=== PATIENT | male | born 1955 | race Caucasian/White ===

== ENCOUNTER 2021-01-11 12:38 | Outpatient (REF) | payer MEDICARE, SELFPAY ==
[2021-01-11 14:11] LABS: MANUAL DIFF FLAG NO
[2021-01-11 14:23] LABS: Basophils Percent Auto 0.7 % (0-2); Eosinophils Absolute Auto 0.3 X10*3/uL (0.0-0.4); Eosinophils Percent Auto 4.3 % (0-4); Hematocrit 46.7 % (42-52); Hemoglobin 15.9 g/dl (14.0-18.0); Imm Gran Abs Auto 0.02 X10*3/uL (0.00-0.03); Imm Gran Pct Auto 0.3 % (0.0-0.4); Lymphocytes Absolute Auto 1.8 X10*3/uL (1.2-4.9); Lymphocytes Percent Auto 31.5 % (20-40); Mean Corpuscular Hemoglobin 29.7 pg (27.0-33.0); Mean Corpuscular Volume 87.1 fL (80-98); Mean Platelet Volume 10.2 fL (9.4-12.4); Monocytes Absolute Auto 0.6 X10*3/uL (0.1-1.2); Monocytes Percent Auto 10.2 % (2-11); Neutrophils Absolute Auto 3.1 X10*3/uL (2.0-8.3); Platelet Count 277 X10*3/uL (160-400); Red Blood Count 5.36 X10*6/uL (4.60-5.80); Red Cell Distribution Width 14.1 % (11.0-16.0); White Blood Count 5.8 X10*3/uL (4.8-10.8)
[2021-01-11 14:33] LABS: Alanine Aminotransferase 59 U/L (0-40); Albumin Level 4.7 g/dL (3.5-5.0); Alkaline Phosphatase 60 U/L (39-117); Anion Gap 15 (12-20); Aspartate Amino Transferase 44 U/L (5-37); Bilirubin Total 1.1 mg/dL (0.0-1.0); Blood Urea Nitrogen 19 mg/dL (9-16); Carbon Dioxide 22 mmol/L (22-29); Chloride 110 mmol/L (96-108); Cholesterol 195 mg/dL; Estimated Glomerular Filt Rate > 60; Glucose Fasting 88 mg/dL (60-99); HDL Cholesterol 33 mg/dL; LDL Cholesterol Calculated 136 mg/dl; Potassium 3.9 mmol/L (3.3-5.1); Sodium 143 mmol/L (135-145); Total Protein 7.8 g/dL (6.5-8.0); Triglycerides 130 mg/dL
[2021-01-11 15:32] LABS: Prostate Specific Antigen 4.62 ng/mL (<0.05-4.0)
== END 2021-01-11 12:39 | disposition home or self-care (01) ==
LOC: HO.10HDL 12:38
PROVIDERS: Visit Provider Internal Medicine Medical Oncology
DX: Z12.5 Encounter for screening for malignant neoplasm of prostate (principal); I10 Essential (primary) hypertension; E66.9 Obesity, unspecified; J44.9 Chronic obstructive pulmonary disease, unspecified; Z87.891 Personal history of nicotine dependence
CPT/HCPCS: 36415; 80053; 80061; 84153; 85025

== ENCOUNTER 2021-04-12 12:30 | Outpatient (REF) | payer MEDICARE, SELFPAY ==
[2021-04-12 13:22] LABS: MANUAL DIFF FLAG NO
[2021-04-12 13:25] LABS: Basophils Percent Auto 0.7 % (0-2); Eosinophils Absolute Auto 0.2 X10*3/uL (0.0-0.4); Eosinophils Percent Auto 3.6 % (0-4); Hemoglobin 15.7 g/dl (14.0-18.0); Imm Gran Abs Auto 0.01 X10*3/uL (0.00-0.03); Imm Gran Pct Auto 0.2 % (0.0-0.4); Lymphocytes Absolute Auto 2.3 X10*3/uL (1.2-4.9); Lymphocytes Percent Auto 38.3 % (20-40); Mean Corpuscular HGB Conc 34.1 g/dl (31.0-36.0); Mean Corpuscular Hemoglobin 29.9 pg (27.0-33.0); Mean Corpuscular Volume 87.6 fL (80-98); Mean Platelet Volume 10.3 fL (9.4-12.4); Monocytes Absolute Auto 0.7 X10*3/uL (0.1-1.2); Monocytes Percent Auto 10.8 % (2-11); Neutrophils Absolute Auto 2.8 X10*3/uL (2.0-8.3); Neutrophils Percent Auto 46.4 % (45-73); Platelet Count 292 X10*3/uL (160-400); Red Blood Count 5.25 X10*6/uL (4.60-5.80); Red Cell Distribution Width 13.9 % (11.0-16.0); White Blood Count 6.1 X10*3/uL (4.8-10.8)
[2021-04-12 14:03] LABS: Alanine Aminotransferase 47 U/L (0-40); Albumin Level 4.5 g/dL (3.5-5.0); Alkaline Phosphatase 56 U/L (39-117); Amylase 137 U/L (28-100); Anion Gap 12 (12-20); Aspartate Amino Transferase 31 U/L (5-37); Bilirubin Total 0.6 mg/dL (0.0-1.0); Blood Urea Nitrogen 18 mg/dL (9-16); Calcium 9.7 mg/dL (8.4-10.2); Carbon Dioxide 24 mmol/L (22-29); Chloride 111 mmol/L (96-108); Estimated Glomerular Filt Rate > 60; Glucose Random 82 mg/dL (60-115); Lipase 43 U/L (8-78); Potassium 4.1 mmol/L (3.3-5.1); Sodium 143 mmol/L (135-145); Total Protein 7.7 g/dL (6.5-8.0)
[2021-04-12 14:24] LABS: Prostate Specific Antigen 5.27 ng/mL (<0.05-4.0)
== END 2021-04-12 12:31 | disposition home or self-care (01) ==
LOC: HO.10HDL 12:30
PROVIDERS: Visit Provider Internal Medicine Medical Oncology
DX: Z12.5 Encounter for screening for malignant neoplasm of prostate (principal); I10 Essential (primary) hypertension; J44.9 Chronic obstructive pulmonary disease, unspecified; K80.20 Calculus of gallbladder without cholecystitis without obstruction; E66.9 Obesity, unspecified
CPT/HCPCS: 36415; 80053; 82150; 83690; 84153; 85025

== ENCOUNTER 2021-05-10 12:31 | Outpatient (REF) | payer MEDICARE, SELFPAY ==
[2021-05-10 13:47] LABS: Amylase 207 U/L (28-100)
[2021-05-10 13:57] LABS: PSA,Total (Free>4and<10) 5.06 ng/mL (0.00-4.00)
[2021-05-11 12:30] LABS: Free Prostate Spec Ag 0.5 ng/mL; Percent Free Prostate Spec Ag 11 % (calc) (>25); Prostate Specific Ag Total 4.6 ng/mL (< OR = 4.0)
== END 2021-05-10 12:32 | disposition home or self-care (01) ==
LOC: HO.10HDL 12:31
PROVIDERS: PCP Internal Medicine Medical Oncology; Visit Provider Internal Medicine Medical Oncology
DX: Z71.89 Other specified counseling (principal)
CPT/HCPCS: 36415; 82150; 84153; 84154

== ENCOUNTER 2021-08-10 12:40 | Outpatient (REF) | payer MEDICARE, SELFPAY ==
[2021-08-10 13:58] LABS: MANUAL DIFF FLAG NO
[2021-08-10 14:08] LABS: Basophils Percent Auto 0.7 % (0-2); Eosinophils Absolute Auto 0.4 X10*3/uL (0.0-0.4); Eosinophils Percent Auto 6.6 % (0-4); Hematocrit 45.5 % (42.0-52.0); Hemoglobin 15.6 g/dl (14.0-18.0); Imm Gran Abs Auto 0.02 X10*3/uL (0.00-0.03); Imm Gran Pct Auto 0.3 % (0.0-0.4); Lymphocytes Percent Auto 35.1 % (20-40); Mean Corpuscular HGB Conc 34.3 g/dl (31.0-36.0); Mean Corpuscular Volume 87.5 fL (80.0-98.0); Mean Platelet Volume 9.8 fL (9.4-12.4); Monocytes Absolute Auto 0.5 X10*3/uL (0.1-1.2); Monocytes Percent Auto 9.3 % (2-11); Neutrophils Absolute Auto 2.7 x10*3/uL (2.0-8.3); Platelet Count 285 X10*3/uL (160-400); Red Cell Distribution Width 14.1 % (11.0-16.0); White Blood Count 5.7 X10*3/uL (4.8-10.8)
[2021-08-10 14:51] LABS: Alanine Aminotransferase 52 U/L (0-40); Albumin Level 4.6 g/dL (3.5-5.0); Alkaline Phosphatase 54 U/L (39-117); Amylase 114 U/L (28-100); Anion Gap 13 (12-20); Aspartate Amino Transferase 42 U/L (5-37); Bilirubin Total 0.7 mg/dL (0.0-1.0); Blood Urea Nitrogen 16 mg/dL (9-16); Carbon Dioxide 22 mmol/L (22-29); Chloride 110 mmol/L (96-108); Cholesterol 205 mg/dL; Estimated Glomerular Filt Rate > 60; Glucose Fasting 91 mg/dL (60-99); HDL Cholesterol 33 mg/dL; LDL Cholesterol Calculated 143 mg/dl; Potassium 3.7 mmol/L (3.3-5.1); Sodium 141 mmol/L (135-145); Total Protein 7.7 g/dL (6.5-8.0); Triglycerides 148 mg/dL
== END 2021-08-10 12:41 | disposition home or self-care (01) ==
LOC: HO.10HDL 12:40
PROVIDERS: Visit Provider Internal Medicine Medical Oncology
DX: I10 Essential (primary) hypertension (principal); J44.9 Chronic obstructive pulmonary disease, unspecified; E66.9 Obesity, unspecified; N40.0 Benign prostatic hyperplasia without lower urinary tract symptoms
CPT/HCPCS: 36415; 80053; 80061; 82150; 85025

== ENCOUNTER 2021-08-21 17:49 | Emergency (ER) | payer MEDICARE, SELFPAY ==
--- NOTE | ~2021-08-21 | XR_ITS ---
EXAMINATION: XR FOREARM, RIGHT XR HAND/WRIST, RIGHT CLINICAL INFORMATION: Pain following fall. COMPARISON: None TECHNIQUE: AP and lateral views of the right forearm. AP, oblique, and lateral views of the right hand and wrist. FINDINGS: RIGHT FOREARM: No proximal radius or ulnar fracture. Tiny ulnotrochlear marginal osteophytes. No osseous erosion. RIGHT HAND AND WRIST: Mildly displaced, oblique fracture through the radial styloid with a resultant fracture gap measuring approximately 0.2 cm and contacting the ulnar aspect of the articular surface. There is mild comminution with an additional fracture fragment along the anterior aspect of the articular surface measuring up to 0.7 cm in AP dimension. Circumferential soft tissue swelling. XR/XR forearm RT 2V IMPRESSION: Comminuted distal radial fracture with multiple extensions to the radiocarpal articular surface. Circumferential soft tissue swelling.
--- NOTE | ~2021-08-21 | XR_ITS ---
EXAMINATION: XR FOREARM, RIGHT XR HAND/WRIST, RIGHT CLINICAL INFORMATION: Pain following fall. COMPARISON: None TECHNIQUE: AP and lateral views of the right forearm. AP, oblique, and lateral views of the right hand and wrist. FINDINGS: RIGHT FOREARM: No proximal radius or ulnar fracture. Tiny ulnotrochlear marginal osteophytes. No osseous erosion. RIGHT HAND AND WRIST: Mildly displaced, oblique fracture through the radial styloid with a resultant fracture gap measuring approximately 0.2 cm and contacting the ulnar aspect of the articular surface. There is mild comminution with an additional fracture fragment along the anterior aspect of the articular surface measuring up to 0.7 cm in AP dimension. Circumferential soft tissue swelling. XR/XR hand wrist RT IMPRESSION: Comminuted distal radial fracture with multiple extensions to the radiocarpal articular surface. Circumferential soft tissue swelling.
[2021-08-21 17:59] VITALS: BP 152/77; PULSE 78; RESP 18; TEMP 36.9; O2SAT 98; BMI 30.2
[2021-08-21] MEDS: oxyCODONE HCl Immed Release 5 MG TABLET PO (19:19)
--- NOTE | 2021-08-21 19:46 | ED.EXTPRO ---
HPI - Extremity Problem General Chief complaint: Extremity Injury, Upper Stated complaint: fall - right wrist swelling Time Seen by Provider: 08/21/21 19:10 Source: patient Mode of arrival: ambulatory Limitations: no limitations History of Present Illness HPI Narrative: 66-year-old male who was blowing leaves on his roof, getting down off his ladder, and missed the last step and fell off of the ladder from the 2nd rung, about 2 ft fall, and his right wrist when under the leaf blower backpack he was wearing. He did not hit his head, no loss of consciousness. Related Data Previous Rx's Medication Instructions Recorded oxycodone 5 mg capsule 5 mg PO Q6H PRN #12 cap MDD 20 mg 08/21/21 oxycodone 5 mg capsule 5 mg PO TID PRN 3 Days #9 cap 08/21/21 Allergies Allergy/AdvReac Type Severity Reaction Status Date / Time No Known Allergies Allergy Unverified 06/11/20 16:52 Review of Systems Constitutional: Constitutional: Denies body ache(s), Denies chills, Denies fatigue, Denies fever(s), Denies headache(s), Denies malaise and Denies weakness Eyes: Eyes: Denies diplopia ENT: Denies vertigo, Denies dizziness, Denies otalgia, Denies headache(s), Denies mouth pain, Denies post nasal drip, Denies sinus pain, Denies sinus pressure, Denies sore throat and Denies throat swelling Cardiovascular: Cardiovascular: Denies chest pain, Denies syncope, Denies leg edema, Denies lightheadedness, Denies Loss of Consciousness, Denies palpitations and Denies dyspnea Respiratory: Respiratory: Denies chest congestion, Denies cough and Denies dyspnea Musculoskeletal: Musculoskeletal: Reports arthralgias, Reports joint swelling and Reports tingling Neurologic: Denies confusion, Denies vertigo, Denies dizziness, Denies syncope, Denies headache(s), Reports tingling and Denies weakness Psychiatric: Psychiatric: Denies anxiety, Denies confusion and Denies depression Endocrine: Endocrine: Denies fatigue and Denies palpitations Allergic/Immunologic: Allergic/Immunologic: Denies throat swelling PMFSH Past Medical History Medical History COPD (chronic obstructive pulmonary disease) HTN (hypertension) Prostate CA Social History Social History Advance Directives: No Advance Directives Information Provided: No Physical Exam Vital Signs: Vital Signs: Last Vital Signs Temp 98.4 F 08/21/21 17:59 Pulse 78 08/21/21 17:59 Resp 18 08/21/21 17:59 BP 152/77 H 08/21/21 17:59 Pulse Ox 98 08/21/21 17:59 Body Mass Index 30.2 Const: General: No confusion Nutritional Appearance: well nourished Orientation/consciousness: No confusion Limitations: no limitations Eyes: Conjunctivae: conjunctivae normal Pupils: Equal, round and reactive pupils present EOM: EOMs intact bilaterally Neck: Neck: Yes full ROM, Yes no lymphadenopathy and Yes supple Resp: Effort & Inspection: normal respiratory effort and able to speak in complete sentences Auscultation: clear to auscultation bilaterally, no crackles, no rales, no rhonchi and no wheezes Cardio: Rate: regular rate Rhythm: regular rhythm Heart sounds: S1 normal heart sound present and S2 normal heart sound present Skin: General skin exam: no rashes or lesions noted Neuro: General: No confusion Cranial nerves: Yes Equal, round and reactive pupils present Extrem: Right upper extremity: normal capillary refill and wrist Details: abnormal to inspection Details: joint swelling, tenderness Location: of the distal radius, swelling Location: of the dorsal wrist, normal ROM, normal vascular exam and radial pulse present; Negative for no unusual warmth, no lacerations, no ecchymosis and no crepitus Psych: Appearance: grossly normal Affect: normal affect Attitude: cooperative Thought process: Normal thought process present Course Course Course Narrative: 66-year-old male with comminuted distal radial fracture extending into the articular surface. Patient was splinted in a volar fiberglass splint, counseled to employ rice, given oxycodone, and follow-up with Ortho Discharge Plan Discharge Clinical Impression: Fracture of wrist Qualifiers: Encounter type: initial encounter Fracture type: closed Laterality: right Qualified Code(s): S62.101A - Fracture of unspecified carpal bone, right wrist, initial encounter for closed fracture Patient Disposition: Home, Self-Care Instructions: Splint Care (ED), R.I.C.E. Treatment (ED) Additional Instructions: Please call [facility] at [phone] Monday for follow-up appointment this week. Please leave the wrist print on it until you are seen by orthopedics. Please rest, and elevate your right hand. Use oxycodone as prescribed for pain. Please return for any new or concerning symptoms. Prescriptions: New oxycodone 5 mg capsule 5 mg PO TID PRN (Reason: pain) 3 Days Qty: 9 RF: 0 oxycodone 5 mg capsule 5 mg PO Q6H MDD 20 mg PRN (Reason: pain) Qty: 12 RF: 0 Referrals: Fede Hook MD [Physician] - 2 days Interventions: ED Discharge Assessment Last Done: 08/21/21 19:50 Discharge Date/Time: 08/21/21 19:54
== END 2021-08-21 19:54 | disposition home or self-care (01) ==
PROVIDERS: Emergency Provider Internal Medicine; PCP Internal Medicine Medical Oncology
DX: S52.501A Unspecified fracture of the lower end of right radius, initial encounter for closed fracture (principal); I10 Essential (primary) hypertension; J44.9 Chronic obstructive pulmonary disease, unspecified; W11.XXXA Fall on and from ladder, initial encounter; Y93.9 Activity, unspecified; Y92.009 Unspecified place in unspecified non-institutional (private) residence as the place of occurrence of the external cause; Y99.9 Unspecified external cause status
CPT/HCPCS: 29125; 73090; 73110; 73130; 99283; 99284

== ENCOUNTER 2021-08-23 09:07 | Outpatient (REF) | payer MEDICARE, SELFPAY ==
--- NOTE | ~2021-08-23 | XR_ITS ---
EXAMINATION: XR WRIST, RIGHT CLINICAL INFORMATION: Pain. Fracture. COMPARISON: Previous x-rays most recent 08/21/2021 TECHNIQUE: PA, lateral, and oblique views of the right wrist. FINDINGS: There is a nondisplaced fracture of the radial styloid and appears unchanged. The intra-articular with the radiocarpal and distal radial ulnar joints. No other fracture is seen. There may be a cyst in the triquetrum. Carpal bones are otherwise normal. There is diffuse soft tissue swelling. XR/XR wrist RT min 3V IMPRESSION: No change in right distal radius fracture.
== END 2021-08-23 09:08 | disposition home or self-care (01) ==
LOC: HO.HOSX 09:07
PROVIDERS: Visit Provider Physician Assistant
DX: S52.501A Unspecified fracture of the lower end of right radius, initial encounter for closed fracture (principal)
CPT/HCPCS: 29085; 73110; 99202

== ENCOUNTER 2021-08-31 10:07 | Outpatient (REF) | payer MEDICARE, SELFPAY ==
--- NOTE | ~2021-08-31 | XR_ITS ---
EXAMINATION: XR WRIST, RIGHT CLINICAL INFORMATION: Right wrist pain status post fracture. COMPARISON: None TECHNIQUE: PA, lateral, and oblique views of the right wrist. FINDINGS: Again seen is a nondisplaced, comminuted intra-articular fracture of the distal radius with similar appearance. The distal ulna is intact. The carpal bones are normally aligned. The soft tissues are unremarkable. XR/XR wrist RT min 3V IMPRESSION: Similar appearance of distal right radial fracture without evidence for significant interval healing.
== END 2021-08-31 10:08 | disposition home or self-care (01) ==
LOC: HO.HOSX 10:07
PROVIDERS: Visit Provider Orthopaedic Surgery
DX: S52.501D Unspecified fracture of the lower end of right radius, subsequent encounter for closed fracture with routine healing (principal)
CPT/HCPCS: 73110; 99212

== ENCOUNTER 2021-09-29 08:30 | Outpatient (REF) | payer MEDICARE, SELFPAY ==
--- NOTE | ~2021-09-29 | XR_ITS ---
EXAMINATIONS: XR wrist RT min 3V CLINICAL INFORMATION: Reason for Exam M25.531 - Pain in right wrist COMPARISON: 08/31/2021 VIEWS: Frontal lateral and oblique FINDINGS: Redemonstration of a nondisplaced comminuted intra-articular fracture of the distal radius. Bone alignments remain satisfactory. No new fractures. XR/XR wrist RT min 3V IMPRESSION: Unhealed stable nondisplaced comminuted intra-articular fracture of the distal radius.
== END 2021-09-29 08:31 | disposition home or self-care (01) ==
LOC: HO.HOSX 08:30
PROVIDERS: Visit Provider Orthopaedic Surgery
DX: S52.501D Unspecified fracture of the lower end of right radius, subsequent encounter for closed fracture with routine healing (principal)
CPT/HCPCS: 73110; 99212

== ENCOUNTER 2022-03-16 11:46 | Outpatient (REF) | payer MEDICARE, SELFPAY ==
[2022-03-16 13:47] LABS: MANUAL DIFF FLAG NO
[2022-03-16 14:09] LABS: Basophils Absolute Auto 0.1 X10*3/uL (0.0-0.2); Eosinophils Absolute Auto 0.2 X10*3/uL (0.0-0.4); Hematocrit 47.8 % (42.0-52.0); Imm Gran Abs Auto 0.01 X10*3/uL (0.00-0.03); Imm Gran Pct Auto 0.2 % (0.0-0.4); Lymphocytes Absolute Auto 1.7 X10*3/uL (1.2-4.9); Lymphocytes Percent Auto 32.6 % (20-40); Mean Corpuscular HGB Conc 33.5 g/dl (31.0-36.0); Mean Corpuscular Hemoglobin 29.4 pg (27.0-33.0); Mean Corpuscular Volume 87.9 fL (80.0-98.0); Mean Platelet Volume 10.3 fL (9.4-12.4); Monocytes Absolute Auto 0.5 X10*3/uL (0.1-1.2); Monocytes Percent Auto 9.9 % (2-11); Neutrophils Absolute Auto 2.8 x10*3/uL (2.0-8.3); Neutrophils Percent Auto 52.3 % (45-73); Platelet Count 295 X10*3/uL (160-400); Red Blood Count 5.44 X10*6/uL (4.60-5.80); White Blood Count 5.3 X10*3/uL (4.8-10.8)
[2022-03-16 14:31] LABS: Alanine Aminotransferase 54 U/L (0-40); Albumin Level 4.6 g/dL (3.5-5.0); Alkaline Phosphatase 66 U/L (39-117); Anion Gap 16 (12-20); Aspartate Amino Transferase 48 U/L (5-37); Bilirubin Total 0.8 mg/dL (0.0-1.0); Blood Urea Nitrogen 19 mg/dL (9-16); Calcium 9.2 mg/dL (8.4-10.2); Carbon Dioxide 19 mmol/L (22-29); Chloride 110 mmol/L (96-108); Cholesterol 188 mg/dL; Estimated Glomerular Filt Rate > 60; Glucose Fasting 85 mg/dL (60-99); HDL Cholesterol 32 mg/dL; LDL Cholesterol Calculated 132 mg/dl; Potassium 4.5 mmol/L (3.3-5.1); Sodium 140 mmol/L (135-145); Total Protein 8.2 g/dL (6.5-8.0); Triglycerides 123 mg/dL
[2022-03-16 15:08] LABS: Prostate Specific Antigen 7.31 ng/mL (<0.05-4.0)
== END 2022-03-16 11:47 | disposition home or self-care (01) ==
LOC: HO.10HDL 11:46
PROVIDERS: Visit Provider Internal Medicine Medical Oncology
DX: Z12.5 Encounter for screening for malignant neoplasm of prostate (principal); I10 Essential (primary) hypertension; N40.0 Benign prostatic hyperplasia without lower urinary tract symptoms; C61 Malignant neoplasm of prostate; E66.3 Overweight
CPT/HCPCS: 36415; 80053; 80061; 84153; 85025

== ENCOUNTER 2022-05-10 12:07 | Outpatient (REF) | payer MEDICARE, SELFPAY ==
[2022-05-10 13:16] LABS: MANUAL DIFF FLAG NO
[2022-05-10 13:35] LABS: Basophils Percent Auto 0.7 % (0-2); Eosinophils Absolute Auto 0.2 X10*3/uL (0.0-0.4); Eosinophils Percent Auto 3.8 % (0-4); Hemoglobin 15.7 g/dl (14.0-18.0); Imm Gran Abs Auto 0.01 X10*3/uL (0.00-0.03); Imm Gran Pct Auto 0.2 % (0.0-0.4); Lymphocytes Absolute Auto 2.3 X10*3/uL (1.2-4.9); Lymphocytes Percent Auto 40.3 % (20-40); Mean Corpuscular HGB Conc 34.1 g/dl (31.0-36.0); Mean Corpuscular Hemoglobin 29.4 pg (27.0-33.0); Mean Corpuscular Volume 86.1 fL (80.0-98.0); Monocytes Absolute Auto 0.5 X10*3/uL (0.1-1.2); Monocytes Percent Auto 9.2 % (2-11); Neutrophils Absolute Auto 2.6 x10*3/uL (2.0-8.3); Neutrophils Percent Auto 45.8 % (45-73); Platelet Count 282 X10*3/uL (160-400); Red Blood Count 5.34 X10*6/uL (4.60-5.80); Red Cell Distribution Width 13.9 % (11.0-16.0); White Blood Count 5.8 X10*3/uL (4.8-10.8)
[2022-05-10 13:43] LABS: Alanine Aminotransferase 49 U/L (0-40); Albumin Level 4.4 g/dL (3.5-5.0); Alkaline Phosphatase 63 U/L (39-117); Anion Gap 13 (12-20); Aspartate Amino Transferase 37 U/L (5-37); Bilirubin Total 0.3 mg/dL (0.0-1.0); Blood Urea Nitrogen 13 mg/dL (9-16); Carbon Dioxide 24 mmol/L (22-29); Chloride 108 mmol/L (96-108); Estimated Glomerular Filt Rate > 60; Glucose Random 94 mg/dL (60-115); Potassium 3.6 mmol/L (3.3-5.1); Sodium 141 mmol/L (135-145); Total Protein 7.7 g/dL (6.5-8.0)
[2022-05-10 13:55] LABS: Prostate Specific Antigen 6.52 ng/mL (<0.05-4.0)
== END 2022-05-10 12:08 | disposition home or self-care (01) ==
LOC: HO.10HDL 12:07
PROVIDERS: Visit Provider Internal Medicine Medical Oncology
DX: Z12.5 Encounter for screening for malignant neoplasm of prostate (principal); C61 Malignant neoplasm of prostate
CPT/HCPCS: 36415; 80053; 84153; 85025

== ENCOUNTER 2022-11-17 09:28 | Outpatient (REF) | payer MEDICARE, SELFPAY ==
[2022-11-17 10:54] LABS: MANUAL DIFF FLAG NO
[2022-11-17 11:25] LABS: Basophils Percent Auto 0.6 % (0-2); Eosinophils Absolute Auto 0.2 X10*3/uL (0.0-0.4); Eosinophils Percent Auto 2.7 % (0-4); Hematocrit 47.2 % (42.0-52.0); Imm Gran Abs Auto 0.01 X10*3/uL (0.00-0.03); Imm Gran Pct Auto 0.1 % (0.0-0.4); Lymphocytes Absolute Auto 2.8 X10*3/uL (1.2-4.9); Lymphocytes Percent Auto 41.7 % (20-40); Mean Corpuscular HGB Conc 33.9 g/dl (31.0-36.0); Mean Corpuscular Hemoglobin 29.3 pg (27.0-33.0); Mean Corpuscular Volume 86.4 fL (80.0-98.0); Mean Platelet Volume 10.4 fL (9.4-12.4); Monocytes Absolute Auto 0.6 X10*3/uL (0.1-1.2); Monocytes Percent Auto 8.5 % (2-11); Neutrophils Absolute Auto 3.1 x10*3/uL (2.0-8.3); Neutrophils Percent Auto 46.4 % (45-73); Platelet Count 297 X10*3/uL (160-400); Red Blood Count 5.46 X10*6/uL (4.60-5.80); Red Cell Distribution Width 14.3 % (11.0-16.0); White Blood Count 6.7 X10*3/uL (4.8-10.8)
[2022-11-17 12:08] LABS: Alanine Aminotransferase 56 U/L (0-40); Albumin Level 4.4 g/dL (3.5-5.0); Alkaline Phosphatase 60 U/L (39-117); Anion Gap 16 (12-20); Aspartate Amino Transferase 44 U/L (5-37); Bilirubin Total 0.9 mg/dL (0.0-1.0); Blood Urea Nitrogen 15 mg/dL (9-16); Calcium 9.3 mg/dL (8.4-10.2); Carbon Dioxide 22 mmol/L (22-29); Chloride 111 mmol/L (96-108); Cholesterol 206 mg/dL; Estimated Glomerular Filt Rate > 60; Glucose Fasting 76 mg/dL (60-99); HDL Cholesterol 32 mg/dL; LDL Cholesterol Calculated 140 mg/dl; Potassium 4.3 mmol/L (3.3-5.1); Prostate Specific Antigen 8.43 ng/mL (<0.05-4.0); Sodium 145 mmol/L (135-145); Total Protein 7.5 g/dL (6.5-8.0); Triglycerides 174 mg/dL
== END 2022-11-17 09:29 | disposition home or self-care (01) ==
LOC: HO.10HDL 09:28
PROVIDERS: Visit Provider Internal Medicine Medical Oncology
DX: Z12.5 Encounter for screening for malignant neoplasm of prostate (principal); C61 Malignant neoplasm of prostate; I10 Essential (primary) hypertension
CPT/HCPCS: 36415; 80053; 80061; 84153; 85025

== ENCOUNTER 2023-01-05 11:28 | Outpatient (REF) | payer MEDICARE, SELFPAY ==
[2023-01-05 13:33] LABS: Basophils Percent Auto 0.6 % (0-2); Eosinophils Absolute Auto 0.2 X10*3/uL (0.0-0.4); Eosinophils Percent Auto 2.5 % (0-4); Hematocrit 46.2 % (42.0-52.0); Hemoglobin 15.7 g/dl (14.0-18.0); Imm Gran Abs Auto 0.02 X10*3/uL (0.00-0.03); Imm Gran Pct Auto 0.3 % (0.0-0.4); Lymphocytes Absolute Auto 2.3 X10*3/uL (1.2-4.9); Lymphocytes Percent Auto 35.4 % (20-40); MANUAL DIFF FLAG NO; Mean Corpuscular Hemoglobin 29.3 pg (27.0-33.0); Mean Corpuscular Volume 86.4 fL (80.0-98.0); Mean Platelet Volume 10.1 fL (9.4-12.4); Monocytes Absolute Auto 0.6 X10*3/uL (0.1-1.2); Monocytes Percent Auto 8.6 % (2-11); Neutrophils Absolute Auto 3.4 x10*3/uL (2.0-8.3); Neutrophils Percent Auto 52.6 % (45-73); Platelet Count 284 X10*3/uL (160-400); Red Blood Count 5.35 X10*6/uL (4.60-5.80); Red Cell Distribution Width 14.2 % (11.0-16.0); White Blood Count 6.5 X10*3/uL (4.8-10.8)
[2023-01-05 13:58] LABS: Alanine Aminotransferase 47 U/L (0-40); Albumin Level 4.4 g/dL (3.5-5.0); Alkaline Phosphatase 65 U/L (39-117); Anion Gap 12 (12-20); Aspartate Amino Transferase 38 U/L (5-37); Bilirubin Total 0.9 mg/dL (0.0-1.0); Blood Urea Nitrogen 16 mg/dL (9-16); Calcium 9.1 mg/dL (8.4-10.2); Carbon Dioxide 24 mmol/L (22-29); Chloride 109 mmol/L (96-108); Estimated Glomerular Filt Rate > 60; Glucose Fasting 81 mg/dL (60-99); Potassium 4.1 mmol/L (3.3-5.1); Sodium 141 mmol/L (135-145); Total Protein 7.2 g/dL (6.5-8.0)
[2023-01-05 14:14] LABS: Prostate Specific Antigen 8.74 ng/mL (<0.05-4.0)
== END 2023-01-05 11:29 | disposition home or self-care (01) ==
LOC: HO.10HDL 11:28
PROVIDERS: Visit Provider Internal Medicine Medical Oncology
DX: C61 Malignant neoplasm of prostate (principal); E66.9 Obesity, unspecified; I10 Essential (primary) hypertension; Z12.5 Encounter for screening for malignant neoplasm of prostate
CPT/HCPCS: 36415; 80053; 84153; 85025

== ENCOUNTER 2023-04-07 11:38 | Outpatient (REF) | payer MEDICARE, SELFPAY ==
[2023-04-07 13:27] LABS: MANUAL DIFF FLAG NO
[2023-04-07 13:41] LABS: Basophils Percent Auto 0.5 % (0-2); Eosinophils Absolute Auto 0.1 X10*3/uL (0.0-0.4); Eosinophils Percent Auto 1.9 % (0-4); Hematocrit 47.8 % (42.0-52.0); Hemoglobin 16.2 g/dl (14.0-18.0); Imm Gran Abs Auto 0.02 X10*3/uL (0.00-0.03); Imm Gran Pct Auto 0.3 % (0.0-0.4); Lymphocytes Absolute Auto 2.2 X10*3/uL (1.2-4.9); Lymphocytes Percent Auto 35.4 % (20-40); Mean Corpuscular HGB Conc 33.9 g/dl (31.0-36.0); Mean Corpuscular Hemoglobin 29.7 pg (27.0-33.0); Mean Corpuscular Volume 87.5 fL (80.0-98.0); Mean Platelet Volume 10.3 fL (9.4-12.4); Monocytes Absolute Auto 0.5 X10*3/uL (0.1-1.2); Monocytes Percent Auto 8.3 % (2-11); Neutrophils Absolute Auto 3.4 x10*3/uL (2.0-8.3); Neutrophils Percent Auto 53.6 % (45-73); Platelet Count 293 X10*3/uL (160-400); Red Blood Count 5.46 X10*6/uL (4.60-5.80); White Blood Count 6.3 X10*3/uL (4.8-10.8)
[2023-04-07 14:49] LABS: Alanine Aminotransferase 62 U/L (0-40); Albumin Level 4.7 g/dL (3.5-5.0); Alkaline Phosphatase 51 U/L (39-117); Anion Gap 12 (12-20); Aspartate Amino Transferase 49 U/L (5-37); Bilirubin Total 0.9 mg/dL (0.0-1.0); Blood Urea Nitrogen 16 mg/dL (9-16); Calcium 9.3 mg/dL (8.4-10.2); Carbon Dioxide 25 mmol/L (22-29); Chloride 109 mmol/L (96-108); Cholesterol 196 mg/dL; Estimated Glomerular Filt Rate > 60; Glucose Fasting 92 mg/dL (60-99); HDL Cholesterol 36 mg/dL; LDL Cholesterol Calculated 128 mg/dl; Potassium 4.3 mmol/L (3.3-5.1); Sodium 142 mmol/L (135-145); Triglycerides 163 mg/dL
== END 2023-04-07 11:39 | disposition home or self-care (01) ==
LOC: HO.10HDL 11:38
PROVIDERS: Visit Provider Internal Medicine Medical Oncology
DX: Z12.5 Encounter for screening for malignant neoplasm of prostate (principal); I10 Essential (primary) hypertension; N40.0 Benign prostatic hyperplasia without lower urinary tract symptoms; C61 Malignant neoplasm of prostate; E66.9 Obesity, unspecified
CPT/HCPCS: 36415; 80053; 80061; 84153; 85025

== ENCOUNTER 2023-11-22 11:22 | Outpatient (REF) | payer MEDICARE, SELFPAY ==
[2023-11-22 13:16] LABS: MANUAL DIFF FLAG NO
[2023-11-22 13:25] LABS: Basophils Percent Auto 0.9 % (0-2); Eosinophils Absolute Auto 0.3 X10*3/uL (0.0-0.4); Eosinophils Percent Auto 6.1 % (0-4); Hematocrit 46.7 % (42.0-52.0); Hemoglobin 16.1 g/dl (14.0-18.0); Lymphocytes Absolute Auto 1.1 X10*3/uL (1.2-4.9); Lymphocytes Percent Auto 23.6 % (20-40); Mean Corpuscular HGB Conc 34.5 g/dl (31.0-36.0); Mean Corpuscular Hemoglobin 30.1 pg (27.0-33.0); Mean Corpuscular Volume 87.3 fL (80.0-98.0); Mean Platelet Volume 9.6 fL (9.4-12.4); Monocytes Absolute Auto 0.5 X10*3/uL (0.1-1.2); Monocytes Percent Auto 10.3 % (2-11); Neutrophils Absolute Auto 2.6 x10*3/uL (2.0-8.3); Neutrophils Percent Auto 59.1 % (45-73); Platelet Count 228 X10*3/uL (160-400); Red Blood Count 5.35 X10*6/uL (4.60-5.80); Red Cell Distribution Width 14.7 % (11.0-16.0); White Blood Count 4.5 X10*3/uL (4.8-10.8)
[2023-11-22 13:41] LABS: Alanine Aminotransferase 57 U/L (0-40); Albumin Level 4.3 g/dL (3.5-5.0); Alkaline Phosphatase 58 U/L (39-117); Anion Gap 9 (12-20); Aspartate Amino Transferase 41 U/L (5-37); Bilirubin Total 0.7 mg/dL (0.0-1.0); Blood Urea Nitrogen 17 mg/dL (9-16); Calcium 8.7 mg/dL (8.4-10.2); Carbon Dioxide 26 mmol/L (22-29); Chloride 109 mmol/L (96-108); Cholesterol 188 mg/dL (<200); Estimated Glomerular Filt Rate > 60; Glucose Fasting 91 mg/dL (60-99); HDL Cholesterol 33 mg/dL (>40); LDL Cholesterol Calculated 124 mg/dL (<100); Potassium 3.7 mmol/L (3.3-5.1); Sodium 140 mmol/L (135-145); Total Protein 7.8 g/dL (6.5-8.0); Triglycerides 157 mg/dL (<150)
[2023-11-22 13:57] LABS: Prostate Specific Antigen 4.79 ng/mL (<0.05-4.0)
[2023-11-22 18:19] LABS: Gamma Glutamyl Transpeptidase 32 U/L (11-51)
== END 2023-11-22 11:23 | disposition home or self-care (01) ==
LOC: HO.10HDL 11:22
PROVIDERS: Visit Provider Internal Medicine Medical Oncology
DX: I10 Essential (primary) hypertension (principal); J44.9 Chronic obstructive pulmonary disease, unspecified; N40.0 Benign prostatic hyperplasia without lower urinary tract symptoms; C61 Malignant neoplasm of prostate; E66.9 Obesity, unspecified; Z12.5 Encounter for screening for malignant neoplasm of prostate
CPT/HCPCS: 36415; 80053; 80061; 82977; 84153; 85025

== ENCOUNTER 2024-03-29 12:12 | Outpatient (REF) | payer MEDICARE, SELFPAY ==
[2024-03-29 13:19] LABS: MANUAL DIFF FLAG NO
[2024-03-29 13:43] LABS: Basophils Percent Auto 0.9 % (0-2); Eosinophils Absolute Auto 0.2 X10*3/uL (0.0-0.4); Eosinophils Percent Auto 3.2 % (0-4); Hematocrit 46.9 % (42.0-52.0); Hemoglobin 16.2 g/dl (14.0-18.0); Imm Gran Abs Auto 0.01 X10*3/uL (0.00-0.03); Imm Gran Pct Auto 0.2 % (0.0-0.4); Lymphocytes Absolute Auto 1.5 X10*3/uL (1.2-4.9); Mean Corpuscular HGB Conc 34.5 g/dl (31.0-36.0); Mean Corpuscular Hemoglobin 30.5 pg (27.0-33.0); Mean Corpuscular Volume 88.3 fL (80.0-98.0); Mean Platelet Volume 9.8 fL (9.4-12.4); Monocytes Absolute Auto 0.5 X10*3/uL (0.1-1.2); Monocytes Percent Auto 10.7 % (2-11); Neutrophils Absolute Auto 2.5 x10*3/uL (2.0-8.3); Platelet Count 281 X10*3/uL (160-400); Red Blood Count 5.31 X10*6/uL (4.60-5.80); Red Cell Distribution Width 13.8 % (11.0-16.0); White Blood Count 4.7 X10*3/uL (4.8-10.8)
[2024-03-29 13:44] LABS: Alanine Aminotransferase 50 U/L (0-40); Albumin Level 4.5 g/dL (3.5-5.0); Alkaline Phosphatase 54 U/L (39-117); Anion Gap 11 (12-20); Aspartate Amino Transferase 41 U/L (5-37); Bilirubin Total 0.8 mg/dL (0.0-1.0); Blood Urea Nitrogen 19 mg/dL (9-16); Calcium 9.3 mg/dL (8.4-10.2); Carbon Dioxide 23 mmol/L (22-29); Chloride 110 mmol/L (96-108); Cholesterol 203 mg/dL (<200); Estimated Glomerular Filt Rate > 60; Glucose Fasting 89 mg/dL (60-99); HDL Cholesterol 34 mg/dL (>40); LDL Cholesterol Calculated 141 mg/dL (<100); Potassium 4.2 mmol/L (3.3-5.1); Sodium 140 mmol/L (135-145); Triglycerides 141 mg/dL (<150)
[2024-03-29 13:55] LABS: Prostate Specific Antigen 1.41 ng/mL (<0.05-4.0)
== END 2024-03-29 12:13 | disposition home or self-care (01) ==
LOC: HO.10HDL 12:12
PROVIDERS: Visit Provider Internal Medicine Medical Oncology
DX: I10 Essential (primary) hypertension (principal); J44.9 Chronic obstructive pulmonary disease, unspecified; K80.20 Calculus of gallbladder without cholecystitis without obstruction; C61 Malignant neoplasm of prostate; E66.9 Obesity, unspecified; Z87.891 Personal history of nicotine dependence; Z12.5 Encounter for screening for malignant neoplasm of prostate
CPT/HCPCS: 36415; 80053; 80061; 84153; 85025

== ENCOUNTER 2024-08-07 11:51 | Outpatient (REF) | payer MEDICARE, SELFPAY ==
[2024-08-07 13:10] LABS: MANUAL DIFF FLAG NO
[2024-08-07 13:12] LABS: Basophils Absolute Auto 0.1 X10*3/uL (0.0-0.2); Basophils Percent Auto 1.3 % (0-2); Eosinophils Absolute Auto 0.3 X10*3/uL (0.0-0.4); Eosinophils Percent Auto 5.9 % (0-4); Hematocrit 47.4 % (42.0-52.0); Hemoglobin 16.2 g/dl (14.0-18.0); Imm Gran Abs Auto 0.01 X10*3/uL (0.00-0.03); Imm Gran Pct Auto 0.2 % (0.0-0.4); Lymphocytes Absolute Auto 1.9 X10*3/uL (1.2-4.9); Lymphocytes Percent Auto 34.6 % (20-40); Mean Corpuscular HGB Conc 34.2 g/dl (31.0-36.0); Mean Corpuscular Hemoglobin 30.2 pg (27.0-33.0); Mean Corpuscular Volume 88.3 fL (80.0-98.0); Mean Platelet Volume 9.4 fL (9.4-12.4); Monocytes Absolute Auto 0.5 X10*3/uL (0.1-1.2); Neutrophils Absolute Auto 2.8 x10*3/uL (2.0-8.3); Platelet Count 327 X10*3/uL (160-400); Red Blood Count 5.37 X10*6/uL (4.60-5.80); Red Cell Distribution Width 14.4 % (11.0-16.0); White Blood Count 5.6 X10*3/uL (4.8-10.8)
[2024-08-07 13:23] LABS: Alanine Aminotransferase 62 U/L (0-40); Albumin Level 4.5 g/dL (3.5-5.0); Alkaline Phosphatase 59 U/L (39-117); Anion Gap 12 (12-20); Aspartate Amino Transferase 57 U/L (5-37); Bilirubin Total 0.6 mg/dL (0.0-1.0); Blood Urea Nitrogen 13 mg/dL (9-16); Calcium 9.3 mg/dL (8.4-10.2); Carbon Dioxide 26 mmol/L (22-29); Chloride 108 mmol/L (96-108); Cholesterol 187 mg/dL (<200); Estimated Glomerular Filt Rate > 60; Glucose Fasting 91 mg/dL (60-99); HDL Cholesterol 32 mg/dL (>40); LDL Cholesterol Calculated 113 mg/dL (<100); Potassium 4.1 mmol/L (3.3-5.1); Sodium 142 mmol/L (135-145); Total Protein 8.1 g/dL (6.5-8.0); Triglycerides 214 mg/dL (<150)
[2024-08-07 13:44] LABS: Prostate Specific Antigen 1.41 ng/mL (<0.05-4.0)
== END 2024-08-07 11:52 | disposition home or self-care (01) ==
LOC: HO.10HDL 11:51
PROVIDERS: Visit Provider Internal Medicine Medical Oncology
DX: Z12.5 Encounter for screening for malignant neoplasm of prostate (principal); I10 Essential (primary) hypertension; C61 Malignant neoplasm of prostate; E66.9 Obesity, unspecified
CPT/HCPCS: 36415; 80053; 80061; 84153; 85025

== ENCOUNTER 2024-10-04 11:48 | Outpatient (REF) | payer MEDICARE, SELFPAY ==
[2024-10-04 13:00] LABS: MANUAL DIFF FLAG NO
[2024-10-04 13:02] LABS: Basophils Percent Auto 0.8 % (0-2); Eosinophils Absolute Auto 0.2 X10*3/uL (0.0-0.4); Eosinophils Percent Auto 3.7 % (0-4); Hematocrit 47.2 % (42.0-52.0); Hemoglobin 16.6 g/dl (14.0-18.0); Imm Gran Abs Auto 0.02 X10*3/uL (0.00-0.03); Imm Gran Pct Auto 0.4 % (0.0-0.4); Lymphocytes Absolute Auto 1.5 X10*3/uL (1.2-4.9); Lymphocytes Percent Auto 30.5 % (20-40); Mean Corpuscular HGB Conc 35.2 g/dl (31.0-36.0); Mean Corpuscular Volume 88.1 fL (80.0-98.0); Mean Platelet Volume 9.4 fL (9.4-12.4); Monocytes Absolute Auto 0.5 X10*3/uL (0.1-1.2); Neutrophils Absolute Auto 2.6 x10*3/uL (2.0-8.3); Neutrophils Percent Auto 53.6 % (45-73); Platelet Count 286 X10*3/uL (160-400); Red Blood Count 5.36 X10*6/uL (4.60-5.80); Red Cell Distribution Width 14.4 % (11.0-16.0); White Blood Count 4.9 X10*3/uL (4.8-10.8)
[2024-10-04 13:20] LABS: Alanine Aminotransferase 53 U/L (0-40); Albumin Level 4.3 g/dL (3.5-5.0); Alkaline Phosphatase 54 U/L (39-117); Anion Gap 10 (12-20); Aspartate Amino Transferase 45 U/L (5-37); Bilirubin Total 0.4 mg/dL (0.0-1.0); Blood Urea Nitrogen 14 mg/dL (9-16); Calcium 8.6 mg/dL (8.4-10.2); Carbon Dioxide 26 mmol/L (22-29); Chloride 111 mmol/L (96-108); Estimated Glomerular Filt Rate > 60; Glucose Random 91 mg/dL (60-115); Sodium 143 mmol/L (135-145); Total Protein 7.8 g/dL (6.5-8.0)
[2024-10-04 13:37] LABS: Prostate Specific Antigen 1.06 ng/mL (<0.05-4.0)
[2024-10-04 13:38] LABS: Gamma Glutamyl Transpeptidase 28 U/L (11-51)
[2024-10-04 13:44] LABS: Erythrocyte Sedimentation Rate 2 MM/HR (0-15)
== END 2024-10-04 11:49 | disposition home or self-care (01) ==
LOC: HO.10HDL 11:48
PROVIDERS: Visit Provider Internal Medicine Medical Oncology
DX: Z12.5 Encounter for screening for malignant neoplasm of prostate (principal); I10 Essential (primary) hypertension; N40.0 Benign prostatic hyperplasia without lower urinary tract symptoms; E66.9 Obesity, unspecified
CPT/HCPCS: 36415; 80053; 82977; 84153; 85025; 85652

== ENCOUNTER 2024-11-05 13:30 | Outpatient (AMB) | payer MEDICARE, SELFPAY ==
--- NOTE | 2024-11-05 13:31 | A.OFFVIS_ITS ---
Vital Signs 3 11/05/24 13:39 Height 5 ft 6 in Weight 202 lb BMI 32.6 BP 163/87 H Blood Pressure Location Lt brachial Position Sitting Pulse 76 Intake Visit Reasons: Large celia on neck Intake Note: Patient is seen in office for evaluation and treatment of a mass of the neck/shoulder. Pt c/o: onset couple yrs ago, was squeeze and pus came out, then came back and feels like is pressing on something, left side is always sore, no discharge, redness ref. 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 He reports occasional discomfort associated with the lesion and feels as the lesion has greatly increased in size. He is requesting excision. Denies any previous surgery in this location. [facility] Medical History Distal radius fracture, right HTN (hypertension) Prostate CA COPD (chronic obstructive pulmonary disease) Surgical History Hx of prostate biopsy (05/2023) Hx of bilateral cataract extraction (1999) Hx of colonoscopy Family History Father No problems noted. Mother HX: breast cancer Review of Systems Const All systems reviewed & are unremarkable except as noted in HPI and below Denies chills, Denies fever(s), Denies headache(s), Denies poor appetite and Denies weakness ENT Denies headache(s) Card Denies chest pain, Denies irregular heart rhythm, Denies palpitations and Denies dyspnea Resp Denies cough, Denies excessive phlegm production and Denies dyspnea GI Denies abdominal pain, Denies bloating, Denies change in bowel habits, Denies constipation, Denies heartburn, Denies diarrhea, Denies nausea and Denies vomiting Denies difficulty urinating and Denies urinary frequency Musc Denies back pain, Denies muscle weakness and Denies numbness Skin/Breast Denies changing lesions and Denies unusual bruising Neuro Denies headache(s), Denies numbness, Denies paresthesias and Denies weakness Psych Denies anxiety and Denies depression Endo Denies palpitations Obdulio/Lymph Denies lymphadenopathy Physical Exam Const General: cooperative and no acute distress Nutritional Appearance: well nourished Orientation/consciousness: patient oriented x3 Limitations: no limitations HEENT Head: Yes normocephalic and Yes atraumatic Ears: hearing grossly normal bilaterally Neck Other: 2 cm epidermal inclusion cyst with no fluctuance to indicate underlying infection. No overlying erythema. Nontender to palpation. Neck images: 2 1. 2 cm epidermal inclusion cyst Resp Effort & Inspection: normal respiratory effort, no audible wheezes, no cough and no respiratory distress Cardio Jugular venous distension: no JVD GI Inspection: Yes normal to inspection Skin Other: Warm, dry, no rash Neuro General: patient oriented x3 Extrem General: Yes no clubbing, cyanosis or edema Office Procedures Excision Details: Preoperative diagnosis: Epidermal inclusion cyst posterior left neck Postoperative diagnosis: Same Procedure: Excision of epidermal inclusion cyst posterior left neck Surgeon: George Bob MD Construction Ironworker: None Anesthesia: Lidocaine 1% with epinephrine 10 mL Indications for procedure: 69-year-old male patient presenting with a large posterior neck epidermal inclusion cyst measuring 2 cm in diameter. Operative findings: 2 cm noninfected epidermal inclusion cyst Specimen: Epidermal inclusion cyst posterior left neck Estimated blood loss: 5 mL Complications: None Procedure details: Patient was brought to the procedure room and placed in a prone position. The site of surgery was confirmed by the patient in the posterior left neck. After ensuring informed consent, the skin was prepped with Betadine and draped in a sterile fashion. Local anesthesia was infiltrated in elliptical fashion oriented transversely over the epidermal inclusion cyst. Elliptical incision was then created with a scalpel again oriented transversely and carried out through subcutaneous tissue down to the cyst wall. Sharp dissection was then used to dissect the lesion from the surrounding subcutaneous tissue. Hemostasis was achieved using light pressure. The specimen was passed off the table and sent to pathology for further examination. Skin was then closed using interrupted 3-0 nylon sutures. Sterile dressings consisting of 2 x 2 gauze and Tegaderm were then applied. The patient tolerated the procedure well. He will follow-up in the office in 1 week for suture removal. [id number] scalp/neck/hands/feet/genitalia 1.1cm-2cm Procedure code (CPT) selection complete Assessment & Plan Assessment & Plan (1) Epidermal inclusion cyst: Code(s): L72.0 - Epidermal cyst Category: Medical Plan 69-year-old male patient presenting with a large epidermal inclusion cyst of the posterior neck. He underwent excision of this lesion under local anesthesia today and tolerated the procedure well. He will return in 1 week for suture removal. Orders: Orders 2 Surgical Today L72.0 - Epidermal cyst Coding Level of Care Code New Pt Level 4 (90028) Diagnoses Epidermal inclusion cyst L72.0 CPT Codes Scalp/Neck/Hands/Feet/Genetalia - CPT: 68314-[id number] scalp/neck/hands/feet/genitalia 1.1cm-2cm ([id number])
[2024-11-05 13:39] VITALS: BP 163/87; PULSE 76; BMI 32.6
--- OUTSIDE RECORDS SUMMARY | 2024-11-05 14:36 | XMS_ITS | Clinical Summary ---
Author Organization [facility] it Address [address] [place] [address] Care Team Providers Care Radar Engineer Name Role Phone Unavailable Primary Care Provider Unavailabl e Social History Tobacco Use Types Packs/Day Years Used Date Smoking Tobacco: Never Assessed Sex and Gender Information Value Date Recorded Sex Assigned at Not on file Legal Sex Male 4:20 AM EST Gender Identity Not on file Sexual Orientation Not on file Plan of Treatment Health Maintenance Due Date Last Done Comments DTaP,Tdap,and Td Vaccines (1 - Tdap) 1973 Zoster Vaccines (1 of 2) 02/14/2004 Pneumococcal Vaccine: 50+ Ye ars (1 of 1 - PCV) 2019 Abdominal Aortic Aneurysm (A AA) Screen 10/24/2023 Cholesterol Screening (Lipid Panel) 10/24/2023 Colorectal Cancer Screening: Colonoscopy 10/24/2023 Depression Screening 10/24/2023 Falls Risk Assessment 10/24/2023 Hepatitis C Screening 10/24/2023 Social Influencers of Health Screening 10/24/2023 COVID-19 Vaccine ( - 2023-2 5 season) 2024 Influenza Vaccine (#1) 2024 RSV Immunization Patients 60 + Years Old (1 - 1-dose 75+ series) 2029 HIB Vaccines Aged Out No longer eligi ble based on patient's age to complete this topic HPV Vaccines Aged Out No longer eligi ble based on patient's age to complete this topic Hepatitis A Vaccines Aged Out No long er eligible based on patient's age to complete this topic Hepatitis B Vaccines Aged Out No long er eligible based on patient's age to complete this topic IPV Vaccines Aged Out No longer eligi ble based on patient's age to complete this topic MMR Vaccines Aged Out No longer eligi ble based on patient's age to complete this topic Meningococcal ACWY Vaccine Aged Out N o longer eligible based on patient's age to complete this topic RSV Immunization Patients Un meghann 20 months Aged Out No longer eligible b ased on patient's age to complete this topic Varicella Vaccines Aged Out No longer eligible based on patient's age to complete this topic
--- OUTSIDE RECORDS SUMMARY | 2024-11-05 14:36 | XMS_ITS ---
Author Organization Micah Bellamy III, MD Address [address] [place] [address] [place] [id number] Care Team Providers Care International Account Representative Name Role Phone Micah Bellamy Primary Care Provider Allergies Allergen (clinical drug ingredient) Drug/Non Drug [...] AM > Referral Faxed with progress note, Janett Lloyd 10/24/2024 03:12:28 PM >Patient is scheduled [...] DAY Active Ketoconazole 2 % 1 application School Leader ally Twice a day 04/01/2024 Active Ondansetron [...] Date Provider Diagnosis Micah Bellamy III, MD [address] [place] [address] [place] [id number] 10/14/2024 Micah Bellamy Essential hypertensi on I10 [...] completed his radiation in October [address] [facility]. This value will be observed. 10/14/2024 [...] EVERY DAY Ketoconazole 2 % 1 application School Leader ally Twice a day 04/01/2024 Ondansetron 4 [...] Evaluate and Treat Large jatin on neck, George Bob Next Appt Details Follow Up: 3 Months, Reason: OV, Regular check-up and follow-up on mass removal Provider Name:Micah Bellamy, 02/14/2025 03:00:00 PM, [address] [place] [address] [address], [place], [phone], Provider Name:Micah Bellamy, 08/18/2025 03:30:00 PM, [address] [place] [address] [place], [phone], Progress Notes * Rosalino RICE TDOB:1955 ( 69 yo M)Acc No.[id number]:10/14/2024 Patient:?Rosalino RICE Provider:?Micah Bellamy MD :1955???Age:69 Y???Sex:Male Connor e:10/14/2024 Address:[address] [place] [address], [id number] Subjective: * Chief Complaints: * ???Prostate cancerHypertensi onCOPDHearing lossBenign prostatic hypertrophyObesitySebaceous cyst, neck * HPI: ???:? TO SALLY FOR NECK JATIN. ?Telehealth?Location of provider rendering services:?{...} [address] [facility] [address] ?Location of patient:?address listed in demographics for today's visit ?Patient identification confirmed using:?Name, ?Telehealth method:?Telephone only. Patient not visible to care provider. ?Consent:?Patient verbally consented to treatment, Patient verbally consented to billing insurance company, Patient informed of any privacy concerns related to method of visit ?Total time spent with patient (mins)?22 ?The patient, a 69-year-old male, reported feeling okay [...] is feeling generally well and is breathing comfortably.? He is not smoking.? His PSA is stable.It has improved from 1.41 to 1.06. * ROS:?General/Constitutional:?pain?only normal aches and pains.?Chills?denies.?Fatigue?admits.?Fever?denies.?ENT:?Decreased hearing?in both ears.?Respiratory:?Cough?denies.?Cardiovascular:?Chest pain with exertion?denies.?Dyspnea on exertion?denies.?Shortness of breath?denies.?Gastrointestinal:?Constipation?occasional.?Decreased appetite?denies.?Diarrhea?denies.?Heartburn?denies.?Nausea?denies.?Rectal bleeding?denies.?Vomiting?denies.?Hematology:?bruising?denies.?petechiae?denies.?Swollen glands?none have been noted.?Genitourinary:?Frequent urination?once a night.?Musculoskeletal:?Muscle aches?denies.?Painful joints?denies.?Sciatica?denies.?Weakness?denies.?Skin:?Itching?denies.?Rash?denies.?Skin lesion(s)?denies.?Neurologic:?Difficulty speaking?denies.?Dizziness?denies.?Headache?denies.?Low back pain?denies.?Psychiatric:?Depressed mood?denies.? * Medical History:? * Surgical History:?colonoscop y - tubular adenoma 2009colonoscopy 2012bilateral cataract extractions 1999Space OAR/ Gold seed placement, Prostate Ca 3Prostate Biopsy 05/2023No history * Hospitalization/Major Diagno stic Procedure:?No history * Family History:?Father: dece ased 62 yrs, myocardial infarction in operating room, diabetes mellitus, diagnosed with DM.?Mother: 67 yrs, breast cancer, diagnosed with Cancer.?1 brother(s) - healthy. .? He has no children. He is not aware of any family history of substance use disorder, addiction or mental illness. * Social History:?Tobacco Use:?Tobacco Use/Smoking?Patient is a?former smoker ?How long has it been since you last smoked??> 10 years ?Additional Findings: Tobacco Non-User?Ex-cigarette smoker ?Tobacco Control (Standard)?Tobacco use:?Former smoker ?How long has it been since you last smoked??Greater than 10 years ?Additional Findings: Tobacco non-user?Ex-cigarette smoker ???He is working. He has no children. He was born in [place], [place]. He is in a happy and secure relationship with his significant other, Perry Estevez {'Alcohol Consumption': 'No history of alcohol consumption'}. * Medications:?TakinghydrALAZI NE HCl 25 mg ab 1 tablet with [...] reviewed and reconciled with the patient * Allergies:?No Known Drug All ergyno[Allergies Verified] Objective: * Vitals:?Ht: 66, Wt:197, BMI: 31.79, Wt-k.36. * ???Past Orders: Lab:Complete Blood Count Aut o Diff * Collection Date 10/04/2024 08/07/2024 03/29/2024 Collection Time 11:50 AM 11:54 AM 12:18 PM Order Date 10/04/2024 08/07/2024 03/29/2024 White Blood Count 4.9 (Ref Range: 4.8-10.8 X10*3/uL) 5.6 (Ref Range: 4.8-10.8 X10*3/uL) 4.7?L (Ref Range: 4.8-10.8 X10*3/uL) Red Blood Count [...] Percent Auto 3.7 (Ref Range: 0-4 %) 5.9?H (Ref Range: 0-4 %) 3.2 (Ref Range: [...] (Ref Range: 0.0-1.0 mg/dL) Aspartate Amino Transferase 45?H (Ref Range: 5-37 U/L) 37 (Ref Range: 5-37 U/L) 31 (Ref Range: 5-37 U/L) Alanine Aminotransferase 53?H (Ref Range: 0-40 U/L) 49?H (Ref Range: 0-40 U/L) 47?H (Ref Range: 0-40 U/L) Total Protein 7.8 [...] mmol/L) 4.1 (Ref Range: 3.3-5.1 mmol/L) Chloride 111?H (Ref Range: 96-108 mmol/L) 108 (Ref Range: 96-108 mmol/L) 111?H (Ref Range: 96-108 mmol/L) Carbon Dioxide 26 (Ref Range: 22-29 mmol/L) 24 (Ref Range: 22-29 mmol/L) 24 (Ref Range: 22-29 mmol/L) Anion Gap 10?L (Ref Range: 12-20) 13 (Ref Range: 12-20) 12 (Ref Range: 12-20) Blood Urea Nitrogen 14 (Ref Range: 9-16 mg/dL) 13 (Ref Range: 9-16 mg/dL) 18?H (Ref Range: 9-16 mg/dL) Creatinine 0.98 (Ref [...] Time - 10/04/2024 11:50 AM)?ValueReference Range?Erythrocyte Sedimentation Usql15-18 - MM/HR ???Lab:URINE DIP STICK (Order Date - 08/14/2024) (Collection Date & Time - 08/14/2024)?ValueReference Range?SGNegative1.005 - 1.025?pH 5.05.0 - 9.0?LEUNegativeNegative -?NITNegativeNegative - ?APL89Pzizlvwf - Trace?GLUNegativeNegative -?KET1.025 Negative -?UBG0.20.1 - 1.8?BILNegative0.2 - 1.3?BLDNegative Negative -?MenstratingN/A * Lab:[facility] * Collection Date 08/07/2024 03/29/2024 11/22/2023 Collection Time 11:55 AM 12:18 PM 11:30 AM Order Date 08/07/2024 03/29/2024 11/22/2023 Sodium 142 (Ref Range: 135-145 mmol/L) 140 (Ref Range: 135-145 mmol/L) 140 (Ref Range: 135-145 mmol/L) Bilirubin Total 0.6 (Ref Range: 0.0-1.0 mg/dL) 0.8 (Ref Range: 0.0-1.0 mg/dL) 0.7 (Ref Range: 0.0-1.0 mg/dL) Aspartate Amino Transferase 57?H (Ref Range: 5-37 U/L) 41?H (Ref Range: 5-37 U/L) 41?H (Ref Range: 5-37 U/L) Alanine Aminotransferase 62?H (Ref Range: 0-40 U/L) 50?H (Ref Range: 0-40 U/L) 57?H (Ref Range: 0-40 U/L) Total Protein 8.1?H (Ref Range: 6.5-8.0 g/dL) 8.0 (Ref Range: [...] mmol/L) Chloride 108 (Ref Range: 96-108 mmol/L) 110?H (Ref Range: 96-108 mmol/L) 109?H (Ref Range: 96-108 mmol/L) Carbon Dioxide 26 (Ref Range: 22-29 mmol/L) 23 (Ref Range: 22-29 mmol/L) 26 (Ref Range: 22-29 mmol/L) Anion Gap 12 (Ref Range: 12-20) 11?L (Ref Range: 12-20) 9?L (Ref Range: 12-20) Blood Urea Nitrogen 13 (Ref Range: 9-16 mg/dL) 19?H (Ref Range: 9-16 mg/dL) 17?H (Ref Range: 9-16 mg/dL) Creatinine 1.09 (Ref [...] AM Order Date 08/07/2024 03/29/2024 11/22/2023 Triglycerides 214?H (Ref Range: <150 mg/dL) 141 (Ref Range: <150 mg/dL) 157?H (Ref Range: <150 mg/dL) Cholesterol 187 (Ref Range: <200 mg/dL) 203?H (Ref Range: <200 mg/dL) 188 (Ref Range: <200 mg/dL) LDL Cholesterol Calculated 113?H (Ref Range: <100 mg/dL) 141?H (Ref Range: <100 mg/dL) 124?H (Ref Range: <100 mg/dL) HDL Cholesterol 32?L (Ref Range: >40 mg/dL) 34?L (Ref Range: >40 mg/dL) 33?L (Ref Range: >40 mg/dL) Assessment: * Assessment: 1.?Prostate cancer - C61 (Pr imary)???Notes :His PSA has fallen to 1.06. He completed his radiation in October [address] [facility]. This value will be observed.???2.?Essential hypertension - I10???Notes :His blood pressure is stable. I recommended aggressive weight loss and sodium restriction.???3.?Obesity (BMI 30.0-34.9) - E66.9???Notes :He weighs 197 pounds.? His appetite is good.? We discussed his weight loss strategy.? We reviewed his diet and nutrition.? We made a plan to lose weight at a rate of one half of a pound per week.? He was encouraged to be physically active.???4.?Benign prostatic hyperplasia, unspecified whether lower urinary tract symptoms present - N40.0???Notes :He arises from sleep once or twice a night to urinate.? We have discussed lifestyle modifications he could make to reduce nocturia.? He remains under the care of urology.???5.?Former smoker - Z87.891???Notes :He is highly motivated not to smoke. We reviewed his plan to prevent relapse in times of stress and illness.???6.?Chronic obstructive pulmonary disease, unspecified - J44.9???Notes :He is breathing comfortably. He is moving air well without obstruction. He is no longer smoking.??? Plan: * Treatment: 2.?Obesity (BMI 30.0-34.9)?LAB: PROFILE, FASTING (COMPREHENSIVE METABOLIC) ?LAB: GGT ?LAB: PSA, TOTAL ?LAB: CBC WITH AUTO DIFF ?LAB: Lipid Panel 3.?Benign prostatic hyperpla mei, unspecified whether lower urinary tract symptoms present?LAB: GGT ?LAB: PSA, TOTAL 4.?Others? Continue amLODIPine Besylate Tablet, 10 MG, TAKE 1 TABLET BY MOUTH EVERY DAY.? Referral To:George Bob??General Surgery ?Reason:Evaluate and Treat Large jatin on neck * Procedure Codes:? * Preventive Medicine:? ??Counseling:?Care goal follow-up plan:?Counseling for abnormal BMI given?Yes ?Above Normal BMI Follow-up?Dietary management education, guidance, and counseling, Dietary needs education, Exercise promotion: strength training, Exercise promotion: stretching, Feeding regime, Giving encouragement to exercise, Lifestyle education regarding diet, Nutrition / feeding management, Nutrition therapy, Prescribed activity/exercise education, Prescribed diet education, Prescribed dietary intake, Special diet education, Weight monitoring , Intervention, Order not done: Medical or Other reason not done ?Smoking/Tobacco Use?Patient counseled on the dangers of tobacco use and urged to quit.?10/14/2024 ??COPD Care Plan:?Patient Lifestyle Goals?Relieve symptoms and improve quality of life, Reduce number of ED and hospitalizations, Be able to be more active with friends and family.?Treatment Goals?Eat a nutritious diet and increase water consumption to 6-8 glasses a day, Eat 4-5 small meals throughout the day.?Barriers?no barriers.?Self-Managment Goals?Get an air purifier for the rooms you are in the most, Eat a healthy diet, Exercise at least 3xs per week for at least 30 mins.? * Follow Up:?3 Months (Reason: OV, Regular check-up and follow-up on mass removal) * Images: * Sign off status: Completed true * Provider:?Micah Bellamy MD Date:?09/26 Generated for Sebastián remy/Taylor/[place] on:?11/05/2024 02:36 PM EST History and Physical Notes * HPI (History of Present Illness) Category Sub-Category Detail Notes [facility]...} [address] [id number] Location of patient:: address listed in demographics [...]
--- OUTSIDE RECORDS SUMMARY | 2024-11-05 14:36 | XMS_ITS ---
Author Organization Micah Bellamy III, MD Address [address] [place] [address] Care Team Providers Care Building Services Supervisor Name Role Phone Micah Bellamy Primary Care Provider Allergies Allergen (clinical drug ingredient) Drug/Non Drug Allergy documented on EMR Reaction Allergy Type Onset Date Status No Known Drug Allergy Unknown Drug Allergy Active Results Component Value Reference Range Notes URINE DIP STICK Reviewed date:08/14/2024 04:26:49 PM Interpretation: Performing Lab: Notes/Report: SG Negative 1.005 - 1.025 pH 5.0 5.0 - 9.0 MED Negative Negative - NIT Negative Negative - PRO 15 Negative - Trace GLU Negative Negative - KET 1.025 Negative - UBG 0.2 0.1 - 1.8 WALT Negative 0.2 - 1.3 BLD Negative Negative - Menstrating N/A REASON FOR VISIT Annual Exam Medications Medication SIG (Take, Route, Frequency, Duration) Notes Start Date End Date Status Ketoconazole 2 % 1 application Starting Sheet Tank Operator ally Twice a day 04/01/2024 Active Ondansetron 4 MG 1 tablet on the tong ue and allow to dissolve Orally every four hours prn nausea 07/09/2021 Active Sildenafil Citrate 20 MG 5 tablets Orall y once aday prn ED 06/27/2017 Active amLODIPine Besylate 10 MG TAKE 1 TABLET BY MOUTH EVERY DAY Active hydrALAZINE HCl 25 mg 1 tablet with food Orally Twice a day Active Ondansetron 4 MG 1 tablet on the tong ue and allow to dissolve Orally every four hours for nausea for 30 days 08/14/2024 Active Social History Tobacco Use: Social History [...] Additional Findings: Tobacco non-user Ex-cigaret te smoker AUDIT-C (Standard) Question Answer Notes Did you have a drink containing alcohol in the p ast year? No Points 0 Interpretation Negative Problems Problem Type SNOMED Code ICD Code Onset Dates Problem Status W/U Status Risk Notes Problem Major depression, single episode (78127645) Major depressive disorder, single episode, unspecified (F32.9) Active confirmed His depression remains in remission. Vital Signs Temperature 97.4 degrees Fahrenheit 08/14/20 24 Blood pressure systolic 143 mm Hg 08/14/20 24 Blood pressure diastolic 87 mm Hg 024 Heart Rate 86 /min 08/14/2024 Height 66 in 08/14/2024 Weight 194 lbs 08/14/2024 BMI 31.31 kg/m2 08/14/2024 Encounters Encounter Location Date Provider Diagnosis Micah Bellamy III, MD [address] [place] [address] [place] [address] 08/14/2024 Micah Bellamy Essential hypertensi on I10 ; Prostate cancer C61 ; Benign prostatic hyperplasia, unspecified whether lower urinary tract symptoms present N40.0 ; Obesity (BMI 30.0-34.9) E66.9 ; Former smoker Z87.891 ; Chronic obstructive pulmonary disease, unspecified J44.9 ; Sensorineural hearing loss (SNHL) of both ears H90.3 and Major depressive disorder, single episode, unspecified F32.9 Assessments Encounter Date Diagnosis (ICD Code) Assessment Notes Treat ment Notes Treatment Clinical Notes 08/14/2024 Essential hypertension (ICD-10 - I10) His blood pressure isSlightly elevated at 143/87.. I recommended aggressive weight loss and sodium restriction.He will return in the near future to have it rechecked. If necessary. His medications will be adjusted. 08/14/2024 Prostate cancer (ICD-10 - C61) His PSA has fallen to 1.41. He completed his radiation in October 2023 at [facility]. This value will be observed. 08/14/2024 Benign prostatic hyperplasia, unspecified whether lower urinary tract symptoms present (ICD-10 - N40.0) He ariises from sleep once a night to urinate. He has had no dysuria or hematuria. He remains under the care of urology for his prostate cancer. 08/14/2024 Obesity (BMI 30.0-34.9) (ICD-10 - E66.9) His body mass index is 1. His weight is unchanged. We reviewed his weight loss strategy and lipids. He will attempt to lose weight at a rate of one half of a pound per week. 08/14/2024 Former smoker (ICD-10 - Z87.891) He is highly motivated not to smoke. We reviewed his plan to prevent relapse in times of stress and illness. 08/14/2024 Chronic obstructive pulmonary disease, unspecified (ICD-10 - J44.9) He is breathing comfortably. He is moving air well without obstruction. He is no longer smoking. 08/14/2024 Sensorineural hearing loss (SNHL) of both ears (ICD-10 - H90.3) He is going to address this issue this summer. 08/14/2024 Major depressive disorder, single episode, unspecified (ICD-10 - F32.9) His depression remains in remission. Plan Of Treatment Medication Medication Name Sig Start Date Stop Date Notes Ketoconazole 2 % 1 application Starting Sheet Tank Operator ally Twice a day 04/01/2024 Ondansetron 4 MG 1 tablet on the tong ue and allow to dissolve Orally every four hours prn nausea 07/09/2021 Sildenafil Citrate 20 MG 5 tablets Orall y once aday prn ED 06/27/2017 amLODIPine Besylate 10 MG TAKE 1 TABLET BY MOUTH EVERY DAY hydrALAZINE HCl 25 mg 1 tablet with food Orally Twice a day Ondansetron 4 MG 1 tablet on the tong ue and allow to dissolve Orally every four hours for nausea for 30 days 08/14/2024 Pending Test Test Name Order Date PROFILE, RANDOM (COMPREHENSIVE METABOLIC ) 08/14/2024 GGT 08/14/2024 PSA, TOTAL 08/14/2024 SED RATE (ESR) 08/14/2024 CBC WITH AUTO DIFF 08/14/2024 Next Appt Details Follow Up: 2 Months, After C trevin, Reason: OV, Monitor liver function Provider Name:Micah Parisrne, 02/14/2025 03:00:00 PM, [address] [place], [place], [address], Provider Name:Micah Bellamy, 08/18/2025 03:30:00 PM, [address], [place], [address], Progress Notes * Rosalino RICE TDOB:1955 ( 69 yo M)Acc No.[id number]:08/14/2024 Progress Notes Patient:?MYRTLEROHINIAbram Rosalino T Provider:?Micah Bellamy MD :1955???Age:69 Y???Sex:Male Connor e:08/14/2024 Address:[address] [place] [id number] Subjective: * Chief Complaints: * ???Annual Exam * HPI: ???Depression Screening:?PHQ-9?Little interest or pleasure in doing things?Not at all ?Feeling down, depressed, or hopeless?Not at all ?Trouble falling or staying asleep, or sleeping too much?Not at all ?Feeling tired or having little energy?Not at all ?Poor appetite or overeating?Not at all ?Feeling bad about yourself or that you are a failure, or have let yourself or your family down?Not at all ?Trouble concentrating on things, such as reading the newspaper or watching television?Not at all ?Moving or speaking so slowly that other people could have noticed; or the opposite, being so fidgety or restless that you have been moving around a lot more than usual?Not at all ?Thoughts that you would be better off or of hurting yourself in some way?Not at all ?Total Score?0 ???COVID-19 Screening:?Questions?Have you experienced fever, chills, cough, sore throat, shortness of breath, difficulty breathing, muscle aches, loss of taste or smell??No ?Have you been exposed to the virus within the last 10 days??No ?Have you travelled internationally in the last 10 days??No ?Have you been exposed to COVID-19 in the past??No ???Fall Risk Screening:?Fall History?Have you had any falls with injury in the past year??No ?Have you had two or more falls in the past year??No ?Fall Risk Assessment:?No falls in the past year ???SDOH Questions:?SDOH Questions?In the past year have you been worried about losing your housing??No ?In the past year have you or any family members you live with been unable to get any of the following when it was really needed? Check all that apply:?Decline to answer ???:? The patient, a 69-year-old male, presented with concerns about his liver numbers. He reported no discomfort in the area where his liver is located. He also mentioned that his PSA (Prostate-Specific Antigen) levels have been fluctuating, with the most recent reading being 1.41. The patient has been on active surveillance and underwent radiation therapy in 2023 for prostate cancer. He reported a week-long episode of severe shaking and inability to keep food down, which occurred the Monday before . He also mentioned a past incident where he believed he might have cotton stuck in his ear, but upon examination, no foreign object was found. The patient also reported a change in his ejaculate, noticing small amounts of a clear liquid with occasional drops of blood. Blood Sugar Level is Normal. * ROS:?General/Constitutional:?pain?only normal aches and pains.?Chills?denies.?Fatigue?admits.?Fever?denies.?ENT:?Decreased hearing?in both ears.?Respiratory:?Cough?denies.?Cardiovascular:?Chest pain with exertion?denies.?Dyspnea on exertion?denies.?Shortness of breath?denies.?Gastrointestinal:?Constipation?admits.?Decreased appetite?denies.?Diarrhea?denies.?Heartburn?denies.?Nausea?denies.?Rectal bleeding?denies.?Vomiting?denies.?Hematology:?bruising?denies.?petechiae?denies.?Swollen glands?none have been noted.?Genitourinary:?Frequent urination?once a night.?Musculoskeletal:?Muscle aches?denies.?Painful joints?denies.?Sciatica?denies.?Weakness?denies.?Skin:?Itching?denies.?Rash?denies.?Skin lesion(s)?denies.?Neurologic:?Difficulty speaking?denies.?Dizziness?denies.?Headache?denies.?Low back pain?denies.?Psychiatric:?Depressed mood?denies.? * Medical History:? * Surgical History:?colonoscop y - tubular adenoma 2009colonoscopy 2012bilateral cataract extractions 2000Space OAR/ Gold seed placement, Prostate Ca 3Prostate [...] 10 years ?Additional Findings: Tobacco non-user?Ex-cigarette smoker ???Drugs/Alcohol:?Drugs?Have you used drugs other than those for medical reasons in the past 12 months??No ???Drug/Alcohol:?AUDIT-C (Standard)?Did you have a drink containing alcohol in the past year??No ?Points?0 ?Interpretation?Negative ???He is working. He has no children. He was born in [place], [place]. He is in a happy and secure relationship with his significant other, Perry Estevez {'Alcohol Consumption': 'No history of alcohol consumption'}. * Medications:?TakinghydrALAZI NE HCl 25 mg ab 1 tablet with food Orally Twice a day amLODIPine Besylate 10 MG Tablet TAKE 1 TABLET BY MOUTH EVERY DAY Sildenafil Citrate 20 MG Tablet 5 tablets Orally once aday prn ED Ondansetron 4 MG Tablet Disintegrating 1 tablet on the tongue and allow to dissolve Orally every four hours prn nausea Ketoconazole 2 % Cream 1 application Externally Twice a day Medication List reviewed and reconciled with the patientTaking hydrALAZINE HCl 25 mg ab 1 tablet with food Orally Twice a day Taking amLODIPine Besylate 10 MG Tablet TAKE 1 TABLET BY MOUTH EVERY DAY Taking Sildenafil Citrate 20 MG Tablet 5 tablets Orally once aday prn ED Taking Ondansetron 4 MG Tablet Disintegrating 1 tablet on the tongue and allow to dissolve Orally every four hours prn nausea Taking Ketoconazole 2 % Cream 1 application Externally Twice a day Medication List reviewed and reconciled with the patient * Allergies:?No Known Drug All ergyno[Allergies Verified] Objective: * Vitals:?Ht: 66, Wt:194, BMI: 31.31, BP:143/87, HR:86, Temp:97.4, Wt-k. * ???Past Orders: Lab:Complete Blood Count Aut o Diff * Collection Date 08/07/2024 03/29/2024 11/22/2023 Collection Time 11:54 AM 12:18 PM 11:30 AM Order Date 08/07/2024 03/29/2024 11/22/2023 White Blood Count 5.6 (Ref Range: 4.8-10.8 X10*3/uL) 4.7?L (Ref Range: 4.8-10.8 X10*3/uL) 4.5?L (Ref Range: 4.8-10.8 X10*3/uL) Red Blood Count 5.37 (Ref Range: 4.60-5.80 X10*6/uL) 5.31 (Ref Range: 4.60-5.80 X10*6/uL) 5.35 (Ref Range: 4.60-5.80 X10*6/uL) Hemoglobin 16.2 (Ref Range: 14.0-18.0 g/dl) 16.2 (Ref Range: 14.0-18.0 g/dl) 16.1 (Ref Range: 14.0-18.0 g/dl) Hematocrit 47.4 (Ref Range: 42.0-52.0 %) 46.9 (Ref Range: 42.0-52.0 %) 46.7 (Ref Range: 42.0-52.0 %) Mean Corpuscular Volume 88.3 (Ref Range: 80.0-98.0 fL) 88.3 (Ref Range: 80.0-98.0 fL) 87.3 (Ref Range: 80.0-98.0 fL) Mean Corpuscular Hemoglobin 30.2 (Ref Range: 27.0-33.0 pg) 30.5 (Ref Range: 27.0-33.0 pg) 30.1 (Ref Range: 27.0-33.0 pg) Mean Corpuscular HGB Conc 34.2 (Ref Range: 31.0-36.0 g/dl) 34.5 (Ref Range: 31.0-36.0 g/dl) 34.5 (Ref Range: 31.0-36.0 g/dl) Red Cell Distribution Width 14.4 (Ref Range: 11.0-16.0 %) 13.8 (Ref Range: 11.0-16.0 %) 14.7 (Ref Range: 11.0-16.0 %) Platelet Count 327 (Ref Range: 160-400 X10*3/uL) 281 (Ref Range: 160-400 X10*3/uL) 228 (Ref Range: 160-400 X10*3/uL) Mean Platelet Volume 9.4 (Ref Range: 9.4-12.4 fL) 9.8 (Ref Range: 9.4-12.4 fL) 9.6 (Ref Range: 9.4-12.4 fL) Neutrophils Percent Auto 50.0 (Ref Range: 45-73 %) 54.0 (Ref Range: 45-73 %) 59.1 (Ref Range: 45-73 %) Imm Gran Pct Auto 0.2 (Ref Range: 0.0-0.4 %) 0.2 (Ref Range: 0.0-0.4 %) 0.0 (Ref Range: 0.0-0.4 %) Lymphocytes Percent Auto 34.6 (Ref Range: 20-40 %) 31.0 (Ref Range: 20-40 %) 23.6 (Ref Range: 20-40 %) Monocytes Percent Auto 8.0 (Ref Range: 2-11 %) 10.7 (Ref Range: 2-11 %) 10.3 (Ref Range: 2-11 %) Eosinophils Percent Auto 5.9?H (Ref Range: 0-4 %) 3.2 (Ref Range: 0-4 %) 6.1?H (Ref Range: 0-4 %) Basophils Percent Auto 1.3 (Ref Range: 0-2 %) 0.9 (Ref Range: 0-2 %) 0.9 (Ref Range: 0-2 %) NRBC Pct Auto 0.0 (Ref Range: 0.0-0.2 /100WBC) 0.0 (Ref Range: 0.0-0.2 /100WBC) 0.0 (Ref Range: 0.0-0.2 /100WBC) Neutrophils Absolute Auto 2.8 (Ref Range: 2.0-8.3 x10*3/uL) 2.5 (Ref Range: 2.0-8.3 x10*3/uL) 2.6 (Ref Range: 2.0-8.3 x10*3/uL) Imm Gran Abs Auto 0.01 (Ref Range: 0.00-0.03 X10*3/uL) 0.01 (Ref Range: 0.00-0.03 X10*3/uL) 0.00 (Ref Range: 0.00-0.03 X10*3/uL) Lymphocytes Absolute Auto 1.9 (Ref Range: 1.2-4.9 X10*3/uL) 1.5 (Ref Range: 1.2-4.9 X10*3/uL) 1.1?L (Ref Range: 1.2-4.9 X10*3/uL) Monocytes Absolute Auto 0.5 (Ref Range: 0.1-1.2 X10*3/uL) 0.5 (Ref Range: 0.1-1.2 X10*3/uL) 0.5 (Ref Range: 0.1-1.2 X10*3/uL) Eosinophils Absolute Auto 0.3 (Ref Range: 0.0-0.4 X10*3/uL) 0.2 (Ref Range: 0.0-0.4 X10*3/uL) 0.3 (Ref Range: 0.0-0.4 X10*3/uL) Basophils Absolute Auto 0.1 (Ref Range: 0.0-0.2 X10*3/uL) 0.0 (Ref Range: 0.0-0.2 X10*3/uL) 0.0 (Ref Range: 0.0-0.2 X10*3/uL) NRBC Abs Auto 0.000 (Ref Range: 0.0-0.012 X10*3/uL) 0.000 (Ref Range: 0.0-0.012 X10*3/uL) 0.000 (Ref Range: 0.0-0.012 X10*3/uL) * Lab:Prostate Specific Antige n * Collection Date 08/07/2024 03/29/2024 11/22/2023 Collection Time 11:54 AM 12:18 PM 11:30 AM Order Date 08/07/2024 03/29/2024 11/22/2023 Prostate Specific Antigen 1.41 (Ref Range: <0.05-4.0 ng/mL) 1.41 (Ref Range: <0.05-4.0 ng/mL) 4.79?H (Ref Range: <0.05-4.0 ng/mL) * Lab:Lipid Panel * Collection Date 08/07/2024 [...] >40 mg/dL) 33?L (Ref Range: >40 mg/dL) * Lab:Comprehensive [place]. Glenny l Fast * Collection Date 08/07/2024 03/29/2024 11/22/2023 Collection Time 11:55 AM 12:18 PM 11:30 AM Order Date 08/07/2024 03/29/202411/2211/22/2023 Sodium 142 (Ref Range: 135-145 mmol/L) 140 [...] 8.4-10.2 mg/dL) 8.7 (Ref Range: 8.4-10.2 mg/dL) ???Lab:URINE DIP STICK (Order Date - 08/14/2024) (Collection Date & Time - 08/14/2024)?ValueReference Range?SGNegative1.005 - 1.025?pH 5.05.0 - 9.0?LEUNegativeNegative -?NITNegativeNegative - ?[id number] - Trace?GLUNegativeNegative -?KET1.025 Negative -?UBG0.20.1 - 1.8?BILNegative0.2 - 1.3?BLDNegative Negative -?MenstratingN/A * Examination: ???General Examination: ?GENERAL APPEARANCE:?pleasant, well nourished, well developed, in no acute distress, calm and relaxed, obese, man.?HEAD:?atraumatic, normocephalic.?EYES:?eomi, perrla, anicteric, conjugate.?EARS:?normal.?NOSE:?septum intact.?ORAL CAVITY:?normal, unremarkable.?NECK/THYROID:?no jugular venous distention, no carotid bruit, thyroid normal.?LYMPH NODES:?no enlarged lymph nodes,spleen normal.?SKIN:?no suspicious lesions, anicteric.?HEART:?no clicks, gallops, murmurs, or rubs, regular rhythm, S1, S2 normal, no s3, or vascular bruits.?LUNGS:?, diminished breath sounds throughout, good air movement, no wheezes, rales, rhonchi.?BREASTS:??no masses palpable bilaterally.?ABDOMEN:?bowel sounds normal, no ascites, no organomegaly, no mass, centripital obesity.?RECTAL EXAM:?not examined.?MUSCULOSKELETAL:?extremities unremarkable, no clubbing, cyanosis or edema.?PERIPHERAL PULSES:?normal.?NEUROLOGIC:?alert and oriented, cranial nerves 2-12 grossly intact, deep tendon reflexes 2+ symmetrical, motor strength normal upper and lower extremities, sensory exam intact.?PSYCH:?alert, oriented.? : ???{'Liver Enzyme Levels':'Slightly elevated', 'Ear Examination': 'No foreign object found', 'White Blood Cell Count': 'Normal', 'Cholesterol Levels': 'Good', 'Triglycerides': 'Slightly elevated', 'Kidney Function': 'Perfect', 'Blood Sugar Levels': 'Good'}. ??? Assessment: * Assessment: 1.?Prostate cancer - C61 (Pr imary)???Notes :His PSA has fallen to 1.41. He completed his radiation in October 2023 at [facility]. This value will be observed.???2.?Essential hypertension - I10???Notes :His blood pressure isSlightly elevated at 143/87.. I recommended aggressive weight loss and sodium restriction.He will return in the near future to have it rechecked.? If necessary.? His medications will be adjusted.???3.?Benign prostatic hyperplasia, unspecified whether lower urinary tract symptoms present - N40.0???Notes :He ariises from sleep once a night to urinate.? He has had no dysuria or hematuria.? He remains under the care of urology for his prostate cancer.???4.?Obesity (BMI 30.0-34.9) - E66.9???Notes :His body mass index is 1.? His weight is unchanged.? We reviewed his weight loss strategy and lipids.? He will attempt to lose weight at a rate of one half of a pound per week.???5.?Former smoker - Z87.891???Notes :He is highly motivated not to smoke. We reviewed his plan to prevent relapse in times of stress and illness.???6.?Chronic obstructive pulmonary disease, unspecified - J44.9???Notes :He is breathing comfortably. He is moving air well without obstruction. He is no longer smoking.???7.?Sensorineural hearing loss (SNHL) of both ears - H90.3???Notes :He is going to address this issue this summer.???8.?Major depressive disorder, single episode, unspecified - F32.9???Notes :His depression remains in remission.??? Plan: * Treatment: 2.?Benign prostatic hyperpla mei, unspecified whether lower urinary tract symptoms present?LAB: PROFILE, RANDOM (COMPREHENSIVE METABOLIC) ?LAB: GGT ?LAB: PSA, TOTAL ?LAB: SED RATE (ESR) ?LAB: CBC WITH AUTO DIFF 3.?Obesity (BMI 30.0-34.9)?LAB: PROFILE, RANDOM (COMPREHENSIVE METABOLIC) ?LAB: GGT ?LAB: PSA, TOTAL ?LAB: SED RATE (ESR) ?LAB: CBC WITH AUTO DIFF 4.?Others? Continue amLODIPine Besylate Tablet, 10 MG, TAKE 1 TABLET BY MOUTH EVERY DAY.?? * Labs:? * ?Lab: URINE DIP STICK (C ollection Date & Time - 08/14/2024) ? Value Reference Range ?SG Negative 1.005 - 1.025 * ?pH 5.0 5.0 - 9.0 * ?MED Negative Negative - * ?NIT Negative Negative - * ?PRO 15 Negative - Trac e * ?GLU Negative Negative - * ?KET 1.025 Negative - * ?UBG 0.2 0.1 - 1.8 * ?WALT Negative 0.2 - 1.3 * ?BLD Negative Negative - * ?Menstrating N/A * Procedure Codes:?32624 URINE -NO MICRO * Preventive Medicine:? ??Counseling:?Care goal follow-up plan:?Counseling [...] dangers of tobacco use and urged to quit.?08/14/2024 ??COPD Care Plan:?Patient Lifestyle Goals?Be able to be more active with friends and family, Reduce number of ED and hospitalizations, Relieve symptoms and improve quality of life.?Treatment Goals?Eat a nutritious diet and increase water consumption to 6-8 glasses a day, Exercise to help whole body, including lungs.?Barriers?no barriers.?Self-Managment Goals?Eat a healthy diet.? * Follow Up:?2 Months, After C hristmas (Reason: OV, Monitor liver function) * Images: * Sign off status: Completed true * Provider:?Micah Bellamy MD Date:?07/27 Generated for Gai sandrita/Taylor/eTransmitting on:?11/05/2024 02:36 PM EST History and Physical Notes * HPI (History of Present Illness) Category Sub-Category Detail Notes Depression Screening PHQ-9 Little inte rest or pleasure in doing things: Not at all Feeling down, depressed, or hopeless: No t at all Trouble falling or staying asleep, or sl eeping too much: Not at all Feeling tired or having little energy: N ot at all Poor appetite or overeating: Not at all Feeling bad about yourself o r that you are a failure, or have let yourself or your family down: Not at all Trouble concentrating on thi ngs, such as reading the newspaper or watching television: Not at all Moving or speaking so slowly that other people could have noticed; or the opposite, being so fidgety or restless that you have been moving around a lot more than usual: Not at all Thoughts that you would be b rachel off or of hurting yourself in some way: Not at all Total Score: 0 Fall Risk Screening Fall History Have you had any falls with injury in the past year?: No Have you had two or more falls in the year?: No Fall Risk Assessment:: No falls in the year COVID-19 Screening Questions Have you had any new onset fever, chills, cough, congestion, sore throat, shortness of breath, muscle aches?: No Have you been exposed to the virus withi n the last 10 days?: No Have you travelled internationally in last 10 days?: No Have you been exposed to COVID-19 in the past?: No SDOH Questions SDOH Questions In the past year have you been worried about losing your housing?: No In the past year have you or any family members you live with been unable to get any of the following when it was really needed? Check all that apply:: Decline to answer Examination Category Sub-Category Detail Notes General Examination GENERAL APPEARANCE: pleasant , well nourished, well developed, in no acute distress, calm and relaxed, obese, man HEAD: atraumatic, normocep halic EYES: eomi, perrla, anicte jeff, conjugate EARS: normal NOSE: septum intact NECK/THYROID: no jugular venous di stention, no carotid bruit, thyroid normal HEART: no clicks, gallops, murmurs, or rubs, regular rhythm, S1, S2 normal, no s3, or vascular bruits LUNGS: , diminished breath sounds throughout, good air movement, no wheezes, rales, rhonchi ABDOMEN: bowel sounds normal, no ascites, no organomegaly, no mass, centripital obesity NEUROLOGIC: alert and oriented, cranial nerves 2-12 grossly intact, deep tendon reflexes 2+ symmetrical, motor strength normal upper and lower extremities, sensory exam intact SKIN: no suspicious lesion s, anicteric PERIPHERAL PULSES: normal BREASTS: no masses palpable b ilaterally MUSCULOSKELETAL: extremities unremark able, no clubbing, cyanosis or edema LYMPH NODES: no enlarged lymph no nic,spleen normal RECTAL EXAM: not examined PSYCH: alert, oriented ORAL CAVITY: normal, unremarkable
--- OUTSIDE RECORDS SUMMARY | 2024-11-05 14:37 | XMS_ITS ---
Author Organization Micah Bellamy III, MD Address [address] [place] [address] Care Team Providers Care Associate Biological Sales Name Role Phone Micah Bellamy Primary Care Provider Allergies Allergen (clinical drug ingredient) Drug/Non Drug Allergy documented on EMR Reaction Allergy Type Onset Date Status No Known Drug Allergy Unknown Drug Allergy Active REASON FOR VISIT Prostate cancer, Hypertension, COPD, Hearing loss, Obesity, Benign prosthetic hypertrophy Medications Medication SIG (Take, Route, Frequency, Duration) Notes Start Date End Date Status Ketoconazole 2 % 1 application Animal Husbandry Technician ally Twice a day 04/01/2024 Active Ondansetron [...] Additional Findings: Tobacco Non-User Ex-cigaret te smoker Vital Signs Temperature 98.1 degrees Fahrenheit 05/31/20 24 Blood pressure systolic 133 mm Hg 05/31/20 24 Blood pressure diastolic 84 mm Hg 024 Heart Rate 67 /min 05/31/2024 Height 66 in 05/31/2024 Weight 194 lbs 05/31/2024 BMI 31.31 kg/m2 05/31/2024 Encounters Encounter Location Date Provider Diagnosis Micah Bellamy III, MD [address] [place] [address] [address] [place], [place] [address] 05/31/2024 Micah Bellamy Essential hypertensi on I10 ; Prostate cancer C61 ; Obesity (BMI 30.0-34.9) E66.9 ; Former smoker Z87.891 ; Benign prostatic hyperplasia, unspecified whether lower urinary tract symptoms present N40.0 and Chronic obstructive pulmonary disease, unspecified J44.9 Assessments Encounter Date Diagnosis (ICD Code) Assessment Notes Treatment Notes Treatment Clinical Notes 05/31/2024 Essential hypertension (ICD-10 - I10) His blood pressure is stable. I recommended aggressive weight loss and sodium restriction. 05/31/2024 Prostate cancer (ICD-10 - C61) His PSA has fallen to 1.41. He completed his radiation in October [address] [facility]. This value will be observed. 05/31/2024 Obesity (BMI 30.0-34.9) (ICD-10 - E66.9) His body mass index remains in the obese range. I have discussed weight loss strategies with him. We reviewed his diet and nutrition. We made a plan to lose weight at a rate of one half of a pound per week. 05/31/2024 Former smoker (ICD-10 - Z87.891) He is highly motivated not to smoke. We reviewed his plan to prevent relapse in times of stress and illness. 05/31/2024 Benign prostatic hyperplasia, unspecified whether lower urinary tract symptoms present (ICD-10 - N40.0) He is rising from sleep once a night to urinate. I reviewed lifestyle modification with him as a way of improving this. 05/31/2024 Chronic obstructive pulmonary disease, unspecified (ICD-10 - J44.9) He is breathing comfortably. He is moving air well without obstruction. He is no longer smoking. Plan Of Treatment Medication Medication Name Sig Start Date Stop Date Notes Ketoconazole 2 % 1 application Animal Husbandry Technician ally Twice a day 04/01/2024 Ondansetron 4 [...] Order Date PROFILE, FASTING (COMPREHENSIVE METABOLI C) 05/31/2024 PSA, TOTAL 05/31/2024 CBC WITH AUTO DIFF 05/31/2024 Lipid Panel 05/31/2024 Next Appt Details Follow Up: As Scheduled, [place] son: OV, Annual Exam Provider Name:Micah Bellamy, 02/14/2025 03:00:00 PM, [address] [place] [address] [address], [place], [address], Provider Name:Micah Bellamy, 08/18/2025 03:30:00 PM, [address] [place] [address] [address], [place], [address], Progress Notes * ZAFARRosalino Valverde TDOB:1955 ( 69 yo M)Acc No.[id number]:05/31/2024 Progress Notes Patient:?Rosalino Naik T Provider:?Micah Bellamy MD :1955???Age:69 Y???Sex:Male Connor e:05/31/2024 Address:[address] [place] [id number] Subjective: * Chief Complaints: * ???Prostate cancerHypertensi onCOPDHearing lossObesityBenign prosthetic hypertrophy * HPI: ???COVID-19 Screening:? He returns for medical management. He has had radiation at [facility] for prostate cancer. His PSA is 1.41 and will be observed. He will see his urologist, Dr. Velasco, next July. He notes that he is slightly short of breath with prolonged physical exertion but otherwise is comfortable. He is trying to lose weight and consume a healthy diet. ?Questions?Have you experienced fever, chills, cough, sore throat, shortness of breath, difficulty breathing, muscle aches, loss of taste or smell??No ?Have you been exposed to the virus within the last 10 days??No ?Have you travelled internationally in the last 10 days??No ?Have you been exposed to COVID-19 in the past??No * ROS:?General/Constitutional:?pain?only normal aches and pains.?Chills?denies.?Fatigue?admits.?Fever?denies.?ENT:?Decreased hearing?in both ears.?Respiratory:?Cough?denies.?Cardiovascular:?Chest pain with exertion?denies.?Dyspnea on exertion?denies.?Shortness of breath?denies.?Gastrointestinal:?Constipation?occasional.?Decreased appetite?denies.?Diarrhea?denies.?Heartburn?denies.?Nausea?denies.?Rectal bleeding?denies.?Vomiting?denies.?Hematology:?bruising?denies.?petechiae?denies.?Swollen glands?none have been noted.?Genitourinary:?Frequent urination?once a night.?Musculoskeletal:?Muscle aches?denies.?Painful joints?denies.?Sciatica?denies.?Weakness?denies.?Skin:?Itching?denies.?Rash?denies.?Skin lesion(s)?denies.?Neurologic:?Difficulty speaking?denies.?Dizziness?denies.?Headache?denies.?Low back pain?denies.?Psychiatric:?Depressed mood?denies.? * Medical History:? * Surgical History:?colonoscop y - tubular adenoma 2009colonoscopy 2012bilateral cataract extractions 1999Space OAR/ Gold seed placement, Prostate Ca rostate Biopsy 05/2023 * Hospitalization/Major Diagno stic Procedure:?Denies Past Hospitalization * Family History:?Father: dece ased 62 yrs, [...] 10 years ?Additional Findings: Tobacco Non-User?Ex-cigarette smoker ???He is working. He has no children. He was born in [place], [place]. He is in a happy and secure relationship with his significant other, Perry Herb * Medications:?TakinghydrALAZI NE HCl 25 mg ab 1 tablet with food Orally Twice a dayamLODIPine Besylate 10 MG Tablet TAKE 1 TABLET BY MOUTH EVERY DAY Sildenafil Citrate 20 MG Tablet 5 tablets Orally once aday prn EDOndansetron 4 MG Tablet Disintegrating 1 tablet on the tongue and allow to dissolve Orally every four hours prn nauseaKetoconazole 2 % Cream 1 application Externally Twice a day, stop date 10/13/2024Medication List reviewed and reconciled with the patientTaking hydrALAZINE HCl 25 mg ab 1 tablet with food Orally Twice a dayTaking amLODIPine Besylate 10 MG Tablet TAKE 1 TABLET BY MOUTH EVERY DAY Taking Sildenafil Citrate 20 MG Tablet 5 tablets Orally once aday prn EDTaking Ondansetron 4 MG Tablet Disintegrating 1 tablet on the tongue and allow to dissolve Orally every four hours prn nauseaTaking Ketoconazole 2 % Cream 1 application Externally Twice a day, stop date 10/13/2024Medication List reviewed and reconciled with the patient * Allergies:?No Known Drug All ergyno[Allergies Verified] Objective: * Vitals:?Ht: 66, Wt:194, BMI: 31.31, BP:133/84, HR:67, Temp:98.1, Wt-k. * ???Past Orders: Lab:Lipid Panel * Order Date 03/29/2024 11/22/2023 04/07/2023 Triglycerides 141 (Ref Range: <150 mg/dL) 157?H (Ref Range: <150 mg/dL) 163 (Ref Range: mg/dL) Cholesterol 203?H (Ref Range: <200 mg/dL) 188 (Ref Range: <200 mg/dL) 196 (Ref Range: mg/dL) LDL Cholesterol Calculated 141?H (Ref Range: <100 mg/dL) 124?H (Ref Range: <100 mg/dL) 128 (Ref Range: mg/dl) HDL Cholesterol 34?L (Ref Range: >40 mg/dL) 33?L (Ref Range: >40 mg/dL) 36 (Ref Range: mg/dL) * Lab:Comprehensive [facility] * Order Date 03/29/2024 11/22/2023 04/07/2023 Sodium 140 (Ref Range: 135-145 mmol/L) 140 (Ref Range: 135-145 mmol/L) 142 (Ref Range: 135-145 mmol/L) Bilirubin Total 0.8 (Ref Range: 0.0-1.0 mg/dL) 0.7 (Ref Range: 0.0-1.0 mg/dL) 0.9 (Ref Range: 0.0-1.0 mg/dL) Aspartate Amino Transferase 41?H (Ref Range: 5-37 U/L) 41?H (Ref Range: 5-37 U/L) 49?H (Ref Range: 5-37 U/L) Alanine Aminotransferase 50?H (Ref Range: 0-40 U/L) 57?H (Ref Range: 0-40 U/L) 62?H (Ref Range: 0-40 U/L) Total Protein 8.0 (Ref Range: 6.5-8.0 g/dL) 7.8 (Ref Range: 6.5-8.0 g/dL) 8.0 (Ref Range: 6.5-8.0 g/dL) Albumin Level 4.5 (Ref Range: 3.5-5.0 g/dL) 4.3 (Ref Range: 3.5-5.0 g/dL) 4.7 (Ref Range: 3.5-5.0 g/dL) Alkaline Phosphatase 54 (Ref Range: 39-117 U/L) 58 (Ref Range: 39-117 U/L) 51 (Ref Range: 39-117 U/L) Potassium 4.2 (Ref Range: 3.3-5.1 mmol/L) 3.7 (Ref Range: 3.3-5.1 mmol/L) 4.3 (Ref Range: 3.3-5.1 mmol/L) Chloride 110?H (Ref Range: 96-108 mmol/L) 109?H (Ref Range: 96-108 mmol/L) 109?H (Ref Range: 96-108 mmol/L) Carbon Dioxide 23 (Ref Range: 22-29 mmol/L) 26 (Ref Range: 22-29 mmol/L) 25 (Ref Range: 22-29 mmol/L) Anion Gap 11?L (Ref Range: 12-20) 9?L (Ref Range: 12-20) 12 (Ref Range: 12-20) Blood Urea Nitrogen 19?H (Ref Range: 9-16 mg/dL) 17?H (Ref Range: 9-16 mg/dL) 16 (Ref Range: 9-16 mg/dL) Creatinine 1.02 (Ref Range: 0.5-1.4 mg/dL) 0.86 (Ref Range: 0.5-1.4 mg/dL) 1.09 (Ref Range: 0.5-1.4 mg/dL) Estimated Glomerular Filt Rate > 60 > 60 > 60 Glucose Fasting 89 (Ref Range: 60-99 mg/dL) 91 (Ref Range: 60-99 mg/dL) 92 (Ref Range: 60-99 mg/dL) Calcium 9.3 (Ref Range: 8.4-10.2 mg/dL) 8.7 (Ref Range: 8.4-10.2 mg/dL) 9.3 (Ref Range: 8.4-10.2 mg/dL) * Lab:Complete Blood Count Aut o Diff * Order Date 03/29/2024 11/22/2023 04/07/2023 White Blood Count 4.7?L (Ref Range: 4.8-10.8 X10*3/uL) 4.5?L (Ref Range: 4.8-10.8 X10*3/uL) 6.3 (Ref Range: 4.8-10.8 X10*3/uL) Red Blood Count 5.31 (Ref Range: 4.60-5.80 X10*6/uL) 5.35 (Ref Range: 4.60-5.80 X10*6/uL) 5.46 (Ref Range: 4.60-5.80 X10*6/uL) Hemoglobin 16.2 (Ref Range: 14.0-18.0 g/dl) 16.1 (Ref Range: 14.0-18.0 g/dl) 16.2 (Ref Range: 14.0-18.0 g/dl) Hematocrit 46.9 (Ref Range: 42.0-52.0 %) 46.7 (Ref Range: 42.0-52.0 %) 47.8 (Ref Range: 42.0-52.0 %) Mean Corpuscular Volume 88.3 (Ref Range: 80.0-98.0 fL) 87.3 (Ref Range: 80.0-98.0 fL) 87.5 (Ref Range: 80.0-98.0 fL) Mean Corpuscular Hemoglobin 30.5 (Ref Range: 27.0-33.0 pg) 30.1 (Ref Range: 27.0-33.0 pg) 29.7 (Ref Range: 27.0-33.0 pg) Mean Corpuscular HGB Conc 34.5 (Ref Range: 31.0-36.0 g/dl) 34.5 (Ref Range: 31.0-36.0 g/dl) 33.9 (Ref Range: 31.0-36.0 g/dl) Red Cell Distribution Width 13.8 (Ref Range: 11.0-16.0 %) 14.7 (Ref Range: 11.0-16.0 %) 14.0 (Ref Range: 11.0-16.0 %) Platelet Count 281 (Ref Range: 160-400 X10*3/uL) 228 (Ref Range: 160-400 X10*3/uL) 293 (Ref Range: 160-400 X10*3/uL) Mean Platelet Volume 9.8 (Ref Range: 9.4-12.4 fL) 9.6 (Ref Range: 9.4-12.4 fL) 10.3 (Ref Range: 9.4-12.4 fL) Neutrophils Percent Auto 54.0 (Ref Range: 45-73 %) 59.1 (Ref Range: 45-73 %) 53.6 (Ref Range: 45-73 %) Imm Gran Pct Auto 0.2 (Ref Range: 0.0-0.4 %) 0.0 (Ref Range: 0.0-0.4 %) 0.3 (Ref Range: 0.0-0.4 %) Lymphocytes Percent Auto 31.0 (Ref Range: 20-40 %) 23.6 (Ref Range: 20-40 %) 35.4 (Ref Range: 20-40 %) Monocytes Percent Auto 10.7 (Ref Range: 2-11 %) 10.3 (Ref Range: 2-11 %) 8.3 (Ref Range: 2-11 %) Eosinophils Percent Auto 3.2 (Ref Range: 0-4 %) 6.1?H (Ref Range: 0-4 %) 1.9 (Ref Range: 0-4 %) Basophils Percent Auto 0.9 (Ref Range: 0-2 %) 0.9 (Ref Range: 0-2 %) 0.5 (Ref Range: 0-2 %) NRBC Pct Auto 0.0 (Ref Range: 0.0-0.2 /100WBC) 0.0 (Ref Range: 0.0-0.2 /100WBC) 0.0 (Ref Range: 0.0-0.2 /100WBC) Neutrophils Absolute Auto 2.5 (Ref Range: 2.0-8.3 x10*3/uL) 2.6 (Ref Range: 2.0-8.3 x10*3/uL) 3.4 (Ref Range: 2.0-8.3 x10*3/uL) Imm Gran Abs Auto 0.01 (Ref Range: 0.00-0.03 X10*3/uL) 0.00 (Ref Range: 0.00-0.03 X10*3/uL) 0.02 (Ref Range: 0.00-0.03 X10*3/uL) Lymphocytes Absolute Auto 1.5 (Ref Range: 1.2-4.9 X10*3/uL) 1.1?L (Ref Range: 1.2-4.9 X10*3/uL) 2.2 (Ref Range: 1.2-4.9 X10*3/uL) Monocytes Absolute Auto 0.5 (Ref Range: 0.1-1.2 X10*3/uL) 0.5 (Ref Range: 0.1-1.2 X10*3/uL) 0.5 (Ref Range: 0.1-1.2 X10*3/uL) Eosinophils Absolute Auto 0.2 (Ref Range: 0.0-0.4 X10*3/uL) 0.3 (Ref Range: 0.0-0.4 X10*3/uL) 0.1 (Ref Range: 0.0-0.4 X10*3/uL) Basophils Absolute Auto 0.0 (Ref Range: 0.0-0.2 X10*3/uL) 0.0 (Ref Range: 0.0-0.2 X10*3/uL) 0.0 (Ref Range: 0.0-0.2 X10*3/uL) NRBC Abs Auto 0.000 (Ref Range: 0.0-0.012 X10*3/uL) 0.000 (Ref Range: 0.0-0.012 X10*3/uL) 0.000 (Ref Range: 0.0-0.012 X10*3/uL) * Lab:Prostate Specific Antige n * Order Date 03/29/2024 11/22/2023 04/07/2023 Prostate Specific Antigen 1.41 (Ref Range: <0.05-4.0 ng/mL) 4.79?H (Ref Range: <0.05-4.0 ng/mL) 8.60?H (Ref Range: <0.05-4.0 ng/mL) * Examination: ???General Examination: ?GENERAL APPEARANCE:?pleasant, well nourished, well developed, in no acute distress, calm and relaxed , obese , man.?HEAD:?atraumatic, normocephalic.?EYES:?eomi, perrla, anicteric, conjugate.?EARS:?normal.?NOSE:?septum intact.?ORAL CAVITY:?normal, unremarkable.?NECK/THYROID:?no jugular venous distention, no carotid bruit, thyroid normal.?LYMPH NODES:?no enlarged lymph nodes,spleen normal.?SKIN:?no suspicious lesions, anicteric.?HEART:?no clicks, gallops, murmurs, or rubs, regular rhythm, S1, S2 normal, no s3, or vascular bruits.?LUNGS:?, diminished breath sounds throughout , no wheezes, rales, rhonchi , good air movement.?BREASTS:??no masses palpable bilaterally.?ABDOMEN:?bowel sounds normal, no ascites, no organomegaly, no mass , centripital obesity.?RECTAL EXAM:?not examined.?MUSCULOSKELETAL:?extremities unremarkable, no clubbing, cyanosis or edema.?PERIPHERAL PULSES:?normal.?NEUROLOGIC:?alert and oriented, cranial nerves 2-12 grossly intact, deep tendon reflexes 2+ symmetrical, motor strength normal upper and lower extremities, sensory exam intact.?PSYCH:?alert, oriented.? Assessment: * Assessment: 1.?Essential hypertension - I10 (Primary), His blood pressure is stable. I recommended aggressive weight loss and sodium restriction.?2.?Prostate cancer - C61, His PSA has fallen to 1.41. He completed his radiation in October [address] [facility]. This value will be observed.?3.?Obesity (BMI 30.0-34.9) - E66.9, His body mass index remains in the obese range. I have discussed weight loss strategies with him. We reviewed his diet and nutrition. We made a plan to lose weight at a rate of one half of a pound per week.?4.?Former smoker - Z87.891, He is highly motivated not to smoke. We reviewed his plan to prevent relapse in times of stress and illness.?5.?Benign prostatic hyperplasia, unspecified whether lower urinary tract symptoms present - N40.0, He is rising from sleep once a night to urinate. I reviewed lifestyle modification with him as a way of improving this.?6.?Chronic obstructive pulmonary disease, unspecified - J44.9, He is breathing comfortably. He is moving air well without obstruction. He is no longer smoking.? Plan: * Treatment: 2.?Prostate cancer?LAB: PROFILE, FASTING (COMPREHENSIVE METABOLIC) ?LAB: PSA, TOTAL ?LAB: CBC WITH AUTO DIFF ?LAB: Lipid Panel 3.?Obesity (BMI 30.0-34.9)?LAB: PROFILE, FASTING (COMPREHENSIVE METABOLIC) ?LAB: PSA, TOTAL ?LAB: CBC WITH AUTO DIFF ?LAB: Lipid Panel 4.?Others? Continue amLODIPine Besylate Tablet, 10 MG, TAKE 1 TABLET BY MOUTH EVERY DAY.?? * Procedure Codes:? * Preventive Medicine:? ??Counseling:?Care [...] dangers of tobacco use and urged to quit.?05/31/2024 ??COPD Care Plan:?Patient Lifestyle Goals?Reduce number of ED and hospitalizations, Relieve symptoms and improve quality of life, Be able to be more active with friends and family.?Treatment Goals?Exercise to help whole body, including lungs, Eat a nutritious diet and increase water consumption to 6-8 glasses a day.?Barriers?no barriers.?Self-Managment Goals?Get an air purifier for the rooms you are in the most, Eat a healthy diet.? * Follow Up:?As Scheduled ([place] son: OV, Annual Exam) * Images: * Sign off status: Completed true * Provider:?Micah Bellamy MD Date:?02/2024 Generated for Sebastián remy/[place] on:?11/05/2024 02:36 PM EST History and Physical Notes * HPI (History of Present Illness) Category Sub-Category Detail Notes COVID-19 Screening Questions Have you had any new onset fever, chills, cough, congestion, sore throat, shortness of breath, muscle aches?: No Have you been exposed to the virus withi n the last 10 days?: No Have you travelled internationally in e last 10 days?: No Have you been exposed to COVID-19 in the past?: No Examination Category Sub-Category Detail Notes General Examination GENERAL APPEARANCE: pleasant , well nourished, well developed, in no acute distress, calm and relaxed , obese , man HEAD: atraumatic, normocep halic EYES: eomi, perrla, anicte jeff, conjugate EARS: normal NOSE: septum intact NECK/THYROID: no jugular venous di stention, no carotid bruit, thyroid normal HEART: no clicks, gallops, murmurs, or rubs, regular rhythm, S1, S2 normal, no s3, or vascular bruits LUNGS: , diminished breath sounds throughout , no wheezes, rales, rhonchi , good air movement ABDOMEN: bowel sounds normal, no ascites, no organomegaly, no mass , centripital obesity NEUROLOGIC: alert and oriented, cranial [...]
--- OUTSIDE RECORDS SUMMARY | 2024-11-05 14:37 | XMS_ITS | Patient Health Record ---
Author Organization Micah Bellamy III, MD Address [address] [place] [address] Care Team Providers [employer] Associate Name Role Phone Micah Bellamy Primary Care Provider [phone] Allergies Allergen (clinical drug ingredient) Drug/Non Drug [...] 1.3 BLD Negative Negative - Menstrating N/A Complete Blood Count Auto Di ff Reviewed date:11/23/2023 05:49:15 AM Interpretation: Performing Lab:[facility], [address] [place] [phone] Notes/Report: White Blood Count 4.5 4.8-10.8 X10*3/uL Red Blood Count 5.35 4.60-5.80 X10*6/uL Hemoglobin 16.1 14.0-18.0 g/dl Hematocrit 46.7 42.0-52.0 % Mean Corpuscular Volume 87.3 80.0-98.0 fL Mean Corpuscular Hemoglobin 30.1 27.0-33.0 pg Mean Corpuscular HGB Conc 34.5 31.0-36.0 g/dl Red Cell Distribution Width 14.7 11.0-16.0 % Platelet Count 228 160-400 X10*3/uL Mean Platelet Volume 9.6 9.4-12.4 fL Neutrophils Percent Auto 59.1 45-73 % Imm Gran Pct Auto 0.0 0.0-0.4 % Lymphocytes Percent Auto 23.6 20-40 % Monocytes Percent Auto 10.3 2-11 % Eosinophils Percent Auto 6.1 0-4 % Basophils Percent Auto 0.9 0-2 % NRBC Pct Auto 0.0 0.0-0.2 /100WBC Neutrophils Absolute Auto 2.6 2.0-8.3 x10*3/u L Imm Gran Abs Auto 0.00 0.00-0.03 X10*3/uL Lymphocytes Absolute Auto 1.1 1.2-4.9 X10*3/u L Monocytes Absolute Auto 0.5 0.1-1.2 X10*3/uL Eosinophils Absolute Auto 0.3 0.0-0.4 X10*3/u L Basophils Absolute Auto 0.0 0.0-0.2 X10*3/uL NRBC Abs Auto 0.000 0.0-0.012 X10*3/uL Comprehensive [place]. Panel Fa st Reviewed date:11/23/2023 05:49:15 AM Interpretation: Performing Lab:[facility], [address] [place] [phone] Notes/Report: Sodium 140 135-145 mmol/L Potassium 3.7 3.3-5.1 mmol/L Chloride 109 96-108 mmol/L Carbon Dioxide 26 22-29 mmol/L Anion Gap 9 12-20 Blood Urea Nitrogen 17 9-16 mg/dL Creatinine 0.86 0.5-1.4 mg/dL Estimated Glomerular Filt Rate > 60 NOTE: For -Peruvian individuals, multiply the result by 1.210. Chronic Kidney Disease: Estimated GFR < 60 mL/min/1.73m2 Severe Kidney Disease: Estimated GFR < 15 mL/min/1.73m2 Glucose Fasting 91 60-99 mg/dL Calcium 8.7 8.4-10.2 mg/dL Bilirubin Total 0.7 0.0-1.0 mg/dL Aspartate Amino Transferase 41 5-37 U/L Alanine Aminotransferase 57 0-40 U/L Total Protein 7.8 6.5-8.0 g/dL Albumin Level 4.3 3.5-5.0 g/dL Alkaline Phosphatase 58 39-117 U/L Gamma Glutamyl Transpeptidas e Reviewed date:11/23/2023 05:49:15 AM Interpretation: Performing Lab:[facility], [address] [place] [phone] Notes/Report: Gamma Glutamyl Transpeptidase 32 11-51 U/L Lipid Panel Reviewed date:11/23/2023 05:49:15 AM Interpretation: Performing Lab:[facility], [address] [place] [phone] Notes/Report: Triglycerides 157 <150 mg/dL Desirable Triglyceride: less than 150 mg/dL Borderline High Triglyceride 150-199 mg/dL High Triglyceride: 200-499 mg/dL Very High Triglyceride: greater than or equal to 5OO mg/dL Cholesterol 188 <200 mg/dL Desirable Cholesterol: less than 200 mg/dL Borderline High Cholesterol: 200-239 mg/dL High Cholesterol: greater than 239 mg/dL LDL Cholesterol Calculated 124 <100 mg/dL Desirable LDL: less than 100 mg/dL Near Optimal/Above Optimal LDL: 110-129 mg/dL Borderline High LDL: 130-159 mg/dL High LDL: 160-189 mg/dL Very High LDL: greater than or equal to 190 mg/dL HDL Cholesterol 33 >40 mg/dL Desirable HDL: greater than 40 mg/dL Note: This HDL assay may give artificially low results in patients with liver disease. Prostate Specific Antigen Reviewed date:11/23/2023 05:49:15 AM Interpretation: Performing Lab:[facility], [address] [place] [phone] Notes/Report: Prostate Specific Antigen 4.79 <0.05-4.0 ng/mL PSA methodology: Parry Alinity i Chemiluminescent Microparticle Immunoassay (CMIA) Complete Blood Count Auto Di ff Reviewed date:03/30/2024 06:39:20 AM Interpretation: Performing Lab:[address] [phone] Notes/Report: White Blood Count 4.7 4.8-10.8 X10*3/uL Red Blood Count 5.31 4.60-5.80 X10*6/uL Hemoglobin 16.2 14.0-18.0 g/dl Hematocrit 46.9 42.0-52.0 % Mean Corpuscular Volume 88.3 80.0-98.0 fL Mean Corpuscular Hemoglobin 30.5 27.0-33.0 pg Mean Corpuscular HGB Conc 34.5 31.0-36.0 g/dl Red Cell Distribution Width 13.8 11.0-16.0 % Platelet Count 281 160-400 X10*3/uL Mean Platelet Volume 9.8 9.4-12.4 fL Neutrophils Percent Auto 54.0 45-73 % Imm Gran Pct Auto 0.2 0.0-0.4 % Lymphocytes Percent Auto 31.0 20-40 % Monocytes Percent Auto 10.7 2-11 % Eosinophils Percent Auto 3.2 0-4 % Basophils Percent Auto 0.9 0-2 % NRBC Pct Auto 0.0 0.0-0.2 /100WBC Neutrophils Absolute Auto 2.5 2.0-8.3 x10*3/u L Imm Gran Abs Auto 0.01 0.00-0.03 X10*3/uL Lymphocytes Absolute Auto 1.5 1.2-4.9 X10*3/u L Monocytes Absolute Auto 0.5 0.1-1.2 X10*3/uL Eosinophils Absolute Auto 0.2 0.0-0.4 X10*3/u L Basophils Absolute Auto 0.0 0.0-0.2 X10*3/uL NRBC Abs Auto 0.000 0.0-0.012 X10*3/uL Comprehensive [place]. Panel Fa st Reviewed date:03/30/2024 06:39:20 AM Interpretation: Performing Lab:[facility], [address] [place] [phone] Notes/Report: Sodium 140 135-145 mmol/L Potassium 4.2 3.3-5.1 mmol/L Chloride 110 96-108 mmol/L Carbon Dioxide 23 22-29 mmol/L Anion Gap 11 12-20 Blood Urea Nitrogen 19 9-16 mg/dL Creatinine 1.02 0.5-1.4 mg/dL Estimated Glomerular Filt Rate > 60 NOTE: For -[place]uvian individuals, multiply the result by 1.210. Chronic Kidney Disease: Estimated GFR < 60 mL/min/1.73m2 Severe Kidney Disease: Estimated GFR < 15 mL/min/1.73m2 Glucose Fasting 89 60-99 mg/dL Calcium 9.3 8.4-10.2 mg/dL Bilirubin Total 0.8 0.0-1.0 mg/dL Aspartate Amino Transferase 41 5-37 U/L Alanine Aminotransferase 50 0-40 U/L Total Protein 8.0 6.5-8.0 g/dL Albumin Level 4.5 3.5-5.0 g/dL Alkaline Phosphatase 54 39-117 U/L Lipid Panel Reviewed date:03/30/2024 06:39:20 AM Interpretation: Performing Lab:[facility], [address] [place] [phone] Notes/Report: Triglycerides 141 <150 mg/dL Desirable Triglyceride: less than 150 mg/dL Borderline High Triglyceride 150-199 mg/dL High Triglyceride: 200-499 mg/dL Very High Triglyceride: greater than or equal to 5OO mg/dL Cholesterol 203 <200 mg/dL Desirable Cholesterol: less than 200 mg/dL Borderline High Cholesterol: 200-239 mg/dL High Cholesterol: greater than 239 mg/dL LDL Cholesterol Calculated 141 <100 mg/dL Desirable LDL: less than 100 mg/dL Near Optimal/Above Optimal LDL: 110-129 mg/dL Borderline High LDL: 130-159 mg/dL High LDL: 160-189 mg/dL Very High LDL: greater than or equal to 190 mg/dL HDL Cholesterol 34 >40 mg/dL Desirable HDL: greater than 40 mg/dL Note: This HDL assay may give artificially low results in patients with liver disease. Prostate Specific Antigen Reviewed date:03/30/2024 06:39:20 AM Interpretation: Performing Lab:[facility], [address] [place] [phone] Notes/Report: Prostate Specific Antigen 1.41 <0.05-4.0 ng/mL PSA methodology: Parry Alinity i Chemiluminescent Microparticle Immunoassay (CMIA) Complete Blood Count Auto Di ff Reviewed date:08/08/2024 09:49:01 AM Interpretation: Performing Lab:[facility], [address] [place] [phone] Notes/Report: White Blood Count 5.6 4.8-10.8 X10*3/uL Red Blood Count 5.37 4.60-5.80 X10*6/uL Hemoglobin 16.2 14.0-18.0 g/dl Hematocrit 47.4 42.0-52.0 % Mean Corpuscular Volume 88.3 80.0-98.0 fL Mean Corpuscular Hemoglobin 30.2 27.0-33.0 pg Mean Corpuscular HGB Conc 34.2 31.0-36.0 g/dl Red Cell Distribution Width 14.4 11.0-16.0 % Platelet Count 327 160-400 X10*3/uL Mean Platelet Volume 9.4 9.4-12.4 fL Neutrophils Percent Auto 50.0 45-73 % Imm Gran Pct Auto 0.2 0.0-0.4 % Lymphocytes Percent Auto 34.6 20-40 % Monocytes Percent Auto 8.0 2-11 % Eosinophils Percent Auto 5.9 0-4 % Basophils Percent Auto 1.3 0-2 % NRBC Pct Auto 0.0 0.0-0.2 /100WBC Neutrophils Absolute Auto 2.8 2.0-8.3 x10*3/u L Imm Gran Abs Auto 0.01 0.00-0.03 X10*3/uL Lymphocytes Absolute Auto 1.9 1.2-4.9 X10*3/u L Monocytes Absolute Auto 0.5 0.1-1.2 X10*3/uL Eosinophils Absolute Auto 0.3 0.0-0.4 X10*3/u L Basophils Absolute Auto 0.1 0.0-0.2 X10*3/uL NRBC Abs Auto 0.000 0.0-0.012 X10*3/uL Comprehensive [place]. Panel Fa st Reviewed date:08/08/2024 09:49:01 AM Interpretation: Performing Lab:[facility], [address] [place] [phone] Notes/Report: Sodium 142 135-145 mmol/L Potassium 4.1 3.3-5.1 mmol/L Chloride 108 96-108 mmol/L Carbon Dioxide 26 22-29 mmol/L Anion Gap 12 12-20 Blood Urea Nitrogen 13 9-16 mg/dL Creatinine 1.09 0.5-1.4 mg/dL Estimated Glomerular Filt Rate > 60 Chronic Kidney Disease: Estimated GFR < 60 mL/min/1.73m2 Severe Kidney Disease: Estimated GFR < 15 mL/min/1.73m2 Glucose Fasting 91 60-99 mg/dL Calcium 9.3 8.4-10.2 mg/dL Bilirubin Total 0.6 0.0-1.0 mg/dL Aspartate Amino Transferase 57 5-37 U/L Alanine Aminotransferase 62 0-40 U/L Total Protein 8.1 6.5-8.0 g/dL Albumin Level 4.5 3.5-5.0 g/dL Alkaline Phosphatase 59 39-117 U/L Lipid Panel Reviewed date:08/08/2024 09:49:01 AM Interpretation: Performing Lab:[facility], [address] [place] [phone] Notes/Report: Triglycerides 214 <150 mg/dL Desirable Triglyceride: less than 150 mg/dL Borderline High Triglyceride 150-199 mg/dL High Triglyceride: 200-499 mg/dL Very High Triglyceride: greater than or equal to 5OO mg/dL Cholesterol 187 <200 mg/dL Desirable Cholesterol: less than 200 mg/dL Borderline High Cholesterol: 200-239 mg/dL High Cholesterol: greater than 239 mg/dL LDL Cholesterol Calculated 113 <100 mg/dL Desirable LDL: less than 100 mg/dL Near Optimal/Above Optimal LDL: 110-129 mg/dL Borderline High LDL: 130-159 mg/dL High LDL: 160-189 mg/dL Very High LDL: greater than or equal to 190 mg/dL HDL Cholesterol 32 >40 mg/dL Desirable HDL: greater than 40 mg/dL Note: This HDL assay may give artificially low results in patients with liver disease. Prostate Specific Antigen Reviewed date:08/08/2024 09:49:01 AM Interpretation: Performing Lab:[facility], [address] [place] [phone] Notes/Report: Prostate Specific Antigen 1.41 <0.05-4.0 ng/mL PSA methodology: Parry Alinity i Chemiluminescent Microparticle Immunoassay (CMIA) Complete Blood Count Auto Di ff Reviewed date:10/05/2024 08:38:35 PM Interpretation: Performing Lab:[facility], [address] [place] [phone] Notes/Report: White Blood Count 4.9 4.8-10.8 X10*3/uL Red Blood Count 5.36 4.60-5.80 X10*6/uL Hemoglobin 16.6 14.0-18.0 g/dl Hematocrit 47.2 42.0-52.0 % Mean Corpuscular Volume 88.1 80.0-98.0 fL Mean Corpuscular Hemoglobin 31.0 27.0-33.0 pg Mean Corpuscular HGB Conc 35.2 31.0-36.0 g/dl Red Cell Distribution Width 14.4 11.0-16.0 % Platelet Count 286 160-400 X10*3/uL Mean Platelet Volume 9.4 9.4-12.4 fL Neutrophils Percent Auto 53.6 45-73 % Imm Gran Pct Auto 0.4 0.0-0.4 % Lymphocytes Percent Auto 30.5 20-40 % Monocytes Percent Auto 11.0 2-11 % Eosinophils Percent Auto 3.7 0-4 % Basophils Percent Auto 0.8 0-2 % NRBC Pct Auto 0.0 0.0-0.2 /100WBC Neutrophils Absolute Auto 2.6 2.0-8.3 x10*3/u L Imm Gran Abs Auto 0.02 0.00-0.03 X10*3/uL Lymphocytes Absolute Auto 1.5 1.2-4.9 X10*3/u L Monocytes Absolute Auto 0.5 0.1-1.2 X10*3/uL Eosinophils Absolute Auto 0.2 0.0-0.4 X10*3/u L Basophils Absolute Auto 0.0 0.0-0.2 X10*3/uL NRBC Abs Auto 0.000 0.0-0.012 X10*3/uL Erythrocyte Sedimentation Ra te Reviewed date:10/05/2024 08:38:35 PM Interpretation: Performing Lab:[facility], [address] [place] [phone] Notes/Report: Erythrocyte Sedimentation Rate 2 0-15 MM/HR Patients with polycythemia and many hemoglobin abnormalities may have depressed sed rates whereas patients with anemia may have elevated sed rates. Comprehensive Met. Panel Reviewed date:10/05/2024 08:38:35 PM Interpretation: Performing Lab:[facility], [address] [place] [phone] Notes/Report: Sodium 143 135-145 mmol/L Potassium 4.0 3.3-5.1 mmol/L Chloride 111 96-108 mmol/L Carbon Dioxide 26 22-29 mmol/L Anion Gap 10 12-20 Blood Urea Nitrogen 14 9-16 mg/dL Creatinine 0.98 0.5-1.4 mg/dL Estimated Glomerular Filt Rate > 60 Chronic Kidney Disease: Estimated GFR < 60 mL/min/1.73m2 Severe Kidney Disease: Estimated GFR < 15 mL/min/1.73m2 Glucose Random 91 60-115 mg/dL Calcium 8.6 8.4-10.2 mg/dL Bilirubin Total 0.4 0.0-1.0 mg/dL Aspartate Amino Transferase 45 5-37 U/L Alanine Aminotransferase 53 0-40 U/L Total Protein 7.8 6.5-8.0 g/dL Albumin Level 4.3 3.5-5.0 g/dL Alkaline Phosphatase 54 39-117 U/L Gamma Glutamyl Transpeptidas e Reviewed date:10/05/2024 08:38:35 PM Interpretation: Performing Lab:[address] [phone] Notes/Report: Gamma Glutamyl Transpeptidase 28 11-51 U/L Prostate Specific Antigen Reviewed date:10/05/2024 08:38:35 PM Interpretation: Performing Lab:[address] [phone] Notes/Report: Prostate Specific Antigen 1.06 <0.05-4.0 ng/mL PSA methodology: Parry Alinity i Chemiluminescent Microparticle Immunoassay (CMIA) Reason For Referral Reason Evaluate and Treat Large cara on neck Diagnosis 1 Cara (L72.0) Referral Organization Micah Bellamy III, MD Referring Provider First Name Micah Referring Provider Last Name Mia Referring Provider Speciality Internal M edicine Referred Provider George Bob Referred Provider Specialty General Surg bev General Notes Janett Lloyd 10/16/2024 09:35:37 AM > Referral Faxed with progress notePrema Amber 10/24/2024 03:12:28 PM >Patient is scheduled for 11/05/24 @ 2[address] with Dr[address] Bob Referral Priority Routine Referral Appointment Date 11/05/2024 Medications Medication SIG (Take, Route, Frequency, Duration) Notes Start Date End Date Status amLODIPine Besylate 10 MG TAKE 1 TABLET BY MOUTH EVERY DAY Active Ketoconazole 2 % 1 application Voucher Clerk ally Twice a day 04/01/2024 Active Ondansetron 4 MG 1 tablet on the tong ue and allow to dissolve Orally every four hours for nausea 08/14/2024 Active Ondansetron 4 MG 1 tablet on the tong ue and allow to dissolve Orally every four hours prn nausea 07/09/2021 Active hydrALAZINE HCl 25 mg 1 tablet with food Orally Twice a day Active Sildenafil Citrate 20 MG 5 tablets Orall y once aday prn ED 06/27/2017 Active Immunizations Vaccine Route Administration Date Status Comme nts Influenza IM Intramuscular 10/11/2012 Administered Pneumococcal IM Intramuscular 07/10/2013 Administered Influenza IM Intramuscular 07/31/2013 Administered Influenza Unknown 07/08/2014 Administered COVID- 19 Vaccine Unknown 12/28/2020 Administered 1st P fizer COVID- 19 Vaccine Unknown 01/19/2021 Administered 2nd P fizer COVID- 19 Vaccine Unknown 07/28/2021 Administered Boost er shot Influenza, quad Unknown 06/09/2021 Administered SHINGRIX Unknown 02/07/2022 Administered COVID PFIZER Unknown 12/28/2020 Administered COVID PFIZER Unknown 07/28/2021 Administered COVID PFIZER Unknown 01/19/2021 Administered COVID PFIZER Unknown 01/16/2022 Administered Influenza, quad Unknown 06/03/2018 Administered PCV20 Unknown 03/12/2022 Administered COMIRNATY Pfizer-BioNTech Unknown 06/24/2023 Administered Influenza, quad Unknown 06/24/2023 Administered Tdap Unknown 05/05/2024 Administered Influenza, quad Unknown 05/05/2024 Administered COMIRNATY Pfizer-BioNTech Unknown 05/26/2024 Administered Social History Tobacco Use: Social History Observation [...] Problem Status W/U Status Risk Notes Problem 6822093 Former smoker (Z87.891) Active confirmed He is highly motivated not to smoke. We reviewed his plan to prevent relapse in times of stress and illness. Problem [id number] Obesity (BMI 30.0-34.9) (E66.9) Active confirmed He weighs 197 pounds. His appetite is good. We discussed his weight loss strategy. We reviewed his diet and nutrition. We made a plan to lose weight at a rate of one half of a pound per week. He was encouraged to be physically active. Problem 176605370 Prostate cancer (C61) Active confirmed His PSA has fallen to 1.06. He completed his radiation in October [address] [facility]. This value will be observed. Problem Major depression, single episode (13063143) Major depressive disorder, single episode, unspecified (F32.9) Active confirmed His depression remains in remission. Problem 586306280 Chronic obstructive pulmonary disease, unspecified (J44.9) Active confirmed He is breathing comfortably. He is moving air well without obstruction. He is no longer smoking. Problem 01439897 Calculus of gallbladder without cholecystitis without obstruction (K80.20) Active confirmed He is asymptomatic and will be observed. Problem 50793007 Essential hypertension (I10) Active confirmed His blood pressure is stable. I recommended aggressive weight loss and sodium restriction. Problem 92830573 Age-related nuclear cataract of both eyes (H25.13) Active confirmed He is quite happy with the results of his surgery. No change in his regimen as needed. Problem Benign prostatic hypertrophy without outflow obstruction (616100458) Benign prostatic hyperplasia, unspecified whether lower urinary tract symptoms present (N40.0) Active confirmed He arises fr om sleep once or twice a night to urinate. We have discussed lifestyle modifications he could make to reduce nocturia. He remains under the care of urology. Problem [id number] Sensorineural hearing loss (SNHL) of both ears (H90.3) Active confirmed He is going to address this issue this summer. Vital Signs Heart Rate 86 /min 08/14/2024 Temperature 97.4 degrees Fahrenheit 08/14/2024 Blood pressure diastolic 87 mm Hg 08/14/2024 Height 66 in 10/14/2024 Blood pressure systolic 143 mm Hg 08/14/2024 Weight 197 lbs 10/14/2024 BMI 31.79 kg/m2 10/14/2024 Encounters Encounter Location Date Provider Diagnosis Micah Bellamy III, MD [address] [place] [address] [place] [phone] 11/27/2023 Micah Bellamy Essential hypertensi on I10 ; Chronic obstructive pulmonary disease, unspecified J44.9 ; Calculus of gallbladder without cholecystitis without obstruction K80.20 ; Former smoker Z87.891 ; Prostate cancer C61 and Obesity (BMI 30.0-34.9) E66.9 Micah Bellamy III, MD [address] [place] [address] [place] [phone] 04/01/2024 Micah Bellamy Essential hypertensi on I10 ; Chronic obstructive pulmonary disease, unspecified J44.9 ; Former smoker Z87.891 ; Obesity (BMI 30.0-34.9) E66.9 ; Dysgeusia R43.2 and Prostate cancer C61 Micah Bellamy III, MD [address] [place] [address] [place] [phone] 05/31/2024 Micah Bellamy Essential hypertensi on I10 ; Prostate cancer C61 ; Obesity (BMI 30.0-34.9) E66.9 ; Former smoker Z87.891 ; Benign prostatic hyperplasia, unspecified whether lower urinary tract symptoms present N40.0 and Chronic obstructive pulmonary disease, unspecified J44.9 Micah Bellamy III, MD [address] [place] [address] [place] [address] 08/14/2024 Micah Bellamy Essential hypertensi on I10 ; Prostate cancer C61 ; Benign prostatic hyperplasia, unspecified whether lower urinary tract symptoms present N40.0 ; Obesity (BMI 30.0-34.9) E66.9 ; Former smoker Z87.891 ; Chronic obstructive pulmonary disease, unspecified J44.9 ; Sensorineural hearing loss (SNHL) of both ears H90.3 and Major depressive disorder, single episode, unspecified F32.9 Micah Bellamy III, MD [address] [place] [address] [place] [address] 10/14/2024 Micah Bellamy Essential hypertensi on I10 ; Prostate cancer C61 ; Obesity (BMI 30.0-34.9) E66.9 ; Benign prostatic hyperplasia, unspecified whether lower urinary tract symptoms present N40.0 ; Former smoker Z87.891 and Chronic obstructive pulmonary disease, unspecified J44.9 Micah Bellamy III, MD [address] [place] [address] [place] [phone] 11/09/2023 Micah Bellamy III, MD [address] [place] [address] [place] [address] 12/22/2023 Micah Bellamy Essential hypertensi on I10 Micah Bellamy III, MD [address] [place] [address] [place] [address] 01/13/2024 Micah Bellamy III, MD [address] [place] [address] [place] [address] 05/01/2024 Micah Bellamy Assessments Encounter Date Diagnosis (ICD Code) Assessment Notes Treat ment Notes Treatment Clinical Notes 11/27/2023 Chronic obstructive pulmonary disease, unspecified (ICD-10 - J44.9) He is no longer smoking and he is trying to lose weight. I recommended exercise. He will try to lose weight as well. 11/27/2023 Essential hypertension (ICD-10 - I10) His blood pressure is stable. I recommended aggressive weight loss and sodium restriction. 04/01/2024 Chronic obstructive pulmonary disease, unspecified (ICD-10 - J44.9) He is breathing comfortably. He is moving air well without obstruction. He is no longer smoking. 04/01/2024 Essential hypertension (ICD-10 - I10) His blood pressure is stable. I recommended aggressive weight loss and sodium restriction. 05/31/2024 Prostate cancer (ICD-10 - C61) His PSA has fallen to 1.41. He completed his radiation in October [address] [facility]. This value will be observed. 05/31/2024 Essential hypertension (ICD-10 - I10) His blood pressure is stable. I recommended aggressive weight loss and sodium restriction. 08/14/2024 Prostate cancer (ICD-10 - C61) His PSA has fallen to 1.41. He completed his radiation in October [address] [facility]. This value will be observed. 08/14/2024 Essential hypertension (ICD-10 - I10) His blood pressure isSlightly elevated at 143/87.. I recommended aggressive weight loss and sodium restriction.He will return in the near future to have it rechecked. If necessary. His medications will be adjusted. 10/14/2024 Prostate cancer (ICD-10 - C61) His PSA has fallen to 1.06. He completed his radiation in October [address] [facility]. This value will be observed. 10/14/2024 Essential hypertension (ICD-10 - I10) His blood pressure is stable. I recommended aggressive weight loss and sodium restriction. 12/22/2023 Essential hypertension (ICD-10 - I10) His blood pressure is stable. I recommended aggressive weight loss and sodium restriction. 11/27/2023 Calculus of gallbladder without cholecystitis without obstruction (ICD-10 - K80.20) He is asymptomatic and will be observed. 04/01/2024 Former smoker (ICD-10 - Z87.891) He is highly motivated not to smoke. We reviewed his plan to prevent relapse in times of stress and illness. 05/31/2024 Obesity (BMI 30.0-34.9) (ICD-10 - E66.9) His body mass index remains in the obese range. I have discussed weight loss strategies with him. We reviewed his diet and nutrition. We made a plan to lose weight at a rate of one half of a pound per week. 08/14/2024 Benign prostatic hyperplasia, unspecified whether lower urinary tract symptoms present (ICD-10 - N40.0) He ariises from sleep once a night to urinate. He has had no dysuria or hematuria. He remains under the care of urology for his prostate cancer. 10/14/2024 Obesity (BMI 30.0-34.9) (ICD-10 - E66.9) He weighs 197 pounds. His appetite is good. We discussed his weight loss strategy. We reviewed his diet and nutrition. We made a plan to lose weight at a rate of one half of a pound per week. He was encouraged to be physically active. 11/27/2023 Former smoker (ICD-10 - Z87.891) He is highly motivated not to smoke. We reviewed his plan to prevent relapse in times of stress and illness. 04/01/2024 Obesity (BMI 30.0-34.9) (ICD-10 - E66.9) He lost 5 pounds. His weight is in the obese range. I recommended weight loss at a rate of one half of a pound per week through a diet restricted in fat calories and sodium combined with regular physical activity 05/31/2024 Former smoker (ICD-10 - Z87.891) He is highly motivated not to smoke. We reviewed his plan to prevent relapse in times of stress and illness. 08/14/2024 Obesity (BMI 30.0-34.9) (ICD-10 - E66.9) His body mass index is 1. His weight is unchanged. We reviewed his weight loss strategy and lipids. He will attempt to lose weight at a rate of one half of a pound per week. 10/14/2024 Benign prostatic hyperplasia, unspecified whether lower urinary tract symptoms present (ICD-10 - N40.0) He arises from sleep once or twice a night to urinate. We have discussed lifestyle modifications he could make to reduce nocturia. He remains under the care of urology. 11/27/2023 Prostate cancer (ICD-10 - C61) His PSA has fallen from 8.6 down to 4.79. His treatment records will be requested to evaluate this.. He has an appointment with the urologist next week. Current therapy was continued. 04/01/2024 Dysgeusia (ICD-10 - R43.2) He has stopped taking terbinafine. I have substituted ketoconazole for the extensive right groin. Tinea infection. 05/31/2024 Benign prostatic hyperplasia, unspecified whether lower urinary tract symptoms present (ICD-10 - N40.0) He is rising from sleep once a night to urinate. I reviewed lifestyle modification with him as a way of improving this. 08/14/2024 Former smoker (ICD-10 - Z87.891) He is highly motivated not to smoke. We reviewed his plan to prevent relapse in times of stress and illness. 10/14/2024 Former smoker (ICD-10 - Z87.891) He is highly motivated not to smoke. We reviewed his plan to prevent relapse in times of stress and illness. 11/27/2023 Obesity (BMI 30.0-34.9) (ICD-10 - E66.9) His weight is stable at the obese range. I recommended weight loss at a rate of one half of a pound per week through a diet restricted in fat calories and sodium combined with regular physical activity 04/01/2024 Prostate cancer (ICD-10 - C61) His PSA has fallen from 8.6 down to 1.41. His treatment records will be requested to evaluate this.. He has an appointment with the urologist next week. Current therapy was continued. 05/31/2024 Chronic obstructive pulmonary disease, unspecified (ICD-10 - J44.9) He is breathing comfortably. He is moving air well without obstruction. He is no longer smoking. 08/14/2024 Chronic obstructive pulmonary disease, unspecified (ICD-10 - J44.9) He is breathing comfortably. He is moving air well without obstruction. He is no longer smoking. 10/14/2024 Chronic obstructive pulmonary disease, unspecified (ICD-10 - J44.9) He is breathing comfortably. He is moving air well without obstruction. He is no longer smoking. 08/14/2024 Sensorineural hearing loss (SNHL) of both ears (ICD-10 - H90.3) He is going to address this issue this summer. 08/14/2024 Major depressive disorder, single episode, unspecified (ICD-10 - F32.9) His depression remains in remission. Plan Of Treatment Pending Test Test Name Order Date PROFILE, FASTING (COMPREHENSIVE METABOLI C) 01/09/2023 PROFILE, FASTING (COMPREHENSIVE METABOLI C) 10/14/2024 PROFILE, FASTING (COMPREHENSIVE METABOLI C) 12/15/2021 PROFILE, FASTING (COMPREHENSIVE METABOLI C) 05/31/2024 PROFILE, FASTING (COMPREHENSIVE METABOLI C) 12/09/2022 PROFILE, FASTING (COMPREHENSIVE METABOLI C) 11/27/2023 PROFILE, FASTING (COMPREHENSIVE METABOLI C) 08/23/2022 PROFILE, FASTING (COMPREHENSIVE METABOLI C) 04/11/2023 PROFILE, RANDOM (COMPREHENSIVE METABOLIC ) 03/18/2022 PROFILE, RANDOM (COMPREHENSIVE METABOLIC ) 08/14/2024 LIPID PANEL 08/23/2022 LIPID PANEL 04/11/2023 LIPID PANEL 01/09/2023 GGT 04/11/2023 GGT 10/14/2024 GGT 08/14/2024 PSA, TOTAL 11/27/2023 PSA, TOTAL 08/23/2022 PSA, TOTAL 04/11/2023 PSA, TOTAL 03/18/2022 PSA, TOTAL 01/09/2023 PSA, TOTAL 10/14/2024 PSA, TOTAL 08/14/2024 PSA, TOTAL 12/15/2021 PSA, TOTAL 05/31/2024 PSA, TOTAL 12/09/2022 CBC w DIFF 12/09/2022 CBC w DIFF 11/27/2023 CBC w DIFF 08/23/2022 CBC w DIFF 04/11/2023 CBC w DIFF 03/18/2022 CBC w DIFF 01/09/2023 CBC w DIFF 12/15/2021 SED RATE (ESR) 08/14/2024 Echocardiogram 11/25/2015 PFT with DLCO 12/15/2015 CBC WITH AUTO DIFF 05/31/2024 CBC WITH AUTO DIFF 08/14/2024 CBC WITH AUTO DIFF 10/14/2024 Lipid Panel 10/14/2024 Lipid Panel 12/15/2021 Lipid Panel 05/31/2024 Lipid Panel 11/27/2023 Next Appt Details Provider Name:Micah Bellamy, 02/14/2025 03:00:00 PM, [address] [place] [address] [address], [place], [address], Provider Name:Micah Mia, 08/18/2025 03:30:00 PM, [address] [place] [address] [address], [place], [address], Insurance Providers Payer Name Payer Address Payer Phone Subscriber Number Group Number Insured Name Patient Relationship to Insured Coverage Start Date Coverage End Date MEDICARE NGS [address] [place] [phone] [id number] Rosalino Naik Self - patient is the insured [employer] [address] [place] [address] [phone] [id number] Rosalino Naik Self - patient is the insured Medical (General) History Medical History History ICD Code pulmonary nodule OA right shoulder and knee chronic obstructive pulmonary disease (C OPD) gallstones pancreatitis 2007 epididymitis 2003 former smoker bilateral cataracts {'Prostate Cancer': 'Underwent radiation therapy in 2023'} Surgical History Surgery Date(Month/Year) colonoscopy - tubular adenoma 2008 colonoscopy 2011 bilateral cataract extractions 1999 Space OAR/ Gold seed placement, Prostate Ca 08/2023 Prostate Biopsy 05/2023 No history Hospitalization History Reason Date(Month/Year) No history
== END 2024-11-05 14:07 | disposition home or self-care (01) ==
PROVIDERS: PCP Internal Medicine Medical Oncology; Referring Provider Internal Medicine Medical Oncology; Visit Provider Surgery
DX: L72.0 Epidermal cyst (principal)
CPT/HCPCS: 11423; 99204

== ENCOUNTER 2024-11-05 13:30 | Outpatient (REF) | payer MEDICARE, SELFPAY ==
--- OUTSIDE RECORDS SUMMARY | 2024-11-05 15:04 | XMS_ITS | Clinical Summary ---
Author Organization [facility] it Address [address] [place] [address] Care Team Providers Care Level Glass Vial Filler Name Role Phone Unavailable Primary Care Provider [...]
== END 2024-11-05 13:31 | disposition home or self-care (01) ==
LOC: HO.LNP 13:30
PROVIDERS: PCP Internal Medicine Medical Oncology; Referring Provider Internal Medicine Medical Oncology; Visit Provider Surgery
DX: L72.0 Epidermal cyst (principal)
CPT/HCPCS: 11423; 88304; 99202

== ENCOUNTER 2024-11-14 14:07 | Outpatient (AMB) | payer MEDICARE, SELFPAY ==
--- NOTE | 2024-11-14 14:13 | A.OFFVIS_ITS ---
Vital Signs 11/14/24 14:20 Height 5 ft 6 in Weight 200 lb 9.93 oz BMI 32.4 Pulse 72 Intake Visit Reasons: post exc Large celia on neck Intake Note: Patient is seen in office for post op assessment post excision of large epidermal inclusion cyst of the posterior neck. Pt c/o: suture removal at visit, has no concerns Director Payment Required: No Accompanied by: Self / Same As Patient Allergies No Known Allergies Allergy (Verified 11/14/24 14:21) HPI Comments Details: 69-year-old male patient status post excision of a epidermal inclusion cyst of the posterior neck. He returns today for wound check and suture removal. Pathology confirmed an epidermal inclusion cyst. He tolerated the procedure well and does note some itchiness currently possibly from the sutures. [facility] Medical History Distal radius fracture, right HTN (hypertension) Prostate CA COPD (chronic obstructive pulmonary disease) Surgical History Hx of prostate biopsy (05/2023) Hx of bilateral cataract extraction (1999) Hx of colonoscopy Family History Father No problems noted. Mother HX: breast cancer Physical Exam Const General: comfortable Nutritional Appearance: well nourished Orientation/consciousness: patient oriented x3 Neck Other: Wounds clean, dry, and intact with redness just around the sutures. The sutures removed and wounds found to be well healed. Neuro General: patient oriented x3 Assessment & Plan Assessment & Plan (1) Epidermal inclusion cyst: Code(s): L72.0 - Epidermal cyst Category: Medical Plan Patient returns 1 week following excision of an epidermal inclusion cyst of the neck. He tolerated the procedure well his wounds are healing nicely. Sutures removed today and the wounds found to be well healed. He should follow up as needed. Coding Level of Care Code Global (68107) Diagnoses Epidermal inclusion cyst L72.0
[2024-11-14 14:20] VITALS: PULSE 72; BMI 32.4
--- OUTSIDE RECORDS SUMMARY | 2024-11-14 15:14 | XMS_ITS ---
Author Organization Micah Bellamy III, MD Address [address] [place] [address] Care Team Providers Care Resident Intern Name Role Phone Micah Bellamy Primary Care [...] Date Status Ketoconazole 2 % 1 application Tire Mounter ally Twice a day 04/01/2024 Active Ondansetron [...] Risk Notes Problem Major depression, single episode ([id number]) Major depressive disorder, single episode, unspecified (F32.9) [...] Date Provider Diagnosis Micah Bellamy III, MD [address] [place] [address] [place] [address] 08/14/2024 Micah Bellamy Essential hypertensi on I10 [...] completed his radiation in October 2023 at [facility]. This value will be observed. 08/14/2024 Benign [...] Date Notes Ketoconazole 2 % 1 application Tire Mounter ally Twice a day 04/01/2024 Ondansetron 4 [...] Provider Name:Micah Parisrne, 02/14/2025 03:00:00 PM, [address] [facility] [address], [place], [address], Provider Name:Micah Bellamy, 08/18/2025 03:30:00 PM, [address] [facility] [address], [place], [address], Progress Notes * Rosalino RICE TDOB:1955 ( 69 yo M)Acc No.[id number]:08/14/2024 Progress Notes Patient:?MYRTLEROHINIAbram Rosalino T Provider:?Micah Bellamy MD :1955???Age:69 Y???Sex:Male Connor e:08/14/2024 Address:[address] [place] [id number] Subjective: * Chief Complaints: * ???Annual Exam [...] has no children. He was born in [place], [place]. He is in a happy and [...] 33?L (Ref Range: >40 mg/dL) * Lab:[facility] * Collection Date 08/07/2024 [...] - 1.025?pH 5.05.0 - 9.0?LEUNegativeNegative -?NITNegativeNegative - ?[id number] - Trace?GLUNegativeNegative -?KET1.025 Negative -?UBG0.20.1 - 1.8?BILNegative0.2 [...] completed his radiation in October 2023 at [facility]. This value will be observed.???2.?Essential hypertension - [...] Negative - * ?Menstrating N/A * Procedure Codes:?60679 URINE -NO MICRO * Preventive Medicine:? ??Counseling:?Care [...] Bellamy MD Date:?07/27 Generated for Gai sandrita/Taylor/eTransmitting on:?11/14/2024 03:13 PM EST History and Physical Notes * [...]
--- OUTSIDE RECORDS SUMMARY | 2024-11-14 15:14 | XMS_ITS ---
Author Organization Micah Bellamy III, MD Address [address] [place] [address] [place] [address] Care Team Providers Care Educational Aide Name Role Phone Micah Bellamy Primary Care Provider Allergies Allergen (clinical drug ingredient) Drug/Non Drug Allergy documented on EMR Reaction Allergy Type Onset Date Status No Known Drug Allergy Unknown Drug Allergy Active Reason For Referral Reason Evaluate and Treat Large jatin on neck Diagnosis 1 Jatin (L72.0) Referral Organization Micah Bellmay III, MD Referring Provider First Name Micah [...] DAY Active Ketoconazole 2 % 1 application Bioassayist ally Twice a day 04/01/2024 Active Ondansetron [...] Date Provider Diagnosis Micah Bellamy III, MD [address] [place] [address] [place] [address] 10/14/2024 Micah Bellamy Essential hypertensi on I10 [...] completed his radiation in October 2023 at [facility]. This value will be observed. 10/14/2024 Obesity [...] EVERY DAY Ketoconazole 2 % 1 application Bioassayist ally Twice a day 04/01/2024 Ondansetron 4 [...] removal Provider Name:Micah Bellamy, 02/14/2025 03:00:00 PM, [address] [place] [address] [address], [place], [address], Provider Name:Micah Bellamy, 08/18/2025 03:30:00 PM, [address] [place] [address] [place], [address], Progress Notes * Rosalino RICE TDOB:1955 ( 69 yo M)Acc No.[id number]:10/14/2024 Patient:?Rosalino RICE Provider:?Micah Bellamy MD :1955???Age:69 Y???Sex:Male Connor e:10/14/2024 Address:[address] [place] [address], [phone] Subjective: * Chief Complaints: * ???Prostate cancerHypertensi onCOPDHearing lossBenign prostatic hypertrophyObesitySebaceous cyst, neck * HPI: ???:? TO SALLY FOR NECK JATIN. ?Telehealth?Location of provider rendering services:?{...} [address] [facility] [address] ?Location of patient:?address listed in demographics for [...] has no children. He was born in [place], [place]. He is in a happy and [...] Time - 10/04/2024 11:50 AM)?ValueReference Range?Erythrocyte Sedimentation Rptt77-92 - MM/HR ???Lab:URINE DIP STICK (Order Date - 08/14/2024) (Collection Date & Time - 08/14/2024)?ValueReference Range?SGNegative1.005 - 1.025?pH 5.05.0 - 9.0?LEUNegativeNegative -?NITNegativeNegative - ?[id number] - Trace?GLUNegativeNegative -?KET1.025 Negative -?UBG0.20.1 - 1.8?BILNegative0.2 [...] completed his radiation in October 2023 at [facility]. This value will be observed.???2.?Essential [...] Bellamy MD Date:?09/26 Generated for Sebastián remy/Taylor/[place] on:?11/14/2024 03:13 PM EST History and Physical Notes * HPI (History of Present Illness) Category Sub-Category Detail Notes Telehealth Location of [facility] rendering services:: {...} [address] [id number] Location of patient:: address listed in demographics [...]
--- OUTSIDE RECORDS SUMMARY | 2024-11-14 15:14 | XMS_ITS | Clinical Summary ---
Author Organization [facility] it Address [address] [place] [address] Care Team Providers Care Santa'S Helper Name Role Phone Unavailable Primary Care Provider [...] DTaP,Tdap,and Td Vaccines (1 - Tdap) 1973 Pneumococcal Vaccine: 50+ Ye ars (1 of 1 - PCV) 02/14/2004 Zoster Vaccines (1 of 2) 02/14/2004 Abdominal Aortic Aneurysm (A AA) Screen 10/24/2023 [...] patient's age to complete this topic Meningococcal B Vacine Aged Out No lo nger eligible based on patient's age to complete this topic RSV Immunization Patients Un meghann 20 months Aged Out No longer eligible b ased on patient's age to complete this topic Varicella Vaccines Aged Out No longer eligible based on patient's age to complete this topic
--- OUTSIDE RECORDS SUMMARY | 2024-11-14 15:15 | XMS_ITS ---
Author Organization Micah Bellamy III, MD Address [address] [address] Care Team Providers Care Detailer [employer] Photographs Name Role Phone Micah Bellamy Primary Care Provider [phone] REASON FOR VISIT New Refill Request Medications Medication SIG (Take, Route, Fr equency, Duration) Notes Start Date End Date Status hydrALAZINE HCl 25 mg 1 tablet with food Orally Twice a day for 90 days Active Social History Sex Assigned At : Social History Observation Description Sex Assigned At Male Encounters Encounter Location Date Provider Diagnosis Micah Bellamy III, MD [address] [place] [address] [place] [address] 11/14/2024 Micah Bellamy Essential hypertensi on I10 Assessments Encounter Date Diagnosis (ICD Code) Assessment Notes Treat ment Notes Treatment Clinical Notes 11/14/2024 Essential hypertension (ICD-10 - I10) His blood pressure is stable. I recommended aggressive weight loss and sodium restriction. Plan Of Treatment Medication Medication Name Sig Start Date Stop Date Notes hydrALAZINE HCl 25 mg 1 tablet with food Orally Twice a day for 90 days Next Appt Details Provider Name:Micah Bellamy, 02/14/2025 03:00:00 PM, [address] [place] [address] [place], [address], Provider Name:Micah Bellamy, 08/18/2025 03:30:00 PM, [address] [place] [address] [place], [address], Progress Notes * Rosalino RICE TDOB:1955 ( 69 yo M)Acc No.[id number]:11/14/2024 Patient:?Rosalino RICE :1955???Age:69 Y???Sex:Male Address:[address] [place] [address] * Refills? Refill hydrALAZINE HCl ab, 25 mg, Orally, 180, 1 tablet with food, Twice a day, 90 days, Refills=3 * true * Date:? Generated for Sebastián remy/Taylor/eTransmitting on:?11/14/2024 03:14 PM EST
== END 2024-11-14 14:21 | disposition home or self-care (01) ==
PROVIDERS: PCP Internal Medicine Medical Oncology; Visit Provider Surgery
DX: L72.0 Epidermal cyst (principal)
CPT/HCPCS: 99024

== ENCOUNTER → 2024-11-14 14:07 | Outpatient (BNVA) | payer MEDICARE, SELFPAY | PROVIDERS: PCP Internal Medicine Medical Oncology; Visit Provider Surgery | DX: Z48.817 Encounter for surgical aftercare following surgery on the skin and subcutaneous tissue (principal); Z98.890 Other specified postprocedural states | CPT/HCPCS: 99212 ==

== ENCOUNTER 2025-02-07 11:38 | Outpatient (REF) | payer MEDICARE, SELFPAY ==
--- OUTSIDE RECORDS SUMMARY | 2025-02-07 11:51 | XMS_ITS ---
Author Organization Mciah Bellamy III, MD Address [address] [place] [address] Care Team Providers Care [employer] Name Role Phone Micah Bellamy Primary Care Provider [phone] Allergies Allergen (clinical drug ingredient) Drug/Non Drug [...] Date Status Ketoconazole 2 % 1 application Sexual Assault Nurse ally Twice a day 04/01/2024 Active Ondansetron [...] Risk Notes Problem Major depression, single episode ([id number]) Major depressive disorder, single episode, unspecified (F32.9) [...] Date Provider Diagnosis Micah Bellamy III, MD [address] [place] [address] [place] [address] 08/14/2024 Micah Bellamy Essential hypertensi on I10 [...] completed his radiation in October 2023 at [facility]. This value will be observed. [...] Date Notes Ketoconazole 2 % 1 application Sexual Assault Nurse ally Twice a day 04/01/2024 Ondansetron 4 [...] Provider Name:Micah Parisrne, 02/14/2025 03:00:00 PM, [address], [place], [address], Provider Name:Micah Bellamy, 08/18/2025 03:30:00 PM, [address] [facility] [address], [place], [address], Progress Notes * Rosalino RICE TDOB:1955 ( 69 yo M)Acc No.[id number]:08/14/2024 Progress Notes Patient:?MYRTLEROHINIAbram Rosalino T Provider:?Micah Bellamy MD :1955???Age:69 Y???Sex:Male Connor e:08/14/2024 Address:[address] [place] [phone] Subjective: * Chief Complaints: * ???Annual Exam [...] has no children. He was born in [place], [place]. He is in a happy and [...] 33?L (Ref Range: >40 mg/dL) * Lab:[facility] * Collection Date 08/07/2024 [...] - 1.025?pH 5.05.0 - 9.0?LEUNegativeNegative -?NITNegativeNegative - ?[id number] - Trace?GLUNegativeNegative -?KET1.025 Negative -?UBG0.20.1 - 1.8?BILNegative0.2 [...] completed his radiation in October 2023 at [facility]. This value will be observed.???2.?Essential [...] Negative - * ?Menstrating N/A * Procedure Codes:?96851 URINE -NO MICRO * Preventive Medicine:? ??Counseling:?Care [...] Bellamy MD Date:?07/27 Generated for Gai sandrita/Taylor/eTransmitting on:?02/07/2025 11:50 AM EDT History and Physical Notes * HPI [...]
--- OUTSIDE RECORDS SUMMARY | 2025-02-07 11:51 | XMS_ITS | Clinical Summary ---
Author Organization [facility] it Address [address] [place] [address] Care Team Providers Care Paradi Tender Name Role Phone Unavailable Primary Care Provider [...] - 2023-2 5 season) 2024 Influenza Vaccine (Season Ended) 2025 RSV Immunization Adult Patie nts (1 - 1-dose 75+ series) 2029 HIB [...] age to complete this topic Meningococcal B Vaccine Aged Out No l onger eligible based on patient's age to complete this topic RSV Immunization Patients Un meghann 20 months Aged Out No longer eligible b ased on patient's age to complete this topic Varicella Vaccines Aged Out No longer eligible based on patient's age to complete this topic
--- OUTSIDE RECORDS SUMMARY | 2025-02-07 11:51 | XMS_ITS | Patient Health Record ---
Author Organization Micah Bellamy III, MD Address [address] [address] Care Team Providers Care Visual Basic Developer Name Role Phone Micah Bellamy Primary Care Provider [phone] Allergies Allergen (clinical drug ingredient) Drug/Non Drug [...] ff Reviewed date:03/30/2024 06:39:20 AM Interpretation: Performing Lab:[facility], [address] [place] [phone] Notes/Report: White Blood Count 4.7 4.8-10.8 X10*3/uL [...] NRBC Abs Auto 0.000 0.0-0.012 X10*3/uL Comprehensive [place]. Panel Fa st Reviewed date:03/30/2024 06:39:20 AM Interpretation: Performing Lab:[facility], [address] [place] [address] Notes/Report: Sodium 140 135-145 mmol/L Potassium 4.2 3.3-5.1 mmol/L Chloride 110 96-108 mmol/L Carbon Dioxide 23 22-29 mmol/L Anion Gap 11 12-20 Blood Urea Nitrogen 19 9-16 mg/dL Creatinine 1.02 0.5-1.4 mg/dL Estimated Glomerular Filt Rate > 60 NOTE: For -Montenegrin individuals, multiply the result by 1.210. Chronic [...] Panel Reviewed date:03/30/2024 06:39:20 AM Interpretation: Performing Lab:[address] [address] Notes/Report: Triglycerides 141 <150 mg/dL Desirable Triglyceride: [...] Antigen Reviewed date:03/30/2024 06:39:20 AM Interpretation: Performing Lab:[address] [address] Notes/Report: Prostate Specific Antigen 1.41 <0.05-4.0 ng/mL PSA methodology: Parry Alinity i Chemiluminescent Microparticle Immunoassay (CMIA) Complete Blood Count Auto Di ff Reviewed date:08/08/2024 09:49:01 AM Interpretation: Performing Lab:[address] [address] Notes/Report: White Blood Count 5.6 4.8-10.8 X10*3/uL [...] NRBC Abs Auto 0.000 0.0-0.012 X10*3/uL Comprehensive [place]. Panel Fa st Reviewed date:08/08/2024 09:49:01 AM Interpretation: Performing Lab:[facility], [address] [place] [phone] Notes/Report: Sodium 142 135-145 mmol/L Potassium 4.1 [...] Panel Reviewed date:08/08/2024 09:49:01 AM Interpretation: Performing Lab:[address] [address] Notes/Report: Triglycerides 214 <150 mg/dL Desirable Triglyceride: [...] Antigen Reviewed date:08/08/2024 09:49:01 AM Interpretation: Performing Lab:[address] [address] Notes/Report: Prostate Specific Antigen 1.41 <0.05-4.0 ng/mL PSA methodology: Parry Alinity i Chemiluminescent Microparticle Immunoassay (CMIA) Complete Blood Count Auto Di ff Reviewed date:10/05/2024 08:38:35 PM Interpretation: Performing Lab:[address] [address] Notes/Report: White Blood Count 4.9 4.8-10.8 X10*3/uL [...] te Reviewed date:10/05/2024 08:38:35 PM Interpretation: Performing Lab:[facility], [address] [place] [phone] Notes/Report: Erythrocyte Sedimentation Rate 2 0-15 MM/HR Patients with polycythemia and many hemoglobin abnormalities may have depressed sed rates whereas patients with anemia may have elevated sed rates. Comprehensive Met. Panel Reviewed date:10/05/2024 08:38:35 PM Interpretation: Performing Lab:[facility], [address] [place] [phone] Notes/Report: Sodium 143 135-145 mmol/L Potassium 4.0 [...] e Reviewed date:10/05/2024 08:38:35 PM Interpretation: Performing Lab:[facility], [address] [place] [phone] Notes/Report: Gamma Glutamyl Transpeptidase 28 11-51 U/L Prostate Specific Antigen Reviewed date:10/05/2024 08:38:35 PM Interpretation: Performing Lab:[facility], [address] [place] [address] Notes/Report: Prostate Specific Antigen 1.06 <0.05-4.0 ng/mL PSA methodology: Modulus Video Alinity i Chemiluminescent Microparticle Immunoassay (CMIA) Reason For Referral Reason Evaluate and Treat Large cara on neck Diagnosis 1 Cara (L72.0) Referral Organization Micah Bellamy III, MD Referring Provider First Name Micah Referring Provider Last Name Mia Referring Provider Speciality Internal M edicine Referred Provider George Bob Referred Provider Specialty General Surg bev General Janett Young 10/16/2024 09:35:37 AM > Referral Faxed with progress notePrema Amber 10/24/2024 03:12:28 PM >Patient is scheduled for 11/05/24 @ [address] with Dr[address] Bob Referral Priority Routine Referral Appointment Date 11/05/2024 Medications Medication SIG (Take, Route, Frequency, Duration) Notes Start Date End Date Status amLODIPine Besylate 10 MG TAKE 1 TABLET BY MOUTH EVERY DAY Active Ondansetron 4 MG 1 tablet on the tong ue and allow to dissolve Orally every four hours for nausea 08/14/2024 Active hydrALAZINE HCl 25 mg 1 tablet with food Orally Twice a day for 90 days Active Ketoconazole 2 % APPLY TO AFFECTED AR EA TWICE A DAY for 30 Active Ondansetron 4 MG 1 tablet on [...] Problem Status W/U Status Risk Notes Problem 0757620 Former smoker (Z87.891) Active confirmed He is highly motivated not to smoke. We reviewed his plan to prevent relapse in times of stress and illness. Problem 596669082348972 Obesity (BMI 30.0-34.9) (E66.9) Active confirmed He weighs 197 pounds. His appetite is good. We discussed his weight loss strategy. We reviewed his diet and nutrition. We made a plan to lose weight at a rate of one half of a pound per week. He was encouraged to be physically active. Problem 062918090 Prostate cancer (C61) Active confirmed His PSA has fallen to 1.06. He completed his radiation in October 2023 at [facility]. This value will be observed. Problem Major depression, single episode (61647230) Major depressive disorder, single episode, unspecified (F32.9) Active confirmed His depression remains in remission. Problem 584638000 Chronic obstructive pulmonary disease, unspecified (J44.9) Active confirmed He is breathing comfortably. He is moving air well without obstruction. He is no longer smoking. Problem 51715009 Calculus of gallbladder without cholecystitis without obstruction (K80.20) Active confirmed He is asymptomatic and will be observed. Problem 23237989 Essential hypertension (I10) Active confirmed His blood pressure is stable. I recommended aggressive weight loss and sodium restriction. Problem 97329146 Age-related nuclear cataract of both eyes (H25.13) Active confirmed He is quite happy with the results of his surgery. No change in his regimen as needed. Problem Benign prostatic hyperplasia, unspecified whether lower urinary tract symptoms present (N40.0) Active confirmed He arises fr om sleep once or twice a night to urinate. We have discussed lifestyle modifications he could make to reduce nocturia. He remains under the care of urology. Problem 854399391 Sensorineural hearing loss (SNHL) of both ears [...] Date Provider Diagnosis Micah Bellamy III, MD [address] [place] [address] [address], [place] [address] 04/01/2024 Micah Bellamy Essential hypertensi on I10 ; Chronic obstructive pulmonary disease, unspecified J44.9 ; Former smoker Z87.891 ; Obesity (BMI 30.0-34.9) E66.9 ; Dysgeusia R43.2 and Prostate cancer C61 Micah Bellamy III, MD [address] [place] [address] [place] [address] 05/31/2024 Micah Bellamy Essential hypertensi on I10 ; Prostate cancer C61 ; Obesity (BMI 30.0-34.9) E66.9 ; Former smoker Z87.891 ; Benign prostatic hyperplasia, unspecified whether lower urinary tract symptoms present N40.0 and Chronic obstructive pulmonary disease, unspecified J44.9 Micah Bellamy III, MD [address] [place] [address] [place] [address] 08/14/2024 Micah Bellamy Essential hypertensi on I10 ; Prostate cancer C61 ; Benign prostatic hyperplasia, unspecified whether lower urinary tract symptoms present N40.0 ; Obesity (BMI 30.0-34.9) E66.9 ; Former smoker Z87.891 ; Chronic obstructive pulmonary disease, unspecified J44.9 ; Sensorineural hearing loss (SNHL) of both ears H90.3 and Major depressive disorder, single episode, unspecified F32.9 Micah Bellamy III, MD [address] [place] [address] [place] [address] 10/14/2024 Micah Bellamy Essential hypertensi on I10 ; Prostate cancer C61 ; Obesity (BMI 30.0-34.9) E66.9 ; Benign prostatic hyperplasia, unspecified whether lower urinary tract symptoms present N40.0 ; Former smoker Z87.891 and Chronic obstructive pulmonary disease, unspecified J44.9 Micah Bellamy III, MD [address] [place] [address] [place] [address] 05/01/2024 Micah Bellamy III, MD [address] [place] [address] [place] [address] 11/14/2024 Micah Miller hypertensi on I10 Assessments Encounter Date Diagnosis (ICD Code) Assessment Notes Treat ment Notes Treatment Clinical Notes 04/01/2024 Chronic obstructive pulmonary disease, unspecified (ICD-10 [...] completed his radiation in October 2023 at [facility]. This value will be observed. 05/31/2024 Essential hypertension (ICD-10 - I10) His blood pressure is stable. I recommended aggressive weight loss and sodium restriction. 08/14/2024 Prostate cancer (ICD-10 - C61) His PSA has fallen to 1.41. He completed his radiation in October 2023 at [facility]. This value will be observed. 08/14/2024 [...] completed his radiation in October 2023 at [facility]. This value will be observed. 10/14/2024 Essential hypertension (ICD-10 - I10) His blood pressure is stable. I recommended aggressive weight loss and sodium restriction. 11/14/2024 Essential hypertension (ICD-10 - I10) His blood pressure is stable. I recommended aggressive weight loss and sodium restriction. 04/01/2024 Former smoker (ICD-10 - Z87.891) He [...] He was encouraged to be physically active. 04/01/2024 Obesity (BMI 30.0-34.9) (ICD-10 - E66.9) [...] He remains under the care of urology. 04/01/2024 Dysgeusia (ICD-10 - R43.2) He has [...] in times of stress and illness. 04/01/2024 Prostate cancer (ICD-10 - C61) His [...] RANDOM (COMPREHENSIVE METABOLIC ) 08/14/2024 LIPID PANEL 04/11/2023 LIPID PANEL 01/09/2023 LIPID PANEL 08/23/2022 GGT 04/11/2023 GGT 10/14/2024 GGT 08/14/2024 PSA, TOTAL 08/23/2022 PSA, TOTAL 04/11/2023 PSA, TOTAL 03/18/2022 PSA, TOTAL 01/09/2023 PSA, TOTAL 10/14/2024 PSA, TOTAL 08/14/2024 PSA, TOTAL 12/15/2021 PSA, TOTAL 12/09/2022 PSA, TOTAL 05/31/2024 PSA, TOTAL 11/27/2023 CBC w DIFF 11/27/2023 CBC w DIFF 08/23/2022 CBC w DIFF 04/11/2023 CBC w DIFF 03/18/2022 CBC w DIFF 01/09/2023 CBC w DIFF 12/15/2021 CBC w DIFF 12/09/2022 SED RATE (ESR) 08/14/2024 Echocardiogram 11/25/2015 PFT with DLCO 12/15/2015 CBC WITH AUTO DIFF 08/14/2024 CBC WITH AUTO DIFF 10/14/2024 CBC WITH AUTO DIFF 05/31/2024 Lipid Panel 12/15/2021 Lipid Panel 05/31/2024 Lipid Panel 11/27/2023 Lipid Panel 10/14/2024 Next Appt Details Provider Name:Micah Bellamy, 02/14/2025 03:00:00 PM, [address] [place] [address] [address], [place], [address], Provider Name:Micah Bellamy, 08/18/2025 03:30:00 PM, [address] [place] [address] [address], [place], [address], Insurance Providers Payer Name Payer Address Payer Phone Subscriber Number Group Number Insured Name Patient Relationship to Insured Coverage Start Date Coverage End Date MEDICARE NGS [address] [place] [phone] [id number] Rosalino Naik Self - patient is the insured [employer] P[employer]ED [address] [place] [phone] [id number] Rosalino Naik Self - patient is the insured Medical (General) History Medical History History ICD Code pulmonary nodule OA right shoulder and knee chronic obstructive pulmonary disease (C OPD) gallstones pancreatitis 2007 epididymitis 2003 former smoker bilateral cataracts {'Prostate Cancer': 'Underwent radiation therapy in 2023'} Surgical History Surgery Date(Month/Year) colonoscopy - tubular adenoma 2009 colonoscopy 2012 bilateral cataract extractions 1999 Space OAR/ Gold seed placement, Prostate Ca 08/2023 Prostate Biopsy 05/2023 No history Hospitalization History Reason Date(Month/Year) No history
--- OUTSIDE RECORDS SUMMARY | 2025-02-07 11:51 | XMS_ITS ---
Author Organization Micah Bellamy III, MD Address [address] [place] [address] Care Team Providers Care Head Host/Hostess Name Role Phone Micah Bellamy Primary Care Provider REASON FOR VISIT New Refill Request Medications Medication SIG (Take, Route, Fr equency, Duration) Notes Start Date End Date Status hydrALAZINE HCl 25 mg 1 tablet with food Orally Twice a day for 90 days Active Social History Sex Assigned At : Social History Observation Description Sex Assigned At Male Encounters Encounter Location Date Provider Diagnosis Micah Bellamy III, MD [address] [place] [address] [place] [address] 11/14/2024 Micah Bellamy Essential hypertensi on I10 [...] Details Provider Name:Micah Bellamy, 02/14/2025 03:00:00 PM, [address] [place] [address] [place], [address], Provider Name:Micah Bellamy, 08/18/2025 03:30:00 PM, [address] [place] [address] [place], [address], Progress Notes * Rosalino RICE TDOB:1955 ( 69 yo M)Acc No.[id number]:11/14/2024 Patient:?Rosalino RICE :1955???Age:69 Y???Sex:Male Address:[address] [place] [address] * Refills? Refill hydrALAZINE HCl ab, 25 mg, Orally, 180, 1 tablet with food, Twice a day, 90 days, Refills=3 * true * Date:? Generated for Sebastián remy/Taylor/eTransmitting on:?02/07/2025 11:50 AM EDT
--- OUTSIDE RECORDS SUMMARY | 2025-02-07 11:51 | XMS_ITS ---
Author Organization Micah Bellamy III, MD Address [address] [place] [address] [place] [address] Care Team Providers Care Bobbin Stripper Name Role Phone Micah Bellamy Primary Care [...] DAY Active Ketoconazole 2 % 1 application Sign Language Instructor ally Twice a day 04/01/2024 Active Ondansetron [...] Date Provider Diagnosis Micah Bellamy III, MD [address] [place] [address] [place] [address] 10/14/2024 Micah Bellamy Essential hypertensi on I10 [...] completed his radiation in October 2023 at [facility]. This value will be observed. 10/14/2024 [...] EVERY DAY Ketoconazole 2 % 1 application Sign Language Instructor ally Twice a day 04/01/2024 Ondansetron 4 [...] removal Provider Name:Micah Bellamy, 02/14/2025 03:00:00 PM, [address] [place] [address] [address], [place], [address], Provider Name:Micah Bellamy, 08/18/2025 03:30:00 PM, [address] [place] [address] [place], [address], Progress Notes * Rosalino RICE TDOB:1955 ( 69 yo M)Acc No.[id number]:10/14/2024 Patient:?Rosalino RICE Provider:?Micah Bellamy MD :1955???Age:69 Y???Sex:Male Connor e:10/14/2024 Address:[address] [place] [address], [id number] Subjective: * Chief Complaints: * ???Prostate cancerHypertensi onCOPDHearing lossBenign prostatic hypertrophyObesitySebaceous cyst, neck * HPI: ???:? TO SALLY FOR NECK JATIN. ?Telehealth?Location of provider rendering services:?{...} [address] [facility] [address] ?Location of patient:?address listed in demographics for [...] has no children. He was born in [place], [place]. He is in a happy and [...] Time - 10/04/2024 11:50 AM)?ValueReference Range?Erythrocyte Sedimentation Ofka24-64 - MM/HR ???Lab:URINE DIP STICK (Order Date - 08/14/2024) (Collection Date & Time - 08/14/2024)?ValueReference Range?SGNegative1.005 - 1.025?pH 5.05.0 - 9.0?LEUNegativeNegative -?NITNegativeNegative - ?[id number] - Trace?GLUNegativeNegative -?KET1.025 Negative -?UBG0.20.1 - 1.8?BILNegative0.2 - 1.3?BLDNegative Negative -?MenstratingN/A * Lab:[facility] * Collection Date 08/07/2024 03/29/2024 11/22/2023 Collection [...] completed his radiation in October 2023 at [facility]. This value will be observed.???2.?Essential hypertension [...] Bellamy MD Date:?09/26 Generated for Sebastián remy/Taylor/[place] on:?02/07/2025 11:50 AM EDT History and Physical Notes * HPI (History of Present Illness) Category Sub-Category Detail Notes Telehealth Location of [facility] rendering services:: {...} [address] [id number] Location of patient:: address listed in demographics [...]
[2025-02-07 13:50] LABS: MANUAL DIFF FLAG NO
[2025-02-07 13:59] LABS: Basophils Percent Auto 0.6 % (0-2); Eosinophils Absolute Auto 0.2 X10*3/uL (0.0-0.4); Hematocrit 46.2 % (42.0-52.0); Imm Gran Abs Auto 0.01 X10*3/uL (0.00-0.03); Imm Gran Pct Auto 0.2 % (0.0-0.4); Lymphocytes Percent Auto 39.5 % (20-40); Mean Corpuscular HGB Conc 34.6 g/dl (31.0-36.0); Mean Corpuscular Hemoglobin 30.1 pg (27.0-33.0); Mean Corpuscular Volume 86.8 fL (80.0-98.0); Mean Platelet Volume 9.9 fL (9.4-12.4); Monocytes Absolute Auto 0.5 X10*3/uL (0.1-1.2); Monocytes Percent Auto 9.1 % (2-11); Neutrophils Absolute Auto 2.4 x10*3/uL (2.0-8.3); Neutrophils Percent Auto 47.6 % (45-73); Platelet Count 261 X10*3/uL (160-400); Red Blood Count 5.32 X10*6/uL (4.60-5.80); Red Cell Distribution Width 14.2 % (11.0-16.0)
[2025-02-07 14:29] LABS: Alanine Aminotransferase 58 U/L (0-40); Albumin Level 4.5 g/dL (3.5-5.0); Alkaline Phosphatase 58 U/L (39-117); Anion Gap 12 (12-20); Aspartate Amino Transferase 48 U/L (5-37); Bilirubin Total 0.6 mg/dL (0.0-1.0); Blood Urea Nitrogen 16 mg/dL (9-16); Calcium 9.2 mg/dL (8.4-10.2); Carbon Dioxide 24 mmol/L (22-29); Chloride 111 mmol/L (96-108); Cholesterol 188 mg/dL (<200); Estimated Glomerular Filt Rate > 60; Gamma Glutamyl Transpeptidase 31 U/L (11-51); Glucose Fasting 88 mg/dL (60-99); HDL Cholesterol 29 mg/dL (>40); LDL Cholesterol Calculated 115 mg/dL (<100); Potassium 4.2 mmol/L (3.3-5.1); Sodium 142 mmol/L (135-145); Total Protein 7.8 g/dL (6.5-8.0); Triglycerides 223 mg/dL (<150)
== END 2025-02-07 11:39 | disposition home or self-care (01) ==
LOC: HO.10HDL 11:38
PROVIDERS: Visit Provider Internal Medicine Medical Oncology
DX: I10 Essential (primary) hypertension (principal); E66.9 Obesity, unspecified; K80.20 Calculus of gallbladder without cholecystitis without obstruction; N40.0 Benign prostatic hyperplasia without lower urinary tract symptoms; Z12.5 Encounter for screening for malignant neoplasm of prostate
CPT/HCPCS: 36415; 80053; 80061; 82977; 84153; 85025

== ENCOUNTER 2025-05-13 11:54 | Outpatient (REF) | payer MEDICARE, SELFPAY ==
--- OUTSIDE RECORDS SUMMARY | 2024-10-14 10:15 | XMS_ITS ---
Author Organization Micah Bellamy III, MD Address [address] [place] [address] [place] [address] Care Team Providers Care Manager Business Management Name Role Phone Micah Bellamy Primary Care Provider [phone] Allergies Allergen (clinical drug ingredient) Drug/Non Drug Allergy documented on EMR Reaction Allergy Type Onset Date Status No Known Drug Allergy Unknown Drug Allergy Active Reason For Referral Reason Evaluate and Treat Large jatin on neck Diagnosis 1 Jatin (L72.0) Referral Organization Micah Bellamy III, MD Referring Provider First Name Micah Referring Provider Last Name Mia Referring Provider Speciality Internal M edicine Referred Provider George Bob Referred Provider Specialty General Surg bev General Notes Janett Lloyd 10/16/2024 09:35:37 AM > Referral Faxed with progress note, Jnaett Lloyd 10/24/2024 03:12:28 PM >Patient is scheduled for 11/05/24 @ 2pm with Dr[address] Bob Referral Priority Routine Referral Appointment Date 11/05/2024 REASON FOR VISIT Prostate cancer, Hypertension, COPD, Hearing loss, Benign prostatic hypertrophy, Obesity, Sebaceouscyst, neck Medications Medication SIG (Take, Route, Frequency, Duration) Notes Start Date End Date Status amLODIPine Besylate 10 MG TAKE 1 TABLET BY MOUTH EVERY DAY Active Ketoconazole 2 % 1 application Power Switchboard Operator ally Twice a day 04/01/2024 Active Ondansetron 4 MG 1 tablet on the tong ue and allow to dissolve Orally every four hours for nausea 08/14/2024 Active Ondansetron 4 MG 1 tablet on the tong ue and allow to dissolve Orally every four hours prn nausea 07/09/2021 Active Sildenafil Citrate 20 MG 5 tablets Orall y once aday prn ED 06/27/2017 Active hydrALAZINE HCl 25 mg 1 tablet with food Orally Twice a day Active Social History Tobacco Use: Social History Observation Description Date Details (start date - stop date) Former Smoker NA - NA Sex Assigned At : Social History Observation Description Sex Assigned At Male Tobacco Use/Smoking Question Answer Notes Patient is a former smoker How long has it been since you last smoked? > 10 years Additional Findings: Tobacco Non-User Ex-cigaret te smoker Tobacco Control (Standard) Question Answer Notes Tobacco use: Former smoker How long has it been since you last smoked? Grea ter than 10 years Additional Findings: Tobacco non-user Ex-cigaret te smoker Vital Signs Height 66 in 10/14/2024 Weight 197 lbs 10/14/2024 BMI 31.79 kg/m2 10/14/2024 Encounters Encounter Location Date Provider Diagnosis Micah Bellamy III, MD [address] [place] [address] [place] [address] 10/14/2024 Micah Bellamy Essential hypertensi on I10 ; Prostate cancer C61 ; Obesity (BMI 30.0-34.9) E66.9 ; Benign prostatic hyperplasia, unspecified whether lower urinary tract symptoms present N40.0 ; Former smoker Z87.891 and Chronic obstructive pulmonary disease, unspecified J44.9 Assessments Encounter Date Diagnosis (ICD Code) Assessment Notes Treatment Notes Treatment Clinical Notes 10/14/2024 Essential hypertension (ICD-10 - I10) His blood pressure is stable. I recommended aggressive weight loss and sodium restriction. 10/14/2024 Prostate cancer (ICD-10 - C61) His PSA has fallen to 1.06. He completed his radiation in October 2023 at [facility]. This value will be observed. 10/14/2024 Obesity (BMI 30.0-34.9) (ICD-10 - E66.9) He weighs 197 pounds. His appetite is good. We discussed his weight loss strategy. We reviewed his diet and nutrition. We made a plan to lose weight at a rate of one half of a pound per week. He was encouraged to be physically active. 10/14/2024 Benign prostatic hyperplasia, unspecified whether lower urinary tract symptoms present (ICD-10 - N40.0) He arises from sleep once or twice a night to urinate. We have discussed lifestyle modifications he could make to reduce nocturia. He remains under the care of urology. 10/14/2024 Former smoker (ICD-10 - Z87.891) He is highly motivated not to smoke. We reviewed his plan to prevent relapse in times of stress and illness. 10/14/2024 Chronic obstructive pulmonary disease, unspecified (ICD-10 - J44.9) He is breathing comfortably. He is moving air well without obstruction. He is no longer smoking. Plan Of Treatment Medication Medication Name Sig Start Date Stop Date Notes amLODIPine Besylate 10 MG TAKE 1 TABLET BY MOUTH EVERY DAY Ketoconazole 2 % 1 application Power Switchboard Operator ally Twice a day 04/01/2024 Ondansetron 4 MG 1 tablet on the tong ue and allow to dissolve Orally every four hours for nausea 08/14/2024 Ondansetron 4 MG 1 tablet on the tong ue and allow to dissolve Orally every four hours prn nausea 07/09/2021 Sildenafil Citrate 20 MG 5 tablets Orall y once aday prn ED 06/27/2017 hydrALAZINE HCl 25 mg 1 tablet with food Orally Twice a day Pending Test Test Name Order Date PROFILE, FASTING (COMPREHENSIVE METABOLI C) 10/14/2024 GGT 10/14/2024 PSA, TOTAL 10/14/2024 CBC WITH AUTO DIFF 10/14/2024 Lipid Panel 10/14/2024 Referrals Referral Date Details 10/14/2024 10/14/2024, Evaluate and Treat Large jatin on neck, Geroge Bob Next Appt Details Follow Up: 3 Months, Reason: OV, Regular check-up and follow-up on mass removal Provider Name:Micah Bellamy, 05/19/2025 03:00:00 PM, [address] [place] [address] [address], [place], [address], Provider Name:Micah Bellamy, 08/18/2025 03:30:00 PM, [address] [place] [address] [place], [address], Progress Notes * Rosalino RICE TDOB:1955 ( 69 yo M)Acc No.[id number]:10/14/2024 Patient: Rosalino WRNE Provider: Abram Bellamy MD :1955 A ge:69 Y S ex:Male Date:10/14/2024 Address:[address] [place] [address] [id number] Subjective: * Chief Complaints: * P rostate cancerHypertensionCOPDHearing lossBenign prostatic hypertrophyObesitySebaceous cyst, neck * HPI: * : [place] [facility] [place] Telehealth L ocation of provider rendering services: { ...} [address] [facility] [address] L ocation of patient: glenn canales listed in demographics for today's visit P atient identification confirmed using: YEN Guerrero ame elehealth method: T elephone only. Patient not visible to care provider. C onsent: P atient verbally consented to treatment, Patient verbally consented to billing insurance company, Patient informed of any privacy concerns related to method of visit T otal time spent with patient (mins) 2 2 The patient, a 69-year-old male, reported feeling okay overall. He mentioned a wenon his neck that was causing discomfort and pain, especially when pressure was applied, such as when putting on a jacket. The mass was initially able to be squeezed, with pus coming out, but it has since solidified and nothing more can be squeezed out of it. The patient believes it is pressing on something as it is affecting his left side, neck, and shoulder blade. He expressed a desire to have it removed. The patient also mentioned having undergone radiation treatment for an elevated PSA level, which has since decreased significantly. He is feeling generally well and is breathing comfortably. He is not smoking. His PSA is stable.It has improved from 1.41 to 1.06. * ROS: G eneral/Constitutional: pain o nly normal aches and pains. C hills d enies.?Fatigue a dmits. F ever d enies. E NT: Decreased hearing i n both ears. R espiratory: Cough d enies. C ardiovascular: Chest pain with exertion d enies. D yspnea on exertion?denies. S hortness of breath d enies. G astrointestinal: Constipation o ccasional. D ecreased appetite d enies. D iarrhea d enies. H eartburn d enies. N ausea d enies. R ectal bleeding d enies. V omiting d enies. H ematology: bruising d enies. p etechiae d enies. S wollen glands n one have been noted. G enitourinary: Frequent urination o nce a night. M usculoskeletal: Muscle aches d enies. P ainful joints d enies. S ciatica d enies. W eakness d enies. S kin: Itching d enies. R elvia d enies. S kin lesion(s)?denies. N eurologic: Difficulty speaking d enies. D izziness d enies.?Headache d enies. L ow back pain d enies. P sychiatric: Depressed mood d enies. * Medical History: * Surgical History: c olonoscopy - tubular adenoma 2009colonoscopy 2012bilateral cataract extractions 1999Space OAR/ Gold seed placement, Prostate Ca rostate Biopsy 05/2023No history * Hospitalization/Major Diagno stic Procedure: N o history * Family History: F ather: 62 yrs, myocardial infarction in operating room, diabetes mellitus, diagnosed with DM. M other: 67 yrs, breast cancer, diagnosed with Cancer. 1 brother(s) - healthy. . He has no children. He is not aware of any family history of substance use disorder, addiction or mental illness. * Social History: T obacco Use: T obacco Use/Smoking P atient is a f ormer smoker H ow long has it been since you last smoked??> 10 years A dditional Findings: Tobacco Non-User E x-cigarette smoker Tobacco Control (Standard) T obacco use: F ormer smoker H ow long has it been since you last smoked??Greater than 10 years A dditional Findings: Tobacco non-user E x-cigarette smoker H e is working. He has no children. He was born in [place], [place]. He is in a happy and secure relationship with his significant other, Perry Estevez {'Alcohol Consumption': 'No history of alcohol consumption'}. * Medications: T akinghydrALAZINE HCl 25 mg ab 1 tablet with food Orally Twice a day Sildenafil Citrate 20 MG Tablet 5 tablets Orally once aday prn ED Ondansetron 4 MG Tablet Disintegrating 1 tablet on the tongue and allow to dissolve Orally every four hours prn nausea Ketoconazole 2 % Cream 1 application Externally Twice a day Ondansetron 4 MG Tablet Disintegrating 1 tablet on the tongue and allow to dissolve Orally every four hours for nausea amLODIPine Besylate 10 MG Tablet TAKE 1 TABLET BY MOUTH EVERY DAY Medication List reviewed and reconciled with the patientTaking hydrALAZINE HCl 25 mg ab 1 tablet with food Orally Twice a day Taking Sildenafil Citrate 20 MG Tablet 5 tablets Orally once aday prn ED Taking Ondansetron 4 MG Tablet Disintegrating 1 tablet on the tongue and allow to dissolve Orally every four hours prn nausea Taking Ketoconazole 2 % Cream 1 application Externally Twice a day Taking Ondansetron 4 MG Tablet Disintegrating 1 tablet on the tongue and allow to dissolve Orally every four hours for nausea Taking amLODIPine Besylate 10 MG Tablet TAKE 1 TABLET BY MOUTH EVERY DAY Medication List reviewed and reconciled with the patient * Allergies: N o Known Drug Allergyno[Allergies Verified] Objective: * Vitals: H t: 66, Wt:197, BMI:31.79, Wt-k.36. * P ast Orders: Lab:Complete Blood Count Aut o Diff * Collection Date 10/04/2024 08/07/2024 03/29/2024 Collection Time 11:50 AM 11:54 AM 12:18 PM Order Date 10/04/2024 08/07/2024 03/29/2024 White Blood Count 4.9 (Ref Range: 4.8-10.8 X10*3/uL) 5.6 (Ref Range: 4.8-10.8 X10*3/uL) 4.7 L (Ref Range: 4.8-10.8 X10*3/uL) Red Blood Count 5.36 (Ref Range: 4.60-5.80 X10*6/uL) 5.37 (Ref Range: 4.60-5.80 X10*6/uL) 5.31 (Ref Range: 4.60-5.80 X10*6/uL) Hemoglobin 16.6 (Ref Range: 14.0-18.0 g/dl) 16.2 (Ref Range: 14.0-18.0 g/dl) 16.2 (Ref Range: 14.0-18.0 g/dl) Hematocrit 47.2 (Ref Range: 42.0-52.0 %) 47.4 (Ref Range: 42.0-52.0 %) 46.9 (Ref Range: 42.0-52.0 %) Mean Corpuscular Volume 88.1 (Ref Range: 80.0-98.0 fL) 88.3 (Ref Range: 80.0-98.0 fL) 88.3 (Ref Range: 80.0-98.0 fL) Mean Corpuscular Hemoglobin 31.0 (Ref Range: 27.0-33.0 pg) 30.2 (Ref Range: 27.0-33.0 pg) 30.5 (Ref Range: 27.0-33.0 pg) Mean Corpuscular HGB Conc 35.2 (Ref Range: 31.0-36.0 g/dl) 34.2 (Ref Range: 31.0-36.0 g/dl) 34.5 (Ref Range: 31.0-36.0 g/dl) Red Cell Distribution Width 14.4 (Ref Range: 11.0-16.0 %) 14.4 (Ref Range: 11.0-16.0 %) 13.8 (Ref Range: 11.0-16.0 %) Platelet Count 286 (Ref Range: 160-400 X10*3/uL) 327 (Ref Range: 160-400 X10*3/uL) 281 (Ref Range: 160-400 X10*3/uL) Mean Platelet Volume 9.4 (Ref Range: 9.4-12.4 fL) 9.4 (Ref Range: 9.4-12.4 fL) 9.8 (Ref Range: 9.4-12.4 fL) Neutrophils Percent Auto 53.6 (Ref Range: 45-73 %) 50.0 (Ref Range: 45-73 %) 54.0 (Ref Range: 45-73 %) Imm Gran Pct Auto 0.4 (Ref Range: 0.0-0.4 %) 0.2 (Ref Range: 0.0-0.4 %) 0.2 (Ref Range: 0.0-0.4 %) Lymphocytes Percent Auto 30.5 (Ref Range: 20-40 %) 34.6 (Ref Range: 20-40 %) 31.0 (Ref Range: 20-40 %) Monocytes Percent Auto 11.0 (Ref Range: 2-11 %) 8.0 (Ref Range: 2-11 %) 10.7 (Ref Range: 2-11 %) Eosinophils Percent Auto 3.7 (Ref Range: 0-4 %) 5.9 H (Ref Range: 0-4 %) 3.2 (Ref Range: 0-4 %) Basophils Percent Auto 0.8 (Ref Range: 0-2 %) 1.3 (Ref Range: 0-2 %) 0.9 (Ref Range: 0-2 %) NRBC Pct Auto 0.0 (Ref Range: 0.0-0.2 /100WBC) 0.0 (Ref Range: 0.0-0.2 /100WBC) 0.0 (Ref Range: 0.0-0.2 /100WBC) Neutrophils Absolute Auto 2.6 (Ref Range: 2.0-8.3 x10*3/uL) 2.8 (Ref Range: 2.0-8.3 x10*3/uL) 2.5 (Ref Range: 2.0-8.3 x10*3/uL) Imm Gran Abs Auto 0.02 (Ref Range: 0.00-0.03 X10*3/uL) 0.01 (Ref Range: 0.00-0.03 X10*3/uL) 0.01 (Ref Range: 0.00-0.03 X10*3/uL) Lymphocytes Absolute Auto 1.5 (Ref Range: 1.2-4.9 X10*3/uL) 1.9 (Ref Range: 1.2-4.9 X10*3/uL) 1.5 (Ref Range: 1.2-4.9 X10*3/uL) Monocytes Absolute Auto 0.5 (Ref Range: 0.1-1.2 X10*3/uL) 0.5 (Ref Range: 0.1-1.2 X10*3/uL) 0.5 (Ref Range: 0.1-1.2 X10*3/uL) Eosinophils Absolute Auto 0.2 (Ref Range: 0.0-0.4 X10*3/uL) 0.3 (Ref Range: 0.0-0.4 X10*3/uL) 0.2 (Ref Range: 0.0-0.4 X10*3/uL) Basophils Absolute Auto 0.0 (Ref Range: 0.0-0.2 X10*3/uL) 0.1 (Ref Range: 0.0-0.2 X10*3/uL) 0.0 (Ref Range: 0.0-0.2 X10*3/uL) NRBC Abs Auto 0.000 (Ref Range: 0.0-0.012 X10*3/uL) 0.000 (Ref Range: 0.0-0.012 X10*3/uL) 0.000 (Ref Range: 0.0-0.012 X10*3/uL) * Lab:Prostate Specific Antige n * Collection Date 10/04/2024 08/07/2024 03/29/2024 Collection Time 11:50 AM 11:54 AM 12:18 PM Order Date 10/04/2024 08/07/2024 03/29/2024 Prostate Specific Antigen 1.06 (Ref Range: <0.05-4.0 ng/mL) 1.41 (Ref Range: <0.05-4.0 ng/mL) 1.41 (Ref Range: <0.05-4.0 ng/mL) * Lab:Gamma Glutamyl Transpept idase * Collection Date 10/04/2024 11/22/2023 Collection Time 11:50 AM 11:30 AM Order Date 10/04/2024 11/22/2023 Gamma Glutamyl Transpeptidase 28 (Ref Range: 11-51 U/L) 32 (Ref Range: 11-51 U/L) * Lab:Comprehensive Met. Panel * Collection Date 10/04/2024 05/10/2022 04/12/2021 Collection Time 11:50 AM 12:10 PM 12:35 PM Order Date 10/04/2024 05/10/2022 04/12/2021 Sodium 143 (Ref Range: 135-145 mmol/L) 141 (Ref Range: 135-145 mmol/L) 143 (Ref Range: 135-145 mmol/L) Bilirubin Total 0.4 (Ref Range: 0.0-1.0 mg/dL) 0.3 (Ref Range: 0.0-1.0 mg/dL) 0.6 (Ref Range: 0.0-1.0 mg/dL) Aspartate Amino Transferase 45 H (Ref Range: 5-37 U/L) 37 (Ref Range: 5-37 U/L) 31 (Ref Range: 5-37 U/L) Alanine Aminotransferase 53 H (Ref Range: 0-40 U/L) 49 H (Ref Range: 0-40 U/L) 47 H (Ref Range: 0-40 U/L) Total Protein 7.8 (Ref Range: 6.5-8.0 g/dL) 7.7 (Ref Range: 6.5-8.0 g/dL) 7.7 (Ref Range: 6.5-8.0 g/dL) Albumin Level 4.3 (Ref Range: 3.5-5.0 g/dL) 4.4 (Ref Range: 3.5-5.0 g/dL) 4.5 (Ref Range: 3.5-5.0 g/dL) Alkaline Phosphatase 54 (Ref Range: 39-117 U/L) 63 (Ref Range: 39-117 U/L) 56 (Ref Range: 39-117 U/L) Potassium 4.0 (Ref Range: 3.3-5.1 mmol/L) 3.6 (Ref Range: 3.3-5.1 mmol/L) 4.1 (Ref Range: 3.3-5.1 mmol/L) Chloride 111 H (Ref Range: 96-108 mmol/L) 108 (Ref Range: 96-108 mmol/L) 111 H (Ref Range: 96-108 mmol/L) Carbon Dioxide 26 (Ref Range: 22-29 mmol/L) 24 (Ref Range: 22-29 mmol/L) 24 (Ref Range: 22-29 mmol/L) Anion Gap 10 L (Ref Range: 12-20) 13 (Ref Range: 12-20) 12 (Ref Range: 12-20) Blood Urea Nitrogen 14 (Ref Range: 9-16 mg/dL) 13 (Ref Range: 9-16 mg/dL) 18 H (Ref Range: 9-16 mg/dL) Creatinine 0.98 (Ref Range: 0.5-1.4 mg/dL) 1.09 (Ref Range: 0.5-1.4 mg/dL) 0.97 (Ref Range: 0.5-1.4 mg/dL) Estimated Glomerular Filt Rate > 60 > 60 > 60 Glucose Random 91 (Ref Range: 60-115 mg/dL) 94 (Ref Range: 60-115 mg/dL) 82 (Ref Range: 60-115 mg/dL) Calcium 8.6 (Ref Range: 8.4-10.2 mg/dL) 9.0 (Ref Range: 8.4-10.2 mg/dL) 9.7 (Ref Range: 8.4-10.2 mg/dL) ???Lab:Erythrocyte Sedimentation Rate (Order Date - 10/04/2024) (Collection Date & Time - 10/04/2024 11:50 AM)?ValueReference Range?Erythrocyte Sedimentation Exgb55-78 - MM/HR ???Lab:URINE DIP STICK (Order Date - 08/14/2024) (Collection Date & Time - 08/14/2024)?ValueReference Range?SGNegative1.005 - 1.025?pH 5.05.0 - 9.0?LEUNegativeNegative -?NITNegativeNegative - ?RZW96Fuyvefms - Trace?GLUNegativeNegative -?KET1.025 Negative -?UBG0.20.1 - 1.8?BILNegative0.2 - 1.3?BLDNegative Negative -?MenstratingN/A * Lab:Gianna huerta Fast * Collection Date 08/07/2024 03/29/2024 11/22/2023 Collection Time 11:55 AM 12:18 PM 11:30 AM Order Date 08/07/2024 03/29/2024 11/22/2023 Sodium 142 (Ref Range: 135-145 mmol/L) 140 (Ref Range: 135-145 mmol/L) 140 (Ref Range: 135-145 mmol/L) Bilirubin Total 0.6 (Ref Range: 0.0-1.0 mg/dL) 0.8 (Ref Range: 0.0-1.0 mg/dL) 0.7 (Ref Range: 0.0-1.0 mg/dL) Aspartate Amino Transferase 57 H (Ref Range: 5-37 U/L) 41 H (Ref Range: 5-37 U/L) 41 H (Ref Range: 5-37 U/L) Alanine Aminotransferase 62 H (Ref Range: 0-40 U/L) 50 H (Ref Range: 0-40 U/L) 57 H (Ref Range: 0-40 U/L) Total Protein 8.1 H (Ref Range: 6.5-8.0 g/dL) 8.0 (Ref Range: 6.5-8.0 g/dL) 7.8 (Ref Range: 6.5-8.0 g/dL) Albumin Level 4.5 (Ref Range: 3.5-5.0 g/dL) 4.5 (Ref Range: 3.5-5.0 g/dL) 4.3 (Ref Range: 3.5-5.0 g/dL) Alkaline Phosphatase 59 (Ref Range: 39-117 U/L) 54 (Ref Range: 39-117 U/L) 58 (Ref Range: 39-117 U/L) Potassium 4.1 (Ref Range: 3.3-5.1 mmol/L) 4.2 (Ref Range: 3.3-5.1 mmol/L) 3.7 (Ref Range: 3.3-5.1 mmol/L) Chloride 108 (Ref Range: 96-108 mmol/L) 110 H (Ref Range: 96-108 mmol/L) 109 H (Ref Range: 96-108 mmol/L) Carbon Dioxide 26 (Ref Range: 22-29 mmol/L) 23 (Ref Range: 22-29 mmol/L) 26 (Ref Range: 22-29 mmol/L) Anion Gap 12 (Ref Range: 12-20) 11 L (Ref Range: 12-20) 9 L (Ref Range: 12-20) Blood Urea Nitrogen 13 (Ref Range: 9-16 mg/dL) 19 H (Ref Range: 9-16 mg/dL) 17 H (Ref Range: 9-16 mg/dL) Creatinine 1.09 (Ref Range: 0.5-1.4 mg/dL) 1.02 (Ref Range: 0.5-1.4 mg/dL) 0.86 (Ref Range: 0.5-1.4 mg/dL) Estimated Glomerular Filt Rate > 60 > 60 > 60 Glucose Fasting 91 (Ref Range: 60-99 mg/dL) 89 (Ref Range: 60-99 mg/dL) 91 (Ref Range: 60-99 mg/dL) Calcium 9.3 (Ref Range: 8.4-10.2 mg/dL) 9.3 (Ref Range: 8.4-10.2 mg/dL) 8.7 (Ref Range: 8.4-10.2 mg/dL) * Lab:Lipid Panel * Collection Date 08/07/2024 03/29/2024 11/22/2023 Collection Time 11:55 AM 12:18 PM 11:30 AM Order Date 08/07/2024 03/29/2024 11/22/2023 Triglycerides 214 H (Ref Range: <150 mg/dL) 141 (Ref Range: <150 mg/dL) 157 H (Ref Range: <150 mg/dL) Cholesterol 187 (Ref Range: <200 mg/dL) 203 H (Ref Range: <200 mg/dL) 188 (Ref Range: <200 mg/dL) LDL Cholesterol Calculated 113 H (Ref Range: <100 mg/dL) 141 H (Ref Range: <100 mg/dL) 124 H (Ref Range: <100 mg/dL) HDL Cholesterol 32 L (Ref Range: >40 mg/dL) 34 L (Ref Range: >40 mg/dL) 33 L (Ref Range: >40 mg/dL) Assessment: * Assessment: 1. P rostate cancer - C61 (Primary) N otes :His PSA has fallen to 1.06. He completed his radiation in October 2023 at [facility]. This value will be observed. 2 . E ssential hypertension - I10 N otes :His blood pressure is stable. I recommended aggressive weight loss and sodium restriction. 3 . O besity (BMI 30.0-34.9) - E66.9 N otes :He weighs 197 pounds. His appetite is good. We discussed his weight loss strategy. We reviewed his diet and nutrition. We made a plan to lose weight at a rate of one half of a pound per week. He was encouraged to be physically active. 4 . B enign prostatic hyperplasia, unspecified whether lower urinary tract symptoms present - N40.0 N otes :He arises from sleep once or twice a night to urinate. We have discussed lifestyle modifications he could make to reduce nocturia. He remains under the care of urology. 5 . F ormer smoker - Z87.891 N otes :He is highly motivated not to smoke. We reviewed his plan to prevent relapse in times of stress and illness. 6 . C hronic obstructive pulmonary disease, unspecified - J44.9 ?Notes :He is breathing comfortably. He is moving air well without obstruction. He is no longer smoking. Plan: * Treatment: 2. O besity (BMI 30.0-34.9) L AB: PROFILE, FASTING (COMPREHENSIVE METABOLIC) L AB: GGT L AB: PSA, TOTAL L AB: CBC WITH AUTO DIFF L AB: Lipid Panel 3. B enign prostatic hyperplasia, unspecified whether lower urinary tract symptoms present L AB: GGT L AB: PSA, TOTAL 4. O thers Continue amLODIPine Besylate Tablet, 10 MG, TAKE 1 TABLET BY MOUTH EVERY DAY. ? Referral To:[facility] Reason:Evaluate and Treat Large jatin on neck * Procedure Codes: * Preventive Medicine: Counseling: C are goal follow-up plan: Counseling for abnormal BMI given Y es Above Normal BMI Follow-up D ietary management education, guidance, and counseling, Dietary needs education, Exercise promotion: strength training, Exercise promotion: stretching, Feeding regime, Giving encouragement to exercise, Lifestyle education regarding diet, Nutrition / feeding management, Nutrition therapy, Prescribed activity/exercise education, Prescribed diet education, Prescribed dietary intake, Special diet education, Weight monitoring , Intervention, Order not done: Medical or Other reason not done S moking/Tobacco Use Patient counseled on the dangers of tobacco use and urged to quit. 0 10/14/2024 COPD Care Plan: P atient Lifestyle Goals R elieve symptoms and improve quality of life, Reduce number of ED and hospitalizations, Be able to be more active with friends and family. T reatment Goals E at a nutritious diet and increase water consumption to 6-8 glasses a day, Eat 4- 5 small meals throughout the day. B arriers n o barriers. S elf-Managment Goals G et an air purifier for the rooms you are in the most, Eat a healthy diet, Exercise at least 3xs per week for at least 30 mins.? * Follow Up: 3 Months (Reason: OV, Regular check-up and follow-up on mass removal) * Images: * Sign off status: Completed true * Provider: Abram Bellamy MD Date: 0 10/14/2024 Generated for Sebastián remy/Taylor/Tonyransmitting on: 0 05/13/2025 01:23 PM EDT History and Physical Notes * HPI (History of Present Illness) Category Sub-Category Detail Notes Telehealth Location of [facility] rendering services:: {...} [address] [place] [id number] Location of patient:: address listed in demographics for today's visit Patient identification confirmed using:: Name, Telehealth method:: Telephone only. Aditi ent not visible to care provider. Consent:: Patient verbally c onsented to treatment, Patient verbally consented to billing insurance company, Patient informed of any privacy concerns related to method of visit Total time spent with patient (mins): 22 Consultation Request Notes Referral Date Referring Provider Referred Provider Not hillary 10/14/2024 Micah Bellamy John Evaluate and Treat Large jatin on neck
[2025-05-13 13:18] LABS: MANUAL DIFF FLAG NO
--- OUTSIDE RECORDS SUMMARY | 2025-05-13 13:23 | XMS_ITS | Clinical Summary ---
Author Organization [facility] it Address [address] [place] [address] Care Team Providers Care Forcer Maker Name Role Phone Unavailable Primary Care Provider [...] Panel) 10/24/2023 Colorectal Cancer Screening: Colonoscopy 10/24/2023 Falls Risk Assessment 10/24/2023 Hepatitis C Screening 10/24/2023 Social Influencers of Health Screening 10/24/2023 COVID-19 Vaccine (1 - 2023-2 5 season) 2024 Depression Screening 09/25/2024 Influenza Vaccine (#1) 2025 RSV Immunization Adult Patie nts (1 [...]
[2025-05-13 13:30] LABS: Hematocrit 47.8 % (42.0-52.0); Hemoglobin 16.2 g/dl (14.0-18.0); Imm Gran Abs Auto 0.01 X10*3/uL (0.00-0.03); Imm Gran Pct Auto 0.2 % (0.0-0.4); Lymphocytes Absolute Auto 1.6 X10*3/uL (1.2-4.9); Mean Corpuscular HGB Conc 33.9 g/dl (31.0-36.0); Mean Corpuscular Hemoglobin 29.7 pg (27.0-33.0); Mean Corpuscular Volume 87.5 fL (80.0-98.0); NRBC Abs Auto 0.000 X10*3/uL (0.0-0.012); NRBC Pct Auto 0.0 /100WBC (0.0-0.2); Platelet Count 269 X10*3/uL (160-400); Red Blood Count 5.46 X10*6/uL (4.60-5.80); White Blood Count 4.7 X10*3/uL (4.8-10.8)
[2025-05-13 13:43] LABS: Alanine Aminotransferase 58 U/L (0-40); Albumin Level 4.6 g/dL (3.5-5.0); Alkaline Phosphatase 54 U/L (39-117); Anion Gap 12 (12-20); Aspartate Amino Transferase 49 U/L (5-37); Blood Urea Nitrogen 22 mg/dL (9-16); Calcium 9.0 mg/dL (8.4-10.2); Carbon Dioxide 24 mmol/L (22-29); Chloride 109 mmol/L (96-108); Cholesterol 186 mg/dL (<200); Estimated Glomerular Filt Rate > 60; HDL Cholesterol 28 mg/dL (>40); Potassium 3.8 mmol/L (3.3-5.1); Sodium 141 mmol/L (135-145); Total Protein 7.6 g/dL (6.5-8.0); Triglycerides 149 mg/dL (<150)
[2025-05-13 13:58] LABS: Prostate Specific Antigen 0.98 ng/mL (<0.05-4.0)
== END 2025-05-13 11:55 | disposition home or self-care (01) ==
LOC: HO.10HDL 11:54
PROVIDERS: Visit Provider Internal Medicine Medical Oncology
DX: I10 Essential (primary) hypertension (principal); N40.0 Benign prostatic hyperplasia without lower urinary tract symptoms; E66.9 Obesity, unspecified; Z12.5 Encounter for screening for malignant neoplasm of prostate; Z13.6 Encounter for screening for cardiovascular disorders
CPT/HCPCS: 36415; 80053; 80061; 84153; 85025